=== PATIENT | male | born 1945 | race Caucasian/White ===

== ENCOUNTER 2021-07-19 15:16 | Inpatient (IN) | payer MEDICARE, OTHER, SELFPAY ==
[2021-07-19] VITALS (20 sets, daily range): BP systolic 124–175; BP diastolic 67–95; PULSE 57–127; RESP 18–32; TEMP 36–36.7; O2SAT 82–100; BMI 16.5
--- NOTE | ~2021-07-19 | XR_ITS ---
EXAMINATION: XR chest 1V portable EXAM DATE: 07/19/2021 15:36 INDICATION: COPD exacerbation. TECHNIQUE: Portable AP frontal chest x-ray was obtained. There is no prior study for comparison. FINDINGS: The lungs are hyperinflated which can be seen with chronic obstructive pulmonary disease (a clinical diagnosis of functional impairment), but is not diagnostic of it. There is scattered post infectious residua. Small amount of bibasilar linear opacities, probably atelectasis or scarring. No pneumothorax or pleural effusion. Bones appear osteopenic. Old right rib fractures. There is aortic a rteriosclerosis. Normal cardiac size. Several metallic pellets overlying right axilla. IMPRESSION: 1. Severe chronic hyperinflation. 2. Bibasilar linear opacities probably scarring or atelectasis. 3. Scattered postinfectious residua. Reviewed, dictated and finalized at location B.
--- NOTE | ~2021-07-19 | US_ITS ---
EXAMINATION: US venous doppler [facility] DATE: 07/21/2021 12:11 INDICATION: Lower limb swelling. TECHNIQUE: Grayscale ultrasound images without and with compression and Doppler ultrasound images of the bilateral lower extremity veins were obtained. COMPARISON: None. FINDINGS: The visualized portions of right common femoral vein, profunda (deep) femoral vein, femoral vein, pop liteal vein, peroneal veins, posterior tibial veins, and greater saphenous vein outflow are patent. S ubcutaneous edema is noted. The visualized portions of left common femoral vein, profunda femoral vein, femoral vein, popliteal v ein, peroneal veins, posterior tibial veins, and greater saphenous vein outflow are patent. Subcutane ous edema is noted. IMPRESSION: 1. No deep venous thrombosis. Reviewed, dictated and finalized at location A.
--- NOTE | 2021-07-19 15:19 | ED.GENADULT ---
HPI - General Adult General Chief complaint: Shortness of Breath/Dyspnea Stated complaint: SOB Time Seen by Provider: 07/19/21 15:18 Source: patient and EMS Mode of arrival: EMS Limitations: no limitations History of Present Illness HPI narrative: Patient brought in by EMS, they were called for shortness of breath. In route they treated Mr. Sweet with 125 mg of Solu-Medrol, 2 mg magnesium and an albuterol treatment. On arrival here he did best breathes in a tripod position. He states that he received his Covid vaccine last week, his 1st. he has had a congested but nonproductive cough. Onset (ago): day(s) Related Data Allergies Allergy/AdvReac Type Severity Reaction Status Date / Time No Known Drug Allergies Allergy Verified 07/19/21 18:17 Review of Systems Review of Systems: All systems reviewed & are unremarkable except as noted in HPI and below PMFSH Family History Family History Mother Family history of malignant neoplasm, Onset Age: 75 Father Carcinoma of colon, Onset Age: 75 Patient's father is Social History Social History (Updated 07/19/21 @ 16:34 by Concetta Michaels PA-C) Smoking status: Current every day smoker Alcohol intake: never Substance use: never Living arrangements: with family Additional living arrangements comments: , daughter and grandchildren Exam Const: General: alert Nutritional Appearance: thin (cahectic) Orientation/consciousness: patient oriented x3 HENMT: Head: normal to inspection Eyes: Conjunctivae: conjunctivae normal Pupils: Equal, round and reactive pupils present Resp: Effort & Inspection: labored, retractions and uses accessory muscles Auscultation: diminished lung sounds bilateral and diffuse Cardio: Rate: tachycardic Rhythm: regular rhythm Neuro: General: patient oriented x3 Extrem: General: clubbing Other: swelling to bilat LE up to mid calf Psych: Appearance: disheveled Mental Status: mental status grossly normal Course Course Emergency Course: spoke with hospitalist, will admit for BiPAP and IV abx. Plan discussed with patient, he is in agreement. RN had conversation with and is concerned for patients mental health, hospitalist updated and RN placed note in chart. Vital Signs Vital signs: Vital Signs Pulse Rate 127 H 07/19/21 15:16 Respiratory Rate 32 H 07/19/21 15:16 Blood Pressure 158/84 H 07/19/21 15:16 Pulse Oximetry 82 L 07/19/21 15:16 Pulse Rate 100 07/19/21 18:01 Respiratory Rate 24 H 07/19/21 18:01 Blood Pressure 158/84 H 07/19/21 15:16 Pulse Oximetry 94 07/19/21 18:01 Medical Decision Making Vital Signs Vital Signs: Vital Signs Pulse Rate 127 H 07/19/21 15:16 Respiratory Rate 32 H 07/19/21 15:16 Blood Pressure 158/84 H 07/19/21 15:16 Pulse Oximetry 82 L 07/19/21 15:16 Pulse Rate 100 07/19/21 18:01 Respiratory Rate 24 H 07/19/21 18:01 Blood Pressure 158/84 H 07/19/21 15:16 Pulse Oximetry 94 07/19/21 18:01 Lab Data Result diagrams: 07/19/21 15:42 07/19/21 15:42 Labs: Lab Results 07/19/21 07/19/21 Range/Units 15:42 15:42 WBC 15.8 H (4.5-10.0) K/mm3 RBC 3.91 L (4.6-6.20) M/mm3 Hgb 12.6 L (14.0-18.0) g/dL Hct 38.7 L (42.0-52.0) % MCV 99.0 (80-100) fl MCH 32.2 (26-34) pg MCHC 32.6 (32-36) g/dl RDW 14.1 (11.5-14.5) % Plt Count 341 (150-375) k/mm3 MPV 9.3 (7.4-10.4) fl Immature Gran % (Auto) Not Reportable Neut % (Auto) Not Reportable Lymph % (Auto) Not Reportable [place] % (Auto) Not Reportable Eos % (Auto) Not Reportable Baso % (Auto) Not Reportable Lymph # (Auto) Not Reportable [place] # (Auto) Not Reportable Eos # (Auto) Not Reportable Baso # (Auto) Not Reportable Abs Immat Gran (auto) Not Reportable Absolute Neuts (auto) Not Reportable Absolute Nucleated RBC
--- NOTE | 2021-07-19 15:24 | ECG_ITS ---
Measurements Intervals [place] Rate: 91 P: 83 MI: 147 QRS: 80 QRSD: 146 T: 70 QT: 370 QTc: 457 Interpretive Statements SINUS RHYTHM ATRIAL PREMATURE COMPLEX POSSIBLE LEFT ATRIAL ENLARGEMENT RIGHT BUNDLE BRANCH BLOCK MINIMAL Q WAVES- INFERIOR LEADS BASELINE ARTIFACT- I, II, III, AVR, V3-V6 ABNORMAL ECG Electronically Signed On 07-19-2021 18:58:34 CDT by Nicanor Chino D.O.
--- NOTE | 2021-07-19 15:43 | PC.NURSE ---
Pt's SpO2 91% while tripodding on side of bed. Pt's feet assisted into stretcher for portable chest x-ray. Pt SpO2 then decreased to 84% on the NC. Pt again to tripodding position on side of bed, SpO2 improved again to 93%. Respiratory now at bedside for gas then Bipap. Explain plan to patient, verbalized understanding.
[2021-07-19 15:58] LABS: Hematocrit 38.7 % (42.0-52.0); Hemoglobin 12.6 g/dL (14.0-18.0); Mean Corpuscular HGB Conc 32.6 g/dl (32-36); Mean Corpuscular Hemoglobin 32.2 pg (26-34); Mean Platelet Volume 9.3 fl (7.4-10.4); Platelet Count Result 341 k/mm3 (150-375); Red Blood Count 3.91 M/mm3 (4.6-6.20); Red Cell Distribution Width 14.1 % (11.5-14.5); White Blood Count 15.8 K/mm3 (4.5-10.0)
[2021-07-19 16:08] LABS: Alveolar/Arterial O2 Gradient 137.9 mmHg; Base Excess ABG 5.7 mEq/l (+/-2.0); Fractional Inspired Oxygen 36 %; HCO3 ABG 31.8 mEq/l (22.0-26.0); Oxygen Content ABG 16.6 %vol (16.0-22.0); Oxygen Saturation ABG 89.8 % (95.0-100.0); Oxyhemoglobin 87.5 % THb (90.0-100.0); PCO2 ABG 52.3 mmHg (35.0-45.0); PO2 ABG 58.1 mmHg (80.0-100.0); PO2 FiO2 Ratio Arterial Blood 1.61 %; Total Hemoglobin 13.5 g/dL (12.0-18.0); pH ABG 7.402 (7.350-7.450)
[2021-07-19 16:09] LABS: Device NASAL CANNULA; Modified Allen's Test Pass; Site Drawn LEFT BRACHIAL
[2021-07-19 16:26] LABS: Anion Gap 8 mmol/L (8-16); Blood Urea Nitrogen 20 mg/dL (9-20); Calcium 9.4 mg/dL (8.4-10.2); Carbon Dioxide 32 mmol/L (22-30); Chloride 94 mmol/L (98-107); Estimated CRCL calculation 77 ml/min; Estimated Glomerular Filt Rate > 60; Glucose 128 mg/dL (65-110); Sodium 134 mmol/L (137-145)
[2021-07-19 16:30] LABS: Band Neutrophils Percent 5 % (0-6); Lymphocytes Absolute Manual 0.79 K/mm3 (1.1-4.5); Monocytes Absolute Manual 1.26 K/mm3 (0.1-0.90); Monocytes Percent Manual 8 % (3-9); Neutrophils Absolute Manual 13.74 K/mm3 (1.3-6.7); Neutrophils Percent Manual 82 % (46-73); Platelet Estimate Adequate (Adequate); Total Cells Counted 100
--- NOTE | 2021-07-19 17:30 | PC.NURSE ---
Pt self-removed his Bipap mask, states he doesn't like it. Pt provided thorough education on what the bipap mask is doing for his lungs. Pt temporarily placed on a NRB mask. Pt needed to sit up on side of bed as soon as bipap mask came off, was previously able to rest legs up on bed with it on. Pt verbalized understanding of needing bipap, states he just wants a break for a few minutes, then will put it back on. Provider made aware. SpO2 95% on the NRB.
[2021-07-19] MEDS: IPRATROPIUM BR 0.02% INH SOLN 0.5 MG/2.5 ML VIAL INHALATION ×2 (17:45→20:16)
[2021-07-19] MEDS: ALBUTEROL SULFATE NEB 2.5 MG/3 ML INH INHALATION (17:50)
[2021-07-19] MEDS: levoFLOXacin 500 MG/D5W 100 ML 500 MG/100 ML BAG 100 MG IVPB (18:04)
--- NOTE | 2021-07-19 18:30 | PCCCNOTE ---
Called to ER for care coordination as patient wanting to complete form for DNR status. Spoke with patient he confirms that he is DNR, he does not have any healthcare power of workers compensation attorney, advance directive or living will. Asked if he wanted to discuss with his before completing form but he declines. POLST form completed by patient, NANDA Michaels and witnessed by associate director career services with patient.Copy placed on chart and copy given to patient. Patient understands that this is voluntary and it be changed or revoked.
--- NOTE | 2021-07-19 18:40 | PC.NURSE ---
This RN received phone call from patient's , Silvia. Silvia provided update on patient's condition. Silvia also reported concerns she heard from pt's friend. Silvia states that pt smokes approx 2 packs/day, pt smokes inside, therefore they have separate bedrooms. Silvia states that patient doesn't hardly come out of his bedroom. Silvia reports that pt has a gun in the garage, and that she just heard from his friend that he has been trying to get his friends to obtain bullets for his gun. Per Silvia relaying friends' concerns, this was due to pt having intentions to kill himself, driven by him being tired of not being able to breathe. Silvia reports no recent change in behavior other than his usual not hardly coming out of his bedroom, but she attributed that to his worsened shortness of breath over the last week. Silvia was tearful on the phone. Pt did not endorse SI initially upon arrival to ED/initial [place]. Discussed these concerns with the ED provider, states she will speak with admitting team about this conversation.
[2021-07-19] MEDS: ALBUTEROL SULFATE NEB 2.5 MG/0.5 ML INH 5 MG INHALATION (20:15)
--- NOTE | 2021-07-19 20:26 | PM.IMHP ---
H&P: HPI History of Present Illness Date/Time: 07/19/21 20:26 this is a 76-year-old male patient who resides with his . The patient has a history of COPD and still continues to smoke a pack and half a cigarettes a day. The patient tells me that he wears oxygen at home. He also has been using his albuterol inhaler without relief of symptoms. The patient was brought to the emergency room due to shortness of breath. EN route the patient was given Solu-Medrol and magnesium in the ambulance. The patient received his COVID vaccine last week. The patient was placed on a BiPAP machine and is very hard of hearing. The patient was started on Levaquin and nebulizer treatments. The patient is being admitted to observation status on the date of service of 07/19/2021. Chief Complaint: Shortness of breath shortness of breath Review of Systems Review of Systems: All systems reviewed & are unremarkable except as noted in HPI and below Constitutional: Constitutional: Reports as per HPI and Reports no additional constitutional complaints Eyes: Eyes: Reports as per HPI and Reports no additional eye complaints ENT: Reports system reviewed and no additional complaints, except as documented and Reports Normal hearing present Cardiovascular: Cardiovascular: Reports no additional cardiovascular complaints Respiratory: Respiratory: Reports no additional respiratory complaints and Reports no additional respiratory complaints Gastrointestinal: Gastrointestinal: Reports as per HPI and Reports no additional gastrointestinal complaints Musculoskeletal: Musculoskeletal: Reports no additional musculoskeletal complaints Integumentary/Breasts: Skin/Breast: Reports system reviewed and no additional complaints, except as docu and Reports as per HPI Neurologic: Reports system reviewed and no additional complaints, except as documented, Reports as per HPI and Reports Normal hearing present Psychiatric: Psychiatric: Reports no additional psychiatric complaints and Reports as per HPI Endocrine: Endocrine: Reports no additional endocrine complaints Hematologic/Lymphatic: Hematologic/Lymphatic: Reports no additional hematologic/lymphatic complaints Allergic/Immunologic: Allergic/Immunologic: Reports no additional allergic/immunologic complaints [facility] Past Medical History Medical History (Updated 07/19/21 @ 20:40 by Smitha Damon NP) Benign prostate hyperplasia Chronic respiratory failure with hypoxia and hypercapnia COPD (chronic obstructive pulmonary disease) Hypertension Tobacco abuse Surgical History Surgical History (Updated 07/19/21 @ 20:40 by Smitha Damon NP) H/O colonoscopy with polypectomy History of total left hip arthroplasty Family History Family History Mother Family history of malignant neoplasm, Onset Age: 75 Father Carcinoma of colon, Onset Age: 75 Patient's father is Social History Social History (Updated 07/19/21 @ 20:41 by Smitha Damon NP) Social History: The patient stated that he still continues to smoke 1 and half packs of cigarettes a day. He has had 5 children and he lives with his . The patient does have living well with him. 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 is durable power bankruptcy attorney for healthcare. Code status DNR Smoking status: Current every day smoker Alcohol intake: never Substance use: never Living arrangements: with family Additional living arrangements comments: , daughter and grandchildren Meds Home Medications and Allergies Allergies Allergy/AdvReac Type Severity Reaction Status Date / Time No Known Drug Allergies Allergy Verified 07/19/21 18:17 Vital Signs Vital Signs - 24 hr 07/19/21 15:16 07/19/21 15:38 07/19/21 15:45 Pulse Rate 127 H 94 Respiratory Rate 32 H 24 H Blood Pressure 158/84 H Pulse Oximetry 82 L 87 L 99 07/19/21 15:48 07/19/21 17:45 07/19/21
--- NOTE | 2021-07-19 21:55 | PC.NURSE ---
This RN spoke with patient regarding the previous statements made by his concerning suicidal ideations. Pt reports that these thoughts are not ongoing, that he is not currently having any thoughts of SI. Pt endorses having a gun at home and endorses previously having thoughts of taking his life with it due to his chronic worsening shortness of breath. Pt states that when he can't breath, his chest hurts from coughing, and he is struggling and panicking due to his SOB, that he has thought about ending it . Pt states that now that his breathing is improved since arriving at the hospital, that he does not foresee those thoughts coming back . Pt states the SI were solely related to him struggling to breathe and panicking. Denies any suicidal thoughts currently. Denies depressive feelings. This conversation was discussed with chargemaster specialistAKASH Wooten in ED, as well as warehouse team leader. No sitter needed at this time.
[2021-07-19] MEDS: NICOTINE (*PBKC) 21 MG PATCH 1 PATCH TRANSDERM (21:58)
[2021-07-19] MEDS: SODIUM CHLORIDE 0.9% IV 1,000 ML 125 ML IV CONT (21:58)
--- NOTE | 2021-07-19 22:20 | PC.NURSE ---
Repeat [place] score no risk due to the wording, since last asked . Pt acknowledges previous thoughts, has not had any of these thoughts or intentions since arriving to the hospital/initial [place].
--- NOTE | 2021-07-19 22:45 | ADMGEN ---
This patient, Manolo Sweet, was admitted to IMU Room 204-01. Patient/family oriented to hospital policies and general routines including ID bracelet, bed and alarms, visiting hours, pain management, procedures, bathroom and other care routines, personal items, smoking policy, room service/diet, and visiting hours. Information on how to activate the Rapid Response Team has been discussed. Patient/Family are encouraged to report perceived risks to care and to ask questions if they do not understand what they are told or what they should do.
--- NOTE | 2021-07-19 23:10 | PC.NURSE ---
Patient states he has planned for a long time now to commit suicide once his health deteriorated. States his original plan was to shoot himself with a firearm. States he communicated this plan to a friend who communicated this plan to a family member who then removed the bullets from his firearm. Patient states he recently attempted to use his firearm and noted bullets had been removed. Patient states these events have occured within the last month.
[2021-07-19] MEDS: methylPREDNISolone SOD SUCC 125 MG VIAL 60 MG IV PUSH (23:38)
[2021-07-20] VITALS (22 sets, daily range): BP systolic 148–187; BP diastolic 68–88; PULSE 68–86; RESP 16–26; TEMP 36.4–37; O2SAT 90–94; BMI 16.5
[2021-07-20] MEDS: ALBUTEROL SULFATE NEB 2.5 MG/0.5 ML INH 5 MG INHALATION ×4 (01:09→21:14)
[2021-07-20] MEDS: IPRATROPIUM BR 0.02% INH SOLN 0.5 MG/2.5 ML VIAL INHALATION ×4 (01:09→21:14)
[2021-07-20 04:48] LABS: Basophils Percent Auto 0.1 % (0.2-1.2); Hematocrit 36.8 % (42.0-52.0); Hemoglobin 11.9 g/dL (14.0-18.0); Immature Granulocyte Absolute 0.08 K/mm3 (0.00-0.031); Immature Granulocyte Percent A 0.7 % (0-0.5); Lymphocytes Percent Auto 2.8 % (18.3-44.2); Mean Corpuscular HGB Conc 32.3 g/dl (32-36); Mean Corpuscular Hemoglobin 31.8 pg (26-34); Mean Corpuscular Volume 98.4 fl (80-100); Monocytes Absolute Auto 0.1 K/mm3 (0.1-0.6); Monocytes Percent Auto 0.7 % (2.6-8.5); Neutrophils Absolute Auto 10.2 K/mm3 (1.3-6.7); Neutrophils Percent Auto 95.7 % (45.5-73.1); Platelet Count Result 304 k/mm3 (150-375); Red Blood Count 3.74 M/mm3 (4.6-6.20); White Blood Count 10.7 K/mm3 (4.5-10.0)
[2021-07-20 04:59] LABS: Alanine Aminotransferase 20 U/L (4-50); Albumin Level 3.3 g/dL (3.5-5.1); Alkaline Phosphatase 83 U/L (38-126); Anion Gap 5 mmol/L (8-16); Aspartate Amino Transferase 24 U/L (17-59); Bilirubin,Total 0.6 mg/dL (0.2-1.3); Blood Urea Nitrogen 24 mg/dL (9-20); Calcium 9.2 mg/dL (8.4-10.2); Carbon Dioxide 31 mmol/L (22-30); Chloride 98 mmol/L (98-107); Estimated CRCL calculation 73 ml/min; Estimated Glomerular Filt Rate > 60; Glucose 174 mg/dL (65-110); Magnesium 2.5 mg/dL (1.6-2.3); Potassium 4.6 mmol/L (3.4-5.0); Sodium 134 mmol/L (137-145)
[2021-07-20] MEDS: SODIUM CHLORIDE 0.9% IV 1,000 ML 125 ML IV CONT (06:02)
[2021-07-20] MEDS: methylPREDNISolone SOD SUCC 125 MG VIAL 60 MG IV PUSH ×4 (06:03→23:48)
[2021-07-20] MEDS: ROFLUMILAST 500 MCG TABLET PO (09:02)
[2021-07-20] MEDS: ENOXAPARIN 40 MG/0.4 ML SYRINGE SUB-Q (09:02)
[2021-07-20] MEDS: TAMSULOSIN HCL 0.4 MG CAPSULE PO (09:02)
[2021-07-20] MEDS: NICOTINE (*PBKC) 21 MG PATCH 1 PATCH TRANSDERM (09:03)
--- NOTE | 2021-07-20 13:35 | PM.IMPN ---
Progress Note: A&P Assessment and Plan (1) Suicidal behavior: Code(s): R45.89 - Other symptoms and signs involving emotional state Status: Acute Assessment and Plan: Patient was in the IMU and according the records he made a statement that he wanted to shoot himself in the head, patient was transferred to the ICU for suicidal precautions - Continue sitter at bedside -patient currently denies any homicidal or suicidal ideation or behavior, he states that the interviewer last night did not get it correct as he does not want to harm himself at this time but he had in the past. -once medically stable will have crisis management evaluate the patient (2) COPD (chronic obstructive pulmonary disease): Code(s): J44.9 - Chronic obstructive pulmonary disease, unspecified Status: Chronic Assessment and Plan: COPD exacerbation r -continue levofloxacin -continue roflumilast -continue Solu-Medrol and supplemental oxygen (3) Tobacco abuse: Code(s): Z72.0 - Tobacco use Status: Chronic Assessment and Plan: Discussed with patient regarding cessation of smoking -patient has a nicotine patch (4) Benign prostate hyperplasia: Code(s): N40.0 - Benign prostatic hyperplasia without lower urinary tract symptoms Status: Chronic Assessment and Plan: Continue tamsulosin (5) Hypertension: Code(s): I10 - Essential (primary) hypertension Status: Chronic Assessment and Plan: Will add small dose of amlodipine Subjective Date/time seen: 07/20/21 13:35 Interval history: 76-year-old gentleman with history of COPD on home oxygen, tobacco abuse was admitted for COPD exacerbation. He was transferred to the ICU for suicidal ideation overnight. Patient seen and examined this morning, sitting on the side of the bed having breakfast. Patient states he feels much better, remains on 3 L nasal cannula with adequate O2 sats. Urine output has been adequate, patient is afebrile. White count trending down. Patient states he is not suicidal or homicidal and that the person was interviewing him last night guarded draw as he had said he was suicidal in the past but not at this time. Patient denies any chest pain, nausea, vomiting, abdominal pain, diarrhea Review of Systems Review of Systems: All systems reviewed & are unremarkable except as noted in HPI and below Exam Const: General: comfortable and no acute distress HENMT: Mouth: Yes moist mucous membranes Eyes: Sclera: sclerae normal Pupils: Equal, round and reactive pupils present Neck: Neck: supple Thyroid: thyroid normal Lymphatic: lymphadenopathy not noted Resp: Effort & Inspection: normal respiratory effort Auscultation: rales and diminished lung sounds Cardio: Rate: regular rate Rhythm: regular rhythm GI: Inspection: non-distended GI Palp: Yes Soft to palpation and No Tenderness to palpation present (GI) Auscultation: normal bowel sounds : Other: Deferred Urinary Catheter: Urinary Catheter: urine clear Skin: General skin exam: normal color and no rashes or lesions noted Neuro: Other: Patient is awake, alert, oriented, nonfocal, follows simple commands and answers to questions appropriately Extrem: General: normal to inspection, no edema and no pedal edema Psych: Mental Status: mental status grossly normal Affect: normal affect Objective Data Vital Signs Vital Signs: Vital Signs - 24 hr 07/19/21 15:16 07/19/21 15:38 07/19/21 15:45 Temperature Pulse Rate 127 H 94 Respiratory Rate 32 H 24 H Blood Pressure 158/84 H Pulse Oximetry 82 L 87 L 99 07/19/21 15:48 07/19/21 16:00 07/19/21 16:30 Temperature 98.1 F Pulse Rate 103 H 97 95 Respiratory Rate 30 H 30 H 28 H Blood Pressure 175/75 H 157/74 H Pulse Oximetry 93 93 99 07/19/21 17:45 07/19/21 17:55 07/19/21 17:56 Temperature Pulse Rate 104 H 100 94 Respiratory Rate 24 H 24 H 28 H Blood Pressure Pulse Oximetry
[2021-07-21] VITALS (18 sets, daily range): BP systolic 133–155; BP diastolic 61–86; PULSE 72–100; RESP 16–27; TEMP 36.4–36.6; O2SAT 86–94
[2021-07-21] MEDS: ALBUTEROL SULFATE NEB 2.5 MG/0.5 ML INH 5 MG INHALATION ×2 (02:53→08:52)
[2021-07-21] MEDS: IPRATROPIUM BR 0.02% INH SOLN 0.5 MG/2.5 ML VIAL INHALATION ×2 (02:54→08:53)
[2021-07-21] MEDS: methylPREDNISolone SOD SUCC 125 MG VIAL 60 MG IV PUSH ×2 (05:29→12:28)
[2021-07-21] MEDS: ENOXAPARIN 40 MG/0.4 ML SYRINGE SUB-Q (09:48)
[2021-07-21] MEDS: amLODIPine BESYLATE 5 MG TABLET PO (09:48)
[2021-07-21] MEDS: TAMSULOSIN HCL 0.4 MG CAPSULE PO (09:49)
[2021-07-21] MEDS: ROFLUMILAST 500 MCG TABLET PO (09:49)
[2021-07-21] MEDS: NICOTINE (*PBKC) 21 MG PATCH 1 PATCH TRANSDERM (09:49)
--- NOTE | 2021-07-21 13:56 | PCRCNOTE ---
Pt has home O2 currently with [facility] fx [phone] ph # [phone] Pt requires 2 L at rest and 4L with activity
--- NOTE | 2021-07-21 14:08 | PM.DS ---
DS: Admitting Diagnosis Discharge Date 07/21/2021 Admitting Diagnosis shortness of breath DS: Discharge Diagnosis Discharge Diagnosis (1) Suicidal behavior: Code(s): R45.89 - Other symptoms and signs involving emotional state Status: Acute Assessment and Plan: Patient was in the IMU and according the records he made a statement that he wanted to shoot himself in the head, patient was transferred to the ICU for suicidal precautions - Continue sitter at bedside -patient currently denies any homicidal or suicidal ideation or behavior, he states that the interviewer last night did not get it correct as he does not want to harm himself at this time but he had in the past. -once medically stable will have crisis management evaluate the patient (2) COPD (chronic obstructive pulmonary disease): Code(s): J44.9 - Chronic obstructive pulmonary disease, unspecified Status: Chronic Assessment and Plan: COPD exacerbation r -continue levofloxacin -continue roflumilast -continue Solu-Medrol and supplemental oxygen (3) Tobacco abuse: Code(s): Z72.0 - Tobacco use Status: Chronic Assessment and Plan: Discussed with patient regarding cessation of smoking -patient has a nicotine patch (4) Benign prostate hyperplasia: Code(s): N40.0 - Benign prostatic hyperplasia without lower urinary tract symptoms Status: Chronic Assessment and Plan: Continue tamsulosin (5) Hypertension: Code(s): I10 - Essential (primary) hypertension Status: Chronic Assessment and Plan: Will add small dose of amlodipine DS: Summary Hospital Course Reason for hospitalization: this is a 76-year-old male patient who resides with his . The patient has a history of COPD and still continues to smoke a pack and half a cigarettes a day. The patient tells me that he wears oxygen at home. He also has been using his albuterol inhaler without relief of symptoms. The patient was brought to the emergency room due to shortness of breath. EN route the patient was given Solu-Medrol and magnesium in the ambulance. The patient received his COVID vaccine last week. The patient was placed on a BiPAP machine and is very hard of hearing. The patient was started on Levaquin and nebulizer treatments. The patient is being admitted to observation status on the date of service of 07/19/2021. Chief Complaint: Shortness of breath shortness of breath Hospital Course: patient is 76-year-old male admitted with exacerbation of COPD patient had mentioned given to commit suicide, currently patient says he has no intention harm self, patient was seen by crisis team his med agreement with the patient to contact them and they went patient presenting with worse, will discharge patient home on tapering dose of steroid and he will continue DuoNeb home will give a short course of oral antibiotics. patient to follow-up with his primary care as soon as possible. Status at Discharge Functional status at discharge: uses cane/walker Overall status at discharge: patient is not back to baseline Time Spent with Patient Time attestation: Total time spent providing and/or coordinating discharge services: Patient was seen and examined at the time of the discharge Condition at discharge is stable Code status: Full code. Time spent preparing discharge summary, discharge medications, discussing discharge planning with case repairer and patient is 35 minutes. Time spent: Greater than 30 minutes Exam Narrative: appears chronically ill Patient is comfortable, NAD HEENT: eyes are clear and none icteric LUNGS: bilateral fair air entry with rhonchi and wheezing HEART: RR S1S2 ABD: BS+, Soft and nontender Lower extremities: no edema SKIN: nonjaundiced Neuro: grossly intact. DS: Data Data Completed and Pending Labs on day of discharge: Preliminary micro results at discharge 07/19/21 16:58 Blood Culture - Preliminary Blo
--- NOTE | 2021-07-21 14:47 | HOMEO2EVAL ---
Evaluation was performed at [facility] Home Oxygen Evaluation RC: Home Oxygen (O2) Evaluation Start: 07/21/21 12:46 Freq: ONCE Status: Active Protocol: RPE Activity Type Activity Date Activity User E-Sign Co-Sign Detail Recorded Client Recorded Date Recorded By Document 07/21/21 13:25 TUCKER [id number] 07/21/21 13:51 TUCKER Document 07/21/21 13:26 TUCKER [id number] 07/21/21 13:51 TUCKER Document 07/21/21 13:27 TUCKER [id number] 07/21/21 13:51 TUCKER Document 07/21/21 13:28 TUCKER [id number] 07/21/21 13:51 TUCKER Document 07/21/21 13:30 TUCKER [id number] 07/21/21 13:51 TUCKER Document 07/21/21 13:31 TUCKER [id number] 07/21/21 13:51 TUCKER Document 07/21/21 13:40 TUCKER [id number] 07/21/21 13:51 TUCKER 07/21/21 07/21/21 07/21/21 13:25 13:26 13:27 Home O2 Evaluation Test Phase Resting Resting Resting Oxygen Delivery Room Air Nasal Cannula Nasal Cannula Oxygen Flow Rate (L/min) 1 2 Pulse Oximetry (90-100 %) 86 L 87 L 91 Pulse Rate (60-100 beats/min) 84 84 Home Oxygen Evaluation Comments Treatment Charges O2 Evaluation - Inpatient 07/21/21 07/21/21 07/21/21 13:28 13:30 13:31 Home O2 Evaluation Test Phase Exercise Exercise Exercise Oxygen Delivery Nasal Cannula Nasal Cannula Nasal Cannula Oxygen Flow Rate (L/min) 2 3 4 Pulse Oximetry (90-100 %) 86 L 87 L 90 Pulse Rate (60-100 beats/min) 92 93 Home Oxygen Evaluation Comments Pt requires 2 L at rest and 4 L with activity Treatment Charges 07/21/21 13:40 Home O2 Evaluation Test Phase Resting Oxygen Delivery Nasal Cannula Oxygen Flow Rate (L/min) 2 Pulse Oximetry (90-100 %) 94 Pulse Rate (60-100 beats/min) 83 Home Oxygen Evaluation Comments Treatment Charges
--- NOTE | 2021-07-21 14:50 | HOMEO2EVAL ---
Evaluation was performed at [facility] Home Oxygen Evaluation RC: Home Oxygen (O2) Evaluation Start: 07/21/21 12:46 Freq: ONCE Status: Active Protocol: RPE Activity Type Activity Date Activity User E-Sign Co-Sign Detail Recorded Client Recorded Date Recorded By Document 07/21/21 13:25 TUCKER [id number] 07/21/21 13:51 TUCKER Document 07/21/21 13:26 TUCKER [id number] 07/21/21 13:51 TUCKER Document 07/21/21 13:27 TUCKER [id number] 07/21/21 13:51 TUCKER Document 07/21/21 13:28 TUCKER [id number] 07/21/21 13:51 TUCKER Document 07/21/21 13:30 TUCKER [id number] 07/21/21 13:51 TUCKER Document 07/21/21 13:31 TUCKER [id number] 07/21/21 13:51 TUCKER Document 07/21/21 13:40 TUCKER [id number] 07/21/21 13:51 TUCKER 07/21/21 07/21/21 07/21/21 13:25 13:26 13:27 Home O2 Evaluation Test Phase Resting Resting Resting Oxygen Delivery Room Air Nasal Cannula Nasal Cannula Oxygen Flow Rate (L/min) 1 2 Pulse Oximetry (90-100 %) 86 L 87 L 91 Pulse Rate (60-100 beats/min) 84 84 Home Oxygen Evaluation Comments Treatment Charges O2 Evaluation - Inpatient 07/21/21 07/21/21 07/21/21 13:28 13:30 13:31 Home O2 Evaluation Test Phase Exercise Exercise Exercise Oxygen Delivery Nasal Cannula Nasal Cannula Nasal Cannula Oxygen Flow Rate (L/min) 2 3 4 Pulse Oximetry (90-100 %) 86 L 87 L 90 Pulse Rate (60-100 beats/min) 92 93 Home Oxygen Evaluation Comments Pt requires 2 L at rest and 4 L with activity Treatment Charges 07/21/21 13:40 Home O2 Evaluation Test Phase Resting Oxygen Delivery Nasal Cannula Oxygen Flow Rate (L/min) 2 Pulse Oximetry (90-100 %) 94 Pulse Rate (60-100 beats/min) 83 Home Oxygen Evaluation Comments Treatment Charges
--- NOTE | 2021-07-21 14:50 | PCRCNOTE ---
Home O2 established with [facility]. Family member to bring in portable tank from home for transport home. New order, insurance, cantacts and eval faxed to [facility].
== END 2021-07-21 15:43 | disposition home or self-care (01) | DRG 191 ==
LOC: ANHED 17:07 → ANHIMU 21:50 → ANHICU 07-20 01:33
PROVIDERS: Nurse Practitioner; Physician Assistant; Admitting Provider Family Medicine; Emergency Provider Family Medicine; PCP Family Medicine; Visit Provider Family Medicine
DX: J44.1 Chronic obstructive pulmonary disease with (acute) exacerbation (principal); J96.11 Chronic respiratory failure with hypoxia; J96.12 Chronic respiratory failure with hypercapnia; R64 Cachexia; Z68.1 Body mass index [BMI] 19.9 or less, adult; R45.89 Other symptoms and signs involving emotional state; N40.0 Benign prostatic hyperplasia without lower urinary tract symptoms; I10 Essential (primary) hypertension; F17.210 Nicotine dependence, cigarettes, uncomplicated; Z99.81 Dependence on supplemental oxygen
CPT/HCPCS: 36415; 36600; 71045; 80048; 80053; 82805; 83605; 83735; 85025; 87040; 93005; 93970; 94618; 94640; 96361; 96365; 96372; 96375; 96376; 99285; A9270; G0378; J1650; J1956; J2930; J7030

== ENCOUNTER 2021-08-02 11:51 | Inpatient (IN) | payer MEDICARE, OTHER, SELFPAY ==
[2021-08-02] VITALS (21 sets, daily range): BP systolic 138–152; BP diastolic 58–81; PULSE 67–96; RESP 14–30; TEMP 36.4–37.2; O2SAT 88–100; BMI 18.2
--- NOTE | ~2021-08-02 | CT_ITS ---
EXAMINATION: CTA chest PE protocol EXAM DATE: 08/02/2021 18:01 INDICATION: Increase oxygen demand. TECHNIQUE: Spiral CTA of the chest (pulmonary arteries) was performed with 100 cc Omnipaque 350 intr avenous contrast injection. Images were acquired during the pulmonary arterial phase. Coronal maxi mum intensity projection 3D-reconstructions were created by the technologist on dedicated workstation . Axial, coronal and sagittal reformatted images were reviewed. The dose-length product (DLP) for t his examination was 406.01 mGy-cm. The exposure was tailored according to patient size (auto mA exp osure control), and iterative reconstruction (ASIR) was used as additional dose reduction technique. Comparison is made to prior examination from 07/22/2018. FINDINGS: No pulmonary arterial filling defects, no pulmonary emboli suspected. The main, central pul monary arteries are dilated which can indicate elevated pulmonary arterial pressure, pulmonary arteri al hypertension. Small to moderate bilateral pleural effusions. There is multi segmental left lower lobe, segmental right lower lobe amount of atelectasis. Most of the right lower lobe bronchi appear occluded, probably with endobronchial debris/mucus given the low density. Less amount of endobronchia l debris in the left lower lobe segmental bronchi. There is persistent right upper lobe opacity consistent with scarring. There is severe emphysema and moderate hyperinflation. Mild cardiomegaly. There are no osteoblastic or osteolytic lesions identifie d. IMPRESSION: 1. Bilateral lower lobe atelectasis, multi segmental on the left likely from combination of compress kei atelectasis due to small to moderate pleural effusions, and rather extensive endobronchial mucous plugging. 2. Cardiomegaly. Pulmonary arterial hypertension. 3. Severe emphysema. 4. Cachexia, anasarca. Reviewed, dictated and finalized at location A. DESIGNER IMPRESSION: 1. Bilateral lower lobe atelectasis, multi segmental on the left likely from c ombination of compressive atelectasis due to small to moderate pleural effusion s, and rather extensive endobronchial mucous plugging. 2. Cardiomegaly. Pulmonary arterial hypertension. 3. Severe emphysema. 4. Cachexia, anasarca.
--- NOTE | ~2021-08-02 | XR_ITS ---
EXAMINATION: XR chest 2V DATE: 08/02/2021 13:00 INDICATION: Shortness of breath. TECHNIQUE: Frontal and lateral views of the chest were obtained. COMPARISON: Chest single view 07/19/2021, chest CT 07/22/2018 FINDINGS: There are lucencies in the lungs, consistent with emphysema. There is chronic mild elevatio n of left hemidiaphragm. There is mild scarring at the lung apices. There are airspace opacities in t he mid and lower lung zones with a basilar predominance. There are small pleural effusions. No pneumo thorax. The heart size is normal. IMPRESSION: 1. Airspace opacities in the mid and lower lung zones with a basilar predominance, consistent with at electasis versus pneumonia. 2. Small pleural effusions. 3. Severe emphysema. Reviewed, dictated and finalized at location A. HER IMPRESSION: 1. Airspace opacities in the mid and lower lung zones with a basilar predominan ce, consistent with atelectasis versus pneumonia. 2. Small pleural effusions. 3. Severe emphysema.
--- NOTE | ~2021-08-02 | XR_ITS ---
EXAMINATION: XR chest 2V DATE: 08/05/2021 13:13 INDICATION: Pneumonia. TECHNIQUE: Frontal and lateral views of the chest were obtained on 3 radiographs. COMPARISON: Chest 2 views 08/02/2021, chest CT 08/02/2021, 07/22/2018 FINDINGS: The lungs are hyperexpanded with lucencies, consistent with emphysema. There is chronic mil d relative elevation of left hemidiaphragm. There is mild scarring at the lung apices. There are airs pace opacities at the lung bases. There are small pleural effusions. No pneumothorax. The heart size is normal. There are old healed right rib fractures. There are chronic small radiopaque foreign raghav s in right chest wall. IMPRESSION: 1. Severe emphysema. 2. Improved airspace opacities at the lung bases, consistent with atelectasis versus pneumonia. 3. Stable small pleural effusions. Reviewed, dictated and finalized at location A. IAL CRIMES INVESTIGATOR IMPRESSION: 1. Severe emphysema. 2. Improved airspace opacities at the lung bases, consistent with atelectasis v ersus pneumonia. 3. Stable small pleural effusions.
--- NOTE | ~2021-08-02 | US_ITS ---
EXAMINATION: US venous doppler [facility] DATE: 08/03/2021 15:07 INDICATION: Upper limb swelling. TECHNIQUE: Grayscale ultrasound images without and with compression and Doppler ultrasound images of the right upper extremity veins were obtained. The patient refused evaluation of the left upper limb. COMPARISON: None. FINDINGS: The visualized portions of the right internal jugular vein, subclavian vein, axillary vein, brachial veins, basilic vein, cephalic vein, radial vein, and ulnar vein are patent. IMPRESSION: 1. No deep venous thrombosis in the right upper limb. 2. The patient refused evaluation of the left upper limb. Reviewed, dictated and finalized at location A. OR TUG CAPTAIN
--- NOTE | 2021-08-02 12:28 | ECG_ITS ---
Measurements Intervals David Rate: 76 P: 96 AL: 139 QRS: 31 QRSD: 165 T: 41 QT: 398 QTc: 450 Interpretive Statements SINUS RHYTHM ATRIAL AND VENTRICULAR PREMATURE COMPLEXES RIGHT BUNDLE BRANCH BLOCK BASELINE ARTIFACT- I, II, III, AVR, AVL, AVF, V2-V6 ABNORMAL ECG Electronically Signed On 08-02-2021 13:01:24 GUEST SERVICE AIDE by Nicanor Chino D.O.
[2021-08-02] MEDS: IPRATROPIUM BR 0.02% INH SOLN 0.5 MG/2.5 ML VIAL INHALATION ×2 (12:40→20:03)
[2021-08-02] MEDS: ALBUTEROL SULFATE NEB 2.5 MG/0.5 ML INH 5 MG INHALATION (12:40)
[2021-08-02 12:49] LABS: Basophils Percent Auto 0.1 % (0.2-1.2); Eosinophils Percent Auto 0.1 % (0-4.4); Hematocrit 31.6 % (42.0-52.0); Hemoglobin 10.9 g/dL (14.0-18.0); Immature Granulocyte Absolute 0.04 K/mm3 (0.00-0.031); Immature Granulocyte Percent A 0.5 % (0-0.5); Lymphocytes Absolute Auto 0.24 K/mm3 (0.9-3.2); Lymphocytes Percent Auto 2.7 % (18.3-44.2); Mean Corpuscular HGB Conc 34.5 g/dl (32-36); Mean Corpuscular Hemoglobin 32.5 pg (26-34); Mean Corpuscular Volume 94.3 fl (80-100); Mean Platelet Volume 9.7 fl (7.4-10.4); Monocytes Absolute Auto 0.2 K/mm3 (0.1-0.6); Monocytes Percent Auto 1.9 % (2.6-8.5); Neutrophils Absolute Auto 8.3 K/mm3 (1.3-6.7); Neutrophils Percent Auto 94.7 % (45.5-73.1); Platelet Count Result 203 k/mm3 (150-375); Red Blood Count 3.35 M/mm3 (4.6-6.20); Red Cell Distribution Width 14.9 % (11.5-14.5); White Blood Count 8.8 K/mm3 (4.5-10.0)
[2021-08-02 13:04] LABS: Anion Gap 2 mmol/L (8-16); Blood Urea Nitrogen 24 mg/dL (9-20); Calcium 8.5 mg/dL (8.4-10.2); Carbon Dioxide 29 mmol/L (22-30); Chloride 104 mmol/L (98-107); Estimated CRCL calculation 75 ml/min; Estimated Glomerular Filt Rate > 60; Glucose 135 mg/dL (65-110); Potassium 3.8 mmol/L (3.4-5.0); Sodium 135 mmol/L (137-145)
[2021-08-02 13:16] LABS: NT Pro B Type Natriuretic Pept 1690 pg/mL (5-100); Troponin I < 0.012 ng/mL (0.000-0.034)
--- NOTE | 2021-08-02 13:45 | ED.SOB ---
HPI - SOB/Dyspnea General Chief Complaint: Shortness of Breath/Dyspnea Stated Complaint: difficulty walking Time Seen by Provider: 08/02/21 12:07 Source: patient Mode of arrival: ambulatory Limitations: no limitations History of Present Illness HPI Narrative: 76-year-old male History of COPD, discharge from the hospital here about 2 weeks ago, on a steroid taper and completion of a brief course of Levaquin Returns via EMS with a couple different concerns He tells me that he had a friend that was concerned about some bruising and swelling that he has around his elbows I think he reported to EMS that he was having difficulty getting up and walking around There is some notion also record that he is having worsening shortness of breath However he tells me that his breathing is actually a little bit better and that his cough is actually a little bit improved He continues to use 3 L of home oxygen at all times and does sometimes feel like he needs more with activity He does continue to use his nebulizer usually 4 times a day Related Data Home Medications Medication Instructions Recorded Confirmed Daliresp 500 mcg PO DAILY 07/19/21 07/19/21 albuterol sulfate 2.5 mg CONTINUOUS NEBULIZATION QID 07/19/21 07/19/21 PRN tamsulosin 0.4 mg PO DAILY 07/19/21 07/19/21 Allergies Allergy/AdvReac Type Severity Reaction Status Date / Time No Known Allergies Allergy Verified 08/02/21 12:08 Review of Systems Review of Systems: All systems reviewed & are unremarkable except as noted in HPI and below Constitutional: Constitutional: Reports no additional constitutional complaints, Denies chills, Reports fatigue, Denies fever(s), Denies headache(s) and Reports weakness Eyes: Eyes: Reports no additional eye complaints and Denies change in vision ENT: Denies headache(s) and Denies sore throat Cardiovascular: Cardiovascular: Denies chest pain and Denies dyspnea Respiratory: Respiratory: Reports cough, Reports dyspnea and Reports wheezing Gastrointestinal: Gastrointestinal: Denies abdominal pain, Denies diarrhea and Denies vomiting Genitourinary: Genitourinary: Denies dysuria and Denies urinary frequency Musculoskeletal: Musculoskeletal: Reports myalgias, Denies deformity, Denies arthralgias, Denies joint swelling and Denies numbness Integumentary/Breasts: Skin/Breast: Denies rash and Denies wounds Neurologic: Denies headache(s), Denies focal weakness and Denies numbness Psychiatric: Psychiatric: Reports no additional psychiatric complaints Endocrine: Endocrine: Reports no additional endocrine complaints Hematologic/Lymphatic: Hematologic/Lymphatic: Reports no additional hematologic/lymphatic complaints Allergic/Immunologic: Allergic/Immunologic: Reports no additional allergic/immunologic complaints PMFSH Past Medical History Medical History Benign prostate hyperplasia Chronic respiratory failure with hypoxia and hypercapnia COPD (chronic obstructive pulmonary disease) Hypertension Tobacco abuse Surgical History Surgical History H/O colonoscopy with polypectomy History of total left hip arthroplasty Family History Family History Mother Family history of malignant neoplasm, Onset Age: 75 Father Carcinoma of colon, Onset Age: 75 Patient's father is Social History Social History Social History: The patient stated that he still continues to smoke 1 and half packs of cigarettes a day. He has had 5 children and he lives with his . The patient does have living well with him. 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 Code status DNR Smoking packs per day: 2 Smoking cigarettes per day: 40.0 Years smoked: 65 Smoking pack-years: 130.0
--- NOTE | 2021-08-02 16:14 | PM.IMHP ---
H&P: HPI History of Present Illness Date/Time: 08/02/21 16:14 this is a 76-year-old male patient who was recently discharged from here on 07/21/2021. He has a history of COPD and tobacco use. The patient wears chronic oxygen at home and is typically on about 4.5 L per nasal cannula. The patient did complete his dose of Levaquin that he was taking at home. His is at the bedside and answering questions for him. The stated that she has been monitoring his pulse ox and that he has required more oxygen. The patient received a COVID vaccine approximately 2 weeks ago. The patient does me that he quit smoking almost a week ago. However the was instructed to bring the patient to the emergency room for that his primary care doctor due to increased demand of oxygen levels. The patient is still on a steroid taper however his white count was normal today where his when he was discharged was 10.7 and previously was 15.8. The patient was swabbed for COVID-19 in the emergency room. 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 The patient stated that he does use his nebulizers at home and takes his Daliresp. He also stated that he has been taking a prednisone taper as well he has been taking that religiously. Chest x-ray was read as airspace opacities in the mid and lower lung zones with basilar prominence, consistent with atelectasis versus pneumonia. Small pleural effusions. Some very emphysema. However the ED physician felt that the chest x-ray was worse than his previous x-ray. The patient was placed on cefepime and vancomycin. The patient is afebrile at this time. The patient is being admitted to observation status on the date of service of 08/02/2021. Chief Complaint: Shortness of breath Review of Systems Review of Systems: All systems reviewed & are unremarkable except as noted in HPI and below Constitutional: Constitutional: Reports as per HPI and Reports no additional constitutional complaints Eyes: Eyes: Reports as per HPI and Reports no additional eye complaints ENT: Reports system reviewed and no additional complaints, except as documented and Reports Normal hearing present Cardiovascular: Cardiovascular: Reports no additional cardiovascular complaints Respiratory: Respiratory: Reports no additional respiratory complaints and Reports no additional respiratory complaints Gastrointestinal: Gastrointestinal: Reports as per HPI and Reports no additional gastrointestinal complaints Musculoskeletal: Musculoskeletal: Reports no additional musculoskeletal complaints Integumentary/Breasts: Skin/Breast: Reports system reviewed and no additional complaints, except as docu and Reports as per HPI Neurologic: Reports system reviewed and no additional complaints, except as documented, Reports as per HPI and Reports Normal hearing present Psychiatric: Psychiatric: Reports no additional psychiatric complaints and Reports as per HPI Endocrine: Endocrine: Reports no additional endocrine complaints Hematologic/Lymphatic: Hematologic/Lymphatic: Reports no additional hematologic/lymphatic complaints Allergic/Immunologic: Allergic/Immunologic: Reports no additional allergic/immunologic complaints [facility] Past Medical History Medical History Benign prostate hyperplasia Chronic respiratory failure with hypoxia and hypercapnia COPD (chronic obstructive pulmonary disease) Hypertension Tobacco abuse Surgical History Surgical History H/O colonoscopy with polypectomy History of total left hip arthroplasty Family History Family History Mother Family history of malignant neoplasm, Onset Age: 75 Father Carcinoma of colon, Onset Age: 75 Patient's father is Social History Social History (Updated 08/02/21 @ 16:21
[2021-08-02] MEDS: LACTATED RINGERS 1,000 ML 50 ML IV CONT (16:25)
--- NOTE | 2021-08-02 18:08 | ADMGEN ---
This patient, Manolo Sweet, was admitted to 3 Med Surg Room 303-01. Patient/family oriented to hospital policies and general routines including ID bracelet, bed and alarms, visiting hours, pain management, procedures, bathroom and other care routines, personal items, smoking policy, room service/diet, and visiting hours. Information on how to activate the Rapid Response Team has been discussed. Patient/Family are encouraged to report perceived risks to care and to ask questions if they do not understand what they are told or what they should do.
[2021-08-03] VITALS (15 sets, daily range): BP systolic 130–152; BP diastolic 55–76; PULSE 64–81; RESP 12–20; TEMP 36.1–36.4; O2SAT 88–95; BMI 18.2
[2021-08-03] MEDS: IPRATROPIUM BR 0.02% INH SOLN 0.5 MG/2.5 ML VIAL INHALATION ×4 (02:40→21:05)
[2021-08-03 06:28] LABS: Lactic Acid Reflex 0.6 mmol/L (0.7-2.1)
[2021-08-03 06:29] LABS: Alanine Aminotransferase 40 U/L (4-50); Albumin Level 2.8 g/dL (3.5-5.1); Alkaline Phosphatase 56 U/L (38-126); Anion Gap 3 mmol/L (8-16); Aspartate Amino Transferase 21 U/L (17-59); Blood Urea Nitrogen 19 mg/dL (9-20); Calcium 8.3 mg/dL (8.4-10.2); Carbon Dioxide 27 mmol/L (22-30); Chloride 104 mmol/L (98-107); Estimated CRCL calculation 93 ml/min; Estimated Glomerular Filt Rate > 60; Glucose 81 mg/dL (65-110); Lactate Dehydrogenase 342 U/L (313-618); Magnesium 2.1 mg/dL (1.6-2.3); Potassium 3.5 mmol/L (3.4-5.0); Sodium 134 mmol/L (137-145)
[2021-08-03 06:34] LABS: Basophils Percent Auto 0.1 % (0.2-1.2); Eosinophils Absolute Auto 0.1 K/mm3 (0-0.3); Hematocrit 32.1 % (42.0-52.0); Hemoglobin 10.9 g/dL (14.0-18.0); Immature Granulocyte Absolute 0.04 K/mm3 (0.00-0.031); Immature Granulocyte Percent A 0.5 % (0-0.5); Lymphocytes Absolute Auto 1.05 K/mm3 (0.9-3.2); Lymphocytes Percent Auto 13.3 % (18.3-44.2); Mean Corpuscular Hemoglobin 31.8 pg (26-34); Mean Corpuscular Volume 93.6 fl (80-100); Mean Platelet Volume 9.9 fl (7.4-10.4); Monocytes Absolute Auto 0.5 K/mm3 (0.1-0.6); Monocytes Percent Auto 6.4 % (2.6-8.5); Neutrophils Absolute Auto 6.2 K/mm3 (1.3-6.7); Neutrophils Percent Auto 78.7 % (45.5-73.1); Platelet Count Result 205 k/mm3 (150-375); Red Blood Count 3.43 M/mm3 (4.6-6.20); Red Cell Distribution Width 14.8 % (11.5-14.5); White Blood Count 7.9 K/mm3 (4.5-10.0)
[2021-08-03] MEDS: TAMSULOSIN HCL 0.4 MG CAPSULE PO (09:16)
[2021-08-03] MEDS: guaiFENesin 12 HR 600 MG TABCR PO ×2 (09:16→21:42)
[2021-08-03] MEDS: predniSONE 10 MG TABLET 20 MG PO (09:16)
[2021-08-03] MEDS: amLODIPine BESYLATE 5 MG TABLET PO (09:16)
[2021-08-03] MEDS: ROFLUMILAST 500 MCG TABLET PO (09:16)
[2021-08-03] MEDS: PSEUDOEPHEDRINE HCL 30 MG TABLET PO ×4 (09:18→21:40)
[2021-08-03] MEDS: LACTATED RINGERS 1,000 ML 50 ML IV CONT (13:41)
--- NOTE | 2021-08-03 17:37 | PM.IMPN ---
Progress Note: A&P Assessment and Plan (1) CAP (community acquired pneumonia): Code(s): J18.9 - Pneumonia, unspecified organism Status: Acute Assessment and Plan: Patient was placed on vancomycin and cefepime for healthcare associated pneumonia. Blood and sputum culture are pending. Will also check for COVID-19 in. Continue with inhalers. 08/03/2021 patient states is feeling little better compared to when he arrived not a short of breath, COVID test is pending, patient states 2 weeks ago he got his 1st shot of COVID vaccination and since then his symptoms started, it has history of severe COPD and still smokes, patient being treated with methylprednisone, duo-neb, chest x-ray shows infiltrate suspicious healthcare associated pneumonia as patient was recently in the hospitalized, patient is treated cefepime, and vancomycin will continue to monitor will follow-up on COVID-19 test, currently patient is isolated (2) Chronic respiratory failure with hypoxia and hypercapnia: Code(s): J96.11 - Chronic respiratory failure with hypoxia; J96.12 - Chronic respiratory failure with hypercapnia Status: Chronic Assessment and Plan: The patient is on oxygen at 4 to have L at home. The patient tells me that he quit smoking about 6 days ago. The patient will need to see a plant custodian for PFTs outpatient. (3) COPD (chronic obstructive pulmonary disease): Code(s): J44.9 - Chronic obstructive pulmonary disease, unspecified Status: Chronic Assessment and Plan: Continue with patient's inhalers and his prednisone taper. He is on Daliresp as well. (4) Tobacco abuse: Code(s): Z72.0 - Tobacco use Status: Chronic Assessment and Plan: Patient stated that he quit smoking approximately 5 her 60s ago. He does not want any nicotine patch or Wellbutrin at this time. Please reinforce smoking cessation. (5) Hypertension: Code(s): I10 - Essential (primary) hypertension Status: Chronic Assessment and Plan: Continue with patient's Norvasc. (6) Benign prostate hyperplasia: Code(s): N40.0 - Benign prostatic hyperplasia without lower urinary tract symptoms Status: Chronic Assessment and Plan: Continue with tamsulosin Additional Plan The patient has a petechial rash to bilateral elbows. Patient's platelets are within normal limits. I did not anticoagulate the patient at this time due to his petechiae. Unsure of the cause of his petechiae chest on his elbows. The patient has been prednisone but is not on any anticoagulation at this time. Nor does he have any liver disease. Will do liver function tests in the a.m.. Subjective Date/time seen: 08/03/21 17:37 this is a 76-year-old male patient who was recently discharged from here on 07/21/2021. He has a history of COPD and tobacco use. The patient wears chronic oxygen at home and is typically on about 4.5 L per nasal cannula. The patient did complete his dose of Levaquin that he was taking at home. His is at the bedside and answering questions for him. The stated that she has been monitoring his pulse ox and that he has required more oxygen. The patient received a COVID vaccine approximately 2 weeks ago. The patient does me that he quit smoking almost a week ago. However the was instructed to bring the patient to the emergency room for that his primary care doctor due to increased demand of oxygen levels. The patient is still on a steroid taper however his white count was normal today where his when he was discharged was 10.7 and previously was 15.8. The patient was swabbed for COVID-19 in the emergency room. The patient does not have a plant custodian he sees his primary care doctor for the COPD. The patient stated that he does use his nebulizers at home and takes his Daliresp. He also stated that he has been taking a prednisone taper as well he has been taking that religiously. Chest x-ray was
[2021-08-03 17:50] LABS: SARS-CoV-2 RNA PCR Negative
[2021-08-03] MEDS: methylPREDNISolone SOD SUCC 125 MG VIAL 60 MG IV PUSH (21:43)
[2021-08-04] VITALS (14 sets, daily range): BP systolic 127–142; BP diastolic 54–66; PULSE 65–80; RESP 18–22; TEMP 36.1–36.3; O2SAT 90–95
[2021-08-04] MEDS: IPRATROPIUM BR 0.02% INH SOLN 0.5 MG/2.5 ML VIAL INHALATION ×4 (02:37→20:27)
[2021-08-04] MEDS: methylPREDNISolone SOD SUCC 125 MG VIAL 60 MG IV PUSH ×3 (06:49→20:13)
[2021-08-04] MEDS: LACTATED RINGERS 1,000 ML 50 ML IV CONT (06:49)
--- NOTE | 2021-08-04 07:35 | PCNSR ---
On 08/04/21, the student,Arleen Anaya, provided care and completed [facility] documentation on this patient. I have reviewed the student's documentation and agree with the findings.
[2021-08-04 08:34] LABS: Vancomycin Trough 9.6 ug/mL (10.0-20.0)
[2021-08-04] MEDS: amLODIPine BESYLATE 5 MG TABLET PO (09:26)
[2021-08-04] MEDS: TAMSULOSIN HCL 0.4 MG CAPSULE PO (09:26)
[2021-08-04] MEDS: guaiFENesin 12 HR 600 MG TABCR PO ×2 (09:26→20:12)
[2021-08-04] MEDS: ROFLUMILAST 500 MCG TABLET PO (09:26)
[2021-08-04] MEDS: PSEUDOEPHEDRINE HCL 30 MG TABLET PO ×4 (09:30→20:13)
--- NOTE | 2021-08-04 12:05 | PCNFU ---
Nutrition Follow-Up Complete: Increased nutrient needs related to COPD as evidenced by BMI of 18.1 and generalized weakness. Goal: Patient to meet estimated nutritional needs. Patient progressing towards goal. No new goal at this time. Pt current nutrition is a heart healthy diet. Last recorded weight is 64.5 kg. Recommend re-weighing pt. prior to discharge. Bowel Motility: +BM 08/13/2021 Labs Reviewed: No new labs as of 08/04/2021 Meds Noted: Albuterol, Norvasc, Atrovent neb, Prednisone, Flomax, Vancomycin Skin: No skin breakdown at this time. WNL. Additional Notes: Checked in with pt. to evaluate nutritional progress. Pt. is currently receiving ensure compact once a day providing an additional 220 calories and 9 grams of protein. Pt. wants to increase supplement to TID. He states he has a good appetite but is only consuming on average 17.5% of meals. Family plans to bring snacks in that pt. enjoys to increase his intake. Monitor patient's labs, medications, weight, and oral intake every 3 days.
--- NOTE | 2021-08-04 13:26 | PM.IMPN ---
Progress Note: A&P Assessment and Plan (1) CAP (community acquired pneumonia): Code(s): J18.9 - Pneumonia, unspecified organism Status: Acute Assessment and Plan: Patient was placed on vancomycin and cefepime for healthcare associated pneumonia. Blood and sputum culture are pending. Will also check for COVID-19 in. Continue with inhalers. 08/03/2021 Interval history: patient states is feeling little better compared to when he arrived not a short of breath, COVID test is pending, patient states 2 weeks ago he got his 1st shot of COVID vaccination and since then his symptoms started, it has history of severe COPD and still smokes, patient being treated with methylprednisone, duo-neb, chest x-ray shows infiltrate suspicious healthcare associated pneumonia as patient was recently in the hospitalized, patient is treated cefepime, and vancomycin will continue to monitor will follow-up on COVID-19 test, currently patient is isolated 08/04/2021 Interval history patient COVID test is negative is off isolation, patient is feeling much better compared to when he arrived most likely patient has exacerbation of COPD will continue Solu-Medrol, updraft will continue to monitor, is also concern patient has healthcare associated pneumonia being treated with cefepime and vancomycin, so far blood culture has no growth, will continue to monitor will have a PT OT evaluate the patient further recommendation to follow, his is present in the answered all her questions. (2) Chronic respiratory failure with hypoxia and hypercapnia: Code(s): J96.11 - Chronic respiratory failure with hypoxia; J96.12 - Chronic respiratory failure with hypercapnia Status: Chronic Assessment and Plan: The patient is on oxygen at 4 to have L at home. The patient tells me that he quit smoking about 6 days ago. The patient will need to see a ase certified technician for PFTs outpatient. (3) COPD (chronic obstructive pulmonary disease): Code(s): J44.9 - Chronic obstructive pulmonary disease, unspecified Status: Chronic Assessment and Plan: Continue with patient's inhalers and his prednisone taper. He is on Daliresp as well. (4) Tobacco abuse: Code(s): Z72.0 - Tobacco use Status: Chronic Assessment and Plan: Patient stated that he quit smoking approximately 5 her 60s ago. He does not want any nicotine patch or Wellbutrin at this time. Please reinforce smoking cessation. (5) Hypertension: Code(s): I10 - Essential (primary) hypertension Status: Chronic Assessment and Plan: Continue with patient's Norvasc. (6) Benign prostate hyperplasia: Code(s): N40.0 - Benign prostatic hyperplasia without lower urinary tract symptoms Status: Chronic Assessment and Plan: Continue with tamsulosin Additional Plan The patient has a petechial rash to bilateral elbows. Patient's platelets are within normal limits. I did not anticoagulate the patient at this time due to his petechiae. Unsure of the cause of his petechiae chest on his elbows. The patient has been prednisone but is not on any anticoagulation at this time. Nor does he have any liver disease. Will do liver function tests in the a.m.. Subjective Date/time seen: 08/04/21 13:26 08/03/2021 Interval history: patient states is feeling little better compared to when he arrived not a short of breath, COVID test is pending, patient states 2 weeks ago he got his 1st shot of COVID vaccination and since then his symptoms started, it has history of severe COPD and still smokes, patient being treated with methylprednisone, duo-neb, chest x-ray shows infiltrate suspicious healthcare associated pneumonia as patient was recently in the hospitalized, patient is treated cefepime, and vancomycin will continue to monitor will follow-up on COVID-19 test, currently patient is isolated 08/04/2021 Interval history patient COVID test is negative is off isolati
[2021-08-04] MEDS: MELATONIN 5 MG TABLET PO (22:07)
[2021-08-05] VITALS (14 sets, daily range): BP systolic 141–157; BP diastolic 61–62; PULSE 64–74; RESP 16–24; TEMP 35.9–36.4; O2SAT 90–98
[2021-08-05] MEDS: IPRATROPIUM BR 0.02% INH SOLN 0.5 MG/2.5 ML VIAL INHALATION ×4 (01:52→20:22)
[2021-08-05] MEDS: LACTATED RINGERS 1,000 ML 50 ML IV CONT (06:10)
[2021-08-05] MEDS: methylPREDNISolone SOD SUCC 125 MG VIAL 60 MG IV PUSH ×3 (06:12→20:59)
[2021-08-05] MEDS: ROFLUMILAST 500 MCG TABLET PO (09:08)
[2021-08-05] MEDS: TAMSULOSIN HCL 0.4 MG CAPSULE PO (09:08)
[2021-08-05] MEDS: amLODIPine BESYLATE 5 MG TABLET PO (09:08)
[2021-08-05] MEDS: PSEUDOEPHEDRINE HCL 30 MG TABLET PO ×4 (09:08→20:59)
[2021-08-05] MEDS: guaiFENesin 12 HR 600 MG TABCR PO ×2 (09:08→21:00)
--- NOTE | 2021-08-05 12:00 | PM.IMPN ---
Progress Note: A&P Assessment and Plan (1) CAP (community acquired pneumonia): Code(s): J18.9 - Pneumonia, unspecified organism Status: Acute Assessment and Plan: Patient was placed on vancomycin and cefepime for healthcare associated pneumonia. Blood and sputum culture are pending. Will also check for COVID-19 in. Continue with inhalers. 08/03/2021 Interval history: patient states is feeling little better compared to when he arrived not a short of breath, COVID test is pending, patient states 2 weeks ago he got his 1st shot of COVID vaccination and since then his symptoms started, it has history of severe COPD and still smokes, patient being treated with methylprednisone, duo-neb, chest x-ray shows infiltrate suspicious healthcare associated pneumonia as patient was recently in the hospitalized, patient is treated cefepime, and vancomycin will continue to monitor will follow-up on COVID-19 test, currently patient is isolated 08/04/2021 Interval history patient COVID test is negative is off isolation, patient is feeling much better compared to when he arrived most likely patient has exacerbation of COPD will continue Solu-Medrol, updraft will continue to monitor, is also concern patient has healthcare associated pneumonia being treated with cefepime and vancomycin, so far blood culture has no growth, will continue to monitor will have a PT OT evaluate the patient further recommendation to follow, his is present in the answered all her questions. 08/05/2021Interval history patient with severe COPD now being treated for exacerbation of COPD, patient remains clinically stable states feeling much better compared to when he arrived not a short of breath however still requiring L of oxygen per nasal cannula, will continue present management repeat chest x-ray and further recommendation to follow. (2) Chronic respiratory failure with hypoxia and hypercapnia: Code(s): J96.11 - Chronic respiratory failure with hypoxia; J96.12 - Chronic respiratory failure with hypercapnia Status: Chronic Assessment and Plan: The patient is on oxygen at 4 to have L at home. The patient tells me that he quit smoking about 6 days ago. The patient will need to see a advertising solicitor for PFTs outpatient. (3) COPD (chronic obstructive pulmonary disease): Code(s): J44.9 - Chronic obstructive pulmonary disease, unspecified Status: Chronic Assessment and Plan: Continue with patient's inhalers and his prednisone taper. He is on Daliresp as well. (4) Tobacco abuse: Code(s): Z72.0 - Tobacco use Status: Chronic Assessment and Plan: Patient stated that he quit smoking approximately 5 her 60s ago. He does not want any nicotine patch or Wellbutrin at this time. Please reinforce smoking cessation. (5) Hypertension: Code(s): I10 - Essential (primary) hypertension Status: Chronic Assessment and Plan: Continue with patient's Norvasc. (6) Benign prostate hyperplasia: Code(s): N40.0 - Benign prostatic hyperplasia without lower urinary tract symptoms Status: Chronic Assessment and Plan: Continue with tamsulosin Additional Plan The patient has a petechial rash to bilateral elbows. Patient's platelets are within normal limits. I did not anticoagulate the patient at this time due to his petechiae. Unsure of the cause of his petechiae chest on his elbows. The patient has been prednisone but is not on any anticoagulation at this time. Nor does he have any liver disease. Will do liver function tests in the a.m.. Subjective Date/time seen: 08/05/21 12:00 08/03/2021 Interval history: patient states is feeling little better compared to when he arrived not a short of breath, COVID test is pending, patient states 2 weeks ago he got his 1st shot of COVID vaccination and since then his symptoms started, it has history of severe COPD and still smokes, patient being treated wi
--- NOTE | 2021-08-05 13:51 | PCOTNOTE ---
Attempted to see Pt 2x today for occupation therapy tx, however, at 1st attempt pt declined stating increased fatigue from having just completed physical therapy and at 2nd attempt pt was getting prepared to be taken for chest xray. Will attempt tomorrow per POC duration/frequency.
[2021-08-05] MEDS: NICOTINE (*PBKC) 21 MG PATCH 1 PATCH TRANSDERM (18:55)
[2021-08-05 20:29] LABS: Vancomycin Trough 15.7 ug/mL (10.0-20.0)
[2021-08-05] MEDS: MELATONIN 5 MG TABLET PO (21:05)
[2021-08-06] VITALS (14 sets, daily range): BP systolic 138–152; BP diastolic 57–66; PULSE 64–77; RESP 18–24; TEMP 36.2–36.3; O2SAT 91–95
[2021-08-06] MEDS: IPRATROPIUM BR 0.02% INH SOLN 0.5 MG/2.5 ML VIAL INHALATION ×4 (01:58→20:40)
[2021-08-06] MEDS: LACTATED RINGERS 1,000 ML 50 ML IV CONT (06:25)
[2021-08-06] MEDS: methylPREDNISolone SOD SUCC 125 MG VIAL 60 MG IV PUSH ×3 (06:26→22:19)
[2021-08-06] MEDS: amLODIPine BESYLATE 5 MG TABLET PO (08:15)
[2021-08-06] MEDS: guaiFENesin 12 HR 600 MG TABCR PO ×2 (08:17→20:15)
[2021-08-06] MEDS: NICOTINE (*PBKC) 21 MG PATCH 1 PATCH TRANSDERM (08:17)
[2021-08-06] MEDS: ROFLUMILAST 500 MCG TABLET PO (08:18)
[2021-08-06] MEDS: TAMSULOSIN HCL 0.4 MG CAPSULE PO (08:18)
[2021-08-06 09:12] LABS: Hematocrit 30.8 % (42.0-52.0); Hemoglobin 10.6 g/dL (14.0-18.0); Mean Corpuscular HGB Conc 34.4 g/dl (32-36); Mean Corpuscular Hemoglobin 31.8 pg (26-34); Mean Corpuscular Volume 92.5 fl (80-100); Mean Platelet Volume 9.7 fl (7.4-10.4); Platelet Count Result 243 k/mm3 (150-375); Red Blood Count 3.33 M/mm3 (4.6-6.20); Red Cell Distribution Width 14.6 % (11.5-14.5); White Blood Count 10.8 K/mm3 (4.5-10.0)
[2021-08-06 09:24] LABS: Anion Gap 1 mmol/L (8-16); Blood Urea Nitrogen 28 mg/dL (9-20); Calcium 8.7 mg/dL (8.4-10.2); Carbon Dioxide 28 mmol/L (22-30); Chloride 101 mmol/L (98-107); Estimated CRCL calculation 79 ml/min; Estimated Glomerular Filt Rate > 60; Glucose 219 mg/dL (65-110); Magnesium 2.2 mg/dL (1.6-2.3); Potassium 4.2 mmol/L (3.4-5.0); Sodium 130 mmol/L (137-145)
--- NOTE | 2021-08-06 11:37 | PM.IMPN ---
Progress Note: A&P Assessment and Plan (1) CAP (community acquired pneumonia): Code(s): J18.9 - Pneumonia, unspecified organism Status: Acute Assessment and Plan: Patient was placed on vancomycin and cefepime for healthcare associated pneumonia. Blood and sputum culture are pending. Will also check for COVID-19 in. Continue with inhalers. 08/03/2021 Interval history: patient states is feeling little better compared to when he arrived not a short of breath, COVID test is pending, patient states 2 weeks ago he got his 1st shot of COVID vaccination and since then his symptoms started, it has history of severe COPD and still smokes, patient being treated with methylprednisone, duo-neb, chest x-ray shows infiltrate suspicious healthcare associated pneumonia as patient was recently in the hospitalized, patient is treated cefepime, and vancomycin will continue to monitor will follow-up on COVID-19 test, currently patient is isolated 08/04/2021 Interval history patient COVID test is negative is off isolation, patient is feeling much better compared to when he arrived most likely patient has exacerbation of COPD will continue Solu-Medrol, updraft will continue to monitor, is also concern patient has healthcare associated pneumonia being treated with cefepime and vancomycin, so far blood culture has no growth, will continue to monitor will have a PT OT evaluate the patient further recommendation to follow, his is present in the answered all her questions. 08/05/2021Interval history patient with severe COPD now being treated for exacerbation of COPD, patient remains clinically stable states feeling much better compared to when he arrived not a short of breath however still requiring L of oxygen per nasal cannula, will continue present management repeat chest x-ray and further recommendation to follow. (2) Chronic respiratory failure with hypoxia and hypercapnia: Code(s): J96.11 - Chronic respiratory failure with hypoxia; J96.12 - Chronic respiratory failure with hypercapnia Status: Chronic Assessment and Plan: The patient is on oxygen at 4 to have L at home. The patient tells me that he quit smoking about 6 days ago. The patient will need to see a account resolution specialist for PFTs outpatient. (3) COPD (chronic obstructive pulmonary disease): Code(s): J44.9 - Chronic obstructive pulmonary disease, unspecified Status: Chronic Assessment and Plan: Continue with patient's inhalers and his prednisone taper. He is on Daliresp as well. (4) Tobacco abuse: Code(s): Z72.0 - Tobacco use Status: Chronic Assessment and Plan: Patient stated that he quit smoking approximately 5 her 60s ago. He does not want any nicotine patch or Wellbutrin at this time. Please reinforce smoking cessation. (5) Hypertension: Code(s): I10 - Essential (primary) hypertension Status: Chronic Assessment and Plan: Continue with patient's Norvasc. (6) Benign prostate hyperplasia: Code(s): N40.0 - Benign prostatic hyperplasia without lower urinary tract symptoms Status: Chronic Assessment and Plan: Continue with tamsulosin Subjective Date/time seen: 08/06/21 11:37 08/03/2021 Interval history: patient states is feeling little better compared to when he arrived not a short of breath, COVID test is pending, patient states 2 weeks ago he got his 1st shot of COVID vaccination and since then his symptoms started, it has history of severe COPD and still smokes, patient being treated with methylprednisone, duo-neb, chest x-ray shows infiltrate suspicious healthcare associated pneumonia as patient was recently in the hospitalized, patient is treated cefepime, and vancomycin will continue to monitor will follow-up on COVID-19 test, currently patient is isolated 08/04/2021 Interval history patient COVID test is negative is off isolation, patient is feeling much better compared to when
[2021-08-06] MEDS: PSEUDOEPHEDRINE HCL 30 MG TABLET PO ×2 (17:26→20:15)
[2021-08-06] MEDS: MELATONIN 5 MG TABLET PO (20:15)
[2021-08-07] VITALS (14 sets, daily range): BP systolic 173; BP diastolic 65; PULSE 64–67; RESP 20; TEMP 36.3; O2SAT 82–95
[2021-08-07] MEDS: IPRATROPIUM BR 0.02% INH SOLN 0.5 MG/2.5 ML VIAL INHALATION ×2 (01:57→08:56)
--- NOTE | 2021-08-07 07:41 | PCNSR ---
On 08/04/21, the student, Arleen Anaya, provided care and completed [facility] documentation on this patient. I have reviewed the student's documentation and agree with the findings.
[2021-08-07 07:52] LABS: Hemoglobin 10.8 g/dL (14.0-18.0); Mean Corpuscular HGB Conc 33.8 g/dl (32-36); Mean Corpuscular Hemoglobin 32.5 pg (26-34); Mean Corpuscular Volume 96.4 fl (80-100); Mean Platelet Volume 9.7 fl (7.4-10.4); Platelet Count Result 207 k/mm3 (150-375); Red Blood Count 3.32 M/mm3 (4.6-6.20); Red Cell Distribution Width 14.6 % (11.5-14.5); White Blood Count 8.7 K/mm3 (4.5-10.0)
[2021-08-07 08:05] LABS: Anion Gap 1 mmol/L (8-16); Blood Urea Nitrogen 29 mg/dL (9-20); Calcium 8.8 mg/dL (8.4-10.2); Carbon Dioxide 29 mmol/L (22-30); Chloride 101 mmol/L (98-107); Estimated CRCL calculation 93 ml/min; Estimated Glomerular Filt Rate > 60; Glucose 130 mg/dL (65-110); Magnesium 2.2 mg/dL (1.6-2.3); Potassium 4.4 mmol/L (3.4-5.0); Sodium 131 mmol/L (137-145)
[2021-08-07] MEDS: NICOTINE (*PBKC) 21 MG PATCH 1 PATCH TRANSDERM (08:36)
[2021-08-07] MEDS: ROFLUMILAST 500 MCG TABLET PO (08:36)
[2021-08-07] MEDS: PSEUDOEPHEDRINE HCL 30 MG TABLET PO (08:36)
[2021-08-07] MEDS: guaiFENesin 12 HR 600 MG TABCR PO (08:37)
[2021-08-07] MEDS: amLODIPine BESYLATE 5 MG TABLET PO (08:37)
[2021-08-07] MEDS: TAMSULOSIN HCL 0.4 MG CAPSULE PO (08:37)
[2021-08-07 08:48] LABS: Vancomycin Trough 16.8 ug/mL (10.0-20.0)
--- NOTE | 2021-08-07 09:32 | PM.DS ---
DS: Admitting Diagnosis Discharge Date 08/07/2021 Admitting Diagnosis shortness of breath DS: Discharge Diagnosis Discharge Diagnosis (1) CAP (community acquired pneumonia): Code(s): J18.9 - Pneumonia, unspecified organism Status: Acute Assessment and Plan: Patient was placed on vancomycin and cefepime for healthcare associated pneumonia. Blood and sputum culture are pending. Will also check for COVID-19 in. Continue with inhalers. 08/03/2021 Interval history: patient states is feeling little better compared to when he arrived not a short of breath, COVID test is pending, patient states 2 weeks ago he got his 1st shot of COVID vaccination and since then his symptoms started, it has history of severe COPD and still smokes, patient being treated with methylprednisone, duo-neb, chest x-ray shows infiltrate suspicious healthcare associated pneumonia as patient was recently in the hospitalized, patient is treated cefepime, and vancomycin will continue to monitor will follow-up on COVID-19 test, currently patient is isolated 08/04/2021 Interval history patient COVID test is negative is off isolation, patient is feeling much better compared to when he arrived most likely patient has exacerbation of COPD will continue Solu-Medrol, updraft will continue to monitor, is also concern patient has healthcare associated pneumonia being treated with cefepime and vancomycin, so far blood culture has no growth, will continue to monitor will have a PT OT evaluate the patient further recommendation to follow, his is present in the answered all her questions. 08/05/2021Interval history patient with severe COPD now being treated for exacerbation of COPD, patient remains clinically stable states feeling much better compared to when he arrived not a short of breath however still requiring L of oxygen per nasal cannula, will continue present management repeat chest x-ray and further recommendation to follow. today patient remains clinically stable is feeling much better compared to when he arrived, O2 showed patient is requiring 5 L at rest and 6 L with exertion which is 1 L higher than is normal oxygen requirement, will discharge the patient home on tapering dose of prednisone, patient will follow-up his primary care as soon as possible to check his oxygen. (2) Chronic respiratory failure with hypoxia and hypercapnia: Code(s): J96.11 - Chronic respiratory failure with hypoxia; J96.12 - Chronic respiratory failure with hypercapnia Status: Chronic Assessment and Plan: The patient is on oxygen at 4 to have L at home. The patient tells me that he quit smoking about 6 days ago. The patient will need to see a handbell choir director for PFTs outpatient. (3) COPD (chronic obstructive pulmonary disease): Code(s): J44.9 - Chronic obstructive pulmonary disease, unspecified Status: Chronic Assessment and Plan: Continue with patient's inhalers and his prednisone taper. He is on Daliresp as well. (4) Tobacco abuse: Code(s): Z72.0 - Tobacco use Status: Chronic Assessment and Plan: Patient stated that he quit smoking approximately 5 her 60s ago. He does not want any nicotine patch or Wellbutrin at this time. Please reinforce smoking cessation. (5) Hypertension: Code(s): I10 - Essential (primary) hypertension Status: Chronic Assessment and Plan: Continue with patient's Norvasc. (6) Benign prostate hyperplasia: Code(s): N40.0 - Benign prostatic hyperplasia without lower urinary tract symptoms Status: Chronic Assessment and Plan: Continue with tamsulosin DS: Summary Hospital Course Hospital Course: 08/03/2021 Interval history: patient states is feeling little better compared to when he arrived not a short of breath, COVID test is pending, patient states 2 weeks ago he got his 1st shot of COVID vaccination and since then his symptoms started, it has history of
--- NOTE | 2021-08-07 10:54 | PCNFU ---
Nutrition Follow-Up Complete: Increased nutrient needs related to COPD as evidenced by BMI of 18.1 and generalized weakness. Goal: Patient to meet estimated nutritional needs. Patient is progressing towards goal. No new goal at this time. Pt current nutrition is a heart healthy diet. Last recorded weight is 64.5 kg. Recommend re-weighing pt. prior to discharge. Bowel Motility: + BM 08/04/2021 Labs Reviewed: Hgb 10.8, Hct 32.0, Na 131, BUN 29, Cr 0.5, Glu 130 Meds Noted: Albuterol, Norvasc, Atrovent neb, Prednisone, Flomax, Vancomycin Skin: No skin breakdown at this time. WNL. Additional Notes: Checked in with pt.. Patient reports having a really good' appetite consuming on average 85% of meals ordered. He is receiving ensure TID providing an additional 220 calories and 9 grams of protein and loves it. Once discharged he is going to drink those at home with meals and as snacks to increase overall nutrient intake. Monitor patient's labs, medications, weight, and oral intake every 7 days.
--- NOTE | 2021-08-07 12:17 | PCRCNOTE ---
HOME O2 EVAL COMPLETED. HAS O2 WITH [facility]. WILL CALL AND ENSURE ALL HOME EQUIPMENT IS IN GOOD WORKING ORDER. WILL BRING TANK FROM HOME FOR TRANSPORT. PT WILL NEED MORE TANKS AND A CHECK ON CONCENTRATOR, STATED YELLOW LIGHT COMES ON.
--- NOTE | 2021-08-07 13:36 | PCPTNOTE ---
Attempted to see patient for Physical Therapy this AM at 0935. Patient requested for therapist to come back later after his home O2 evaluation was completed. Attempted to see patient at 1335 and RN stated that she was printing off discharge paper work at that time. RN stated that patient did not need to be seen for Physical Therapy due to him being discharged.
--- NOTE | 2021-08-07 13:39 | PCNSR ---
On 08/07/21, the student, Arleen Anaya, provided care and completed [facility] documentation on this patient. I have reviewed the student's documentation and agree with the findings.
--- NOTE | 2021-08-09 07:53 | HOMEO2EVAL ---
Evaluation was performed at [facility]
--- NOTE | 2021-08-09 07:55 | HOMEO2EVAL ---
Evaluation was performed at [facility]
== END 2021-08-07 14:20 | disposition home health service (06) | DRG 194 ==
LOC: ANHED 15:24 → ANH3MEDSUR 16:15
PROVIDERS: Nurse Practitioner; Admitting Provider Internal Medicine; Emergency Provider Emergency Medicine; PCP Family Medicine; Visit Provider Family Medicine
DX: J18.9 Pneumonia, unspecified organism (principal); J44.0 Chronic obstructive pulmonary disease with (acute) lower respiratory infection; J96.11 Chronic respiratory failure with hypoxia; J96.12 Chronic respiratory failure with hypercapnia; J44.1 Chronic obstructive pulmonary disease with (acute) exacerbation; Y95 Nosocomial condition; Z20.822 Contact with and (suspected) exposure to COVID-19; Z99.81 Dependence on supplemental oxygen; F17.210 Nicotine dependence, cigarettes, uncomplicated; R23.3 Spontaneous ecchymoses; Z79.899 Other long term (current) drug therapy
CPT/HCPCS: 36415; 71046; 71275; 80048; 80053; 80202; 83605; 83615; 83735; 83880; 84443; 84484; 85025; 85027; 87040; 87070; 87205; 93005; 93970; 94618; 94640; 96361; 96365; 96367; 96376; 97110; 97161; 97166; 97530; 97535; 99285; A9270; C9803; G0378; J0692; J2930; J3370; J7120; J7512; Q9967; U0003; U0005

== ENCOUNTER 2021-08-12 05:28 | Emergency (ER) | payer MEDICARE, OTHER, SELFPAY ==
[2021-08-12 05:32] VITALS: BP 141/86; PULSE 87; RESP 20; TEMP 35.9; O2SAT 95
[2021-08-12 05:52] LABS: Basophils Percent Auto 0.1 % (0.2-1.2); Eosinophils Percent Auto 0.1 % (0-4.4); Immature Granulocyte Absolute 0.04 K/mm3 (0.00-0.031); Immature Granulocyte Percent A 0.5 % (0-0.5); Lymphocytes Percent Auto 8.5 % (18.3-44.2); Mean Corpuscular HGB Conc 33.3 g/dl (32-36); Mean Corpuscular Hemoglobin 32.4 pg (26-34); Mean Corpuscular Volume 97.3 fl (80-100); Mean Platelet Volume 9.7 fl (7.4-10.4); Monocytes Absolute Auto 0.4 K/mm3 (0.1-0.6); Neutrophils Absolute Auto 7.1 K/mm3 (1.3-6.7); Neutrophils Percent Auto 85.8 % (45.5-73.1); Platelet Count Result 221 k/mm3 (150-375); Red Cell Distribution Width 15.2 % (11.5-14.5); White Blood Count 8.3 K/mm3 (4.5-10.0)
[2021-08-12 06:04] LABS: Alanine Aminotransferase 54 U/L (4-50); Albumin Level 3.5 g/dL (3.5-5.1); Alkaline Phosphatase 87 U/L (38-126); Anion Gap 1 mmol/L (8-16); Aspartate Amino Transferase 33 U/L (17-59); Bilirubin,Total 0.9 mg/dL (0.2-1.3); Blood Urea Nitrogen 23 mg/dL (9-20); Calcium 9.2 mg/dL (8.4-10.2); Carbon Dioxide 35 mmol/L (22-30); Chloride 97 mmol/L (98-107); Estimated Glomerular Filt Rate > 60; Glucose 94 mg/dL (65-110); Potassium 4.8 mmol/L (3.4-5.0); Sodium 133 mmol/L (137-145)
--- NOTE | 2021-08-12 06:09 | ED.MALEGU ---
HPI - Male Genitourinary General Chief complaint: Urogenital-Male Stated complaint: nauseated Time Seen by Provider: 08/12/21 05:33 Source: patient History of Present Illness HPI Narrative: Patient presents with difficulty urinating. Reports he has not been able to completely empty his bladder over the past 2 days he was concerned so came to the ER for evaluation. He does report he was recently for breathing problems. He denies any abdominal pain nausea vomiting or diarrhea at the time of my evaluation. Patient is not reporting any change his baseline shortness of breath he is denying any chest pain or fevers Related Data Home Medications Medication Instructions Recorded Confirmed Daliresp 500 mcg PO DAILY 07/19/21 08/02/21 albuterol sulfate 2.5 mg CONTINUOUS NEBULIZATION QID 07/19/21 08/02/21 PRN tamsulosin 0.4 mg PO DAILY 07/19/21 08/02/21 pseudoephedrine-guaifenesin 1 tablet PO BID 08/02/21 08/02/21 [Mucinex D] Allergies Allergy/AdvReac Type Severity Reaction Status Date / Time No Known Allergies Allergy Verified 08/12/21 05:37 Review of Systems Review of Systems: CONSTITUTIONAL: Denies fever, chills, or sweats. EYES: Denies visual changes, redness, or discharge. ENT: Denies rhinorrhea, congestion, sore throat, or otalgia. CARDIOVASCULAR: Denies chest pain, palpitations, or edema. RESPIRATORY: Denies cough or dyspnea. GASTROINTESTINAL: Denies abdominal pain, nausea, vomiting, or diarrhea. GENITOURINARY: Denies dysuria or hematuria. SKIN: Denies rash or itching. MUSCULOSKELETAL: Denies back pain, joint pain, or myalgia. NEUROLOGIC: Denies headache, numbness, dizziness, or weakness. PSYCHIATRIC: Denies anxiety or depression. All systems reviewed & are unremarkable except as noted in HPI and below PMFSH Past Medical History Medical History Benign prostate hyperplasia Chronic respiratory failure with hypoxia and hypercapnia COPD (chronic obstructive pulmonary disease) Hypertension Tobacco abuse Surgical History Surgical History H/O colonoscopy with polypectomy History of total left hip arthroplasty Family History Family History Mother Family history of malignant neoplasm, Onset Age: 75 Father Carcinoma of colon, Onset Age: 75 Patient's father is Social History Social History Social History: The patient stated that he use to smoke 1 and half packs of cigarettes a day. The patient has not smoked in at least the last 5-6 days. He has 5 step children and he lives with his . The patient does have living well with him. 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 He denies any alcohol marijuana or illicit drugs. Code status full code Smoking packs per day: 2 Smoking cigarettes per day: 40.0 Years smoked: 65 Smoking pack-years: 130.00 Smoking status: Former smoker Tobacco type: cigarettes Smoking end date: 08/01/21 Alcohol intake: never Substance use: never Additional living arrangements comments: , daughter and grandchildren Spiritual care concerns: No Exam Narrative: GENERAL: Well-appearing, well-nourished, and in no acute distress. HEAD: Normocephalic, atraumatic. EYES: PERRLA and EOMI. ENT: Nares clear, no rhinorrhea or epistaxis. Mucous membranes moist. NECK: Supple. No masses. No JVD CHEST: Clear to auscultation. No respiratory distress. No wheezes rales or rhonchi HEART: Regular rate and rhythm. No murmur heard. Normal peripheral pulses. ABDOMEN: Soft, nontender, nondistended, normal active bowel sounds. EXTREMITIES: Normal range of motion. No edema. SKIN: Warm, dry, no rash. NEURO: No focal deficits. Alert and oriented x3. PSYCH: Normal mood and affect. Course Reeval
[2021-08-12 06:48] VITALS: BP 169/76; PULSE 71; RESP 18; O2SAT 100
[2021-08-12 06:51] LABS: Add Urine Microscopic? YES; Amorphous Sediment Urine Few; Appearance Urine Cloudy (Clear); Bacteria Urine Trace /hpf; Bilirubin Urine Negative (Negative); Blood Urine Negative (Negative); Color Urine Yellow (Yellow); Glucose Urine UA Negative (Negative); Ketones Urine Negative (Negative); Leukocyte Esterase Ur Negative LEU/UL (Negative); Mucus Urine Rare /lpf; Nitrate Urine Negative (Negative); Protein Urine Negative (Negative); Specific Grav Ur 1.015 (1.001-1.035); Squamous Epithelial Cell Urine Rare /hpf (Few); Urobilinogen Urine Negative mg/dL (<2.0); WBC Urine 0-3 /hpf
--- NOTE | 2021-08-12 08:20 | PC.NURSE ---
leg bag to indwelling coleman. pt instructed on use.
== END 2021-08-12 08:26 | disposition home or self-care (01) ==
PROVIDERS: Emergency Provider Emergency Medicine; PCP Family Medicine
DX: N40.1 Benign prostatic hyperplasia with lower urinary tract symptoms (principal); R33.8 Other retention of urine; J44.9 Chronic obstructive pulmonary disease, unspecified; J96.12 Chronic respiratory failure with hypercapnia; J96.11 Chronic respiratory failure with hypoxia; I10 Essential (primary) hypertension; Z96.642 Presence of left artificial hip joint; Z86.010 Personal history of colon polyps; Z87.891 Personal history of nicotine dependence
CPT/HCPCS: 36415; 51702; 80053; 81001; 85025; 99283

== ENCOUNTER 2021-08-22 15:00 | Inpatient (IN) | payer MEDICARE, OTHER, SELFPAY ==
[2021-08-22] VITALS (54 sets, daily range): BP systolic 114–161; BP diastolic 52–98; PULSE 78–123; RESP 16–44; TEMP 37.4; O2SAT 84–100
--- NOTE | ~2021-08-22 | CT_ITS ---
EXAMINATION: CTA chest PE protocol DATE: 08/25/2021 23:41 INDICATION: Midsternal chest pain. Hypoxia. TECHNIQUE: Computed tomography angiography (CTA) of the chest was performed with 100 mL Omnipaque-350 intravenous contrast timed to evaluate the pulmonary arteries. Coronal maximum intensity projection 3D-reconstructions were created by the technologist. Automated exposure control and iterative reconst ruction technique were employed. The dose-length product was 344.15 mGy-cm. COMPARISON: Chest CT 08/02/2021 FINDINGS: There is severe emphysema. There is scarring in the upper lobes. Again seen is elevation of left hemidiaphragm. There are airspace opacities in the lower lobes. There are groundglass opacities in right middle lobe. These findings are consistent with pneumonia. There are small pleural effusion s. The heart size is normal. There are coronary artery calcifications. No pericardial effusion. There is no pulmonary embolus. There is mild bilateral hilar lymphadenopathy, likely reactive. There is a small volume of ascites. There is mild thoracic spondylosis. There is mild chronic height loss of mul tiple vertebral bodies. IMPRESSION: 1. No pulmonary embolus. 2. Worsening pneumonia involving the lower lobes and right middle lobe. 3. Severe emphysema. 4. Small pleural effusions. 5. Mild bilateral hilar lymphadenopathy, likely reactive. 6. Small volume of ascites. Reviewed, dictated and finalized at location A. PLACER
--- NOTE | ~2021-08-22 | XR_ITS ---
EXAMINATION: XR chest 1V portable INDICATION: COVID pneumonia TECHNIQUE: Portable AP chest at 0820 hours COMPARISON: 08/23/2021 FINDINGS: Patchy airspace opacities of the upper lung zones and right midlung zone have improved. Air space opacities of the lung bases persist with slight worsening. Lucencies in the upper lung zones ar e consistent with pneumonia. Small pleural effusions are present. There is no pneumothorax. The cardi omediastinal silhouette is normal. IMPRESSION: 1. Slightly worsened opacities of the lung bases, consistent with atelectasis versus pneumonia. 2. Emphysema. Reviewed, dictated and finalized at location A. ANESTHESIA NURSE IMPRESSION: 1. Slightly worsened opacities of the lung bases, consistent with atelectasis v ersus pneumonia. 2. Emphysema.
--- NOTE | ~2021-08-22 | XR_ITS ---
EXAMINATION: XR chest 1V portable DATE: 08/23/2021 19:26 INDICATION: Cough. TECHNIQUE: A single frontal view of the chest was obtained. COMPARISON: Chest single view 08/22/2021, chest CT 08/02/2021 FINDINGS: There are lucencies in the lungs, consistent with emphysema. There are airspace opacities a t the lung bases. No pleural effusion or pneumothorax. The heart size is normal. IMPRESSION: 1. Airspace opacities at the lung bases, consistent with atelectasis versus pneumonia. 2. Emphysema. Reviewed, dictated and finalized at location A. E SUPERVISOR IMPRESSION: 1. Airspace opacities at the lung bases, consistent with atelectasis versus pne umonia. 2. Emphysema.
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
--- NOTE | ~2021-08-22 | US_ITS ---
EXAMINATION: US venous doppler [facility] DATE: 08/22/2021 16:14 INDICATION: Lower limb edema. TECHNIQUE: Grayscale ultrasound images without and with compression and Doppler ultrasound images of the bilateral lower extremity veins were obtained. COMPARISON: Ultrasound 07/21/2021 FINDINGS: The visualized portions of right common femoral vein, profunda (deep) femoral vein, femoral vein, pop liteal vein, peroneal veins, posterior tibial veins, and greater saphenous vein outflow are patent. The visualized portions of left common femoral vein, profunda femoral vein, femoral vein, popliteal v ein, peroneal veins, posterior tibial veins, and greater saphenous vein outflow are patent. IMPRESSION: 1. No deep venous thrombosis. Reviewed, dictated and finalized at location A. S AGENT INSURANCE
--- NOTE | ~2021-08-22 | XR_ITS ---
EXAMINATION: XR chest 1V portable EXAM DATE: 08/22/2021 15:20 INDICATION: Shortness of air for 3 days. TECHNIQUE: Portable AP frontal chest x-ray was obtained. Comparison is made to prior examination from 08/05/2021. FINDINGS: There is severe apical emphysema. Biapical scarring. Moderate amount of multisegmental basi lar airspace disease, progression compared to previous examination. Could be atelectasis but also sup erimposed pneumonia or edema possible. Cardiac silhouette is normal in size, however given the emphys ky and suspected COPD, congestive heart failure should be considered. No pneumothorax. There are bon y degenerative changes. IMPRESSION: 1. Progression of multi segmental basilar ill-defined pneumonia or edema. 2. Chronic emphysema, hyperinflation. Reviewed, dictated and finalized at location A. GER SHAREPOINT
--- NOTE | 2021-08-22 15:05 | ECG_ITS ---
Measurements Intervals Etta Rate: 110 P: 81 IA: 127 QRS: 38 QRSD: 161 T: 41 QT: 292 QTc: 396 Interpretive Statements SINUS TACHYCARDIA RIGHT BUNDLE BRANCH BLOCK BASELINE ARTIFACT- I, II, III, AVR, AVL, AVF, V1-V6 ABNORMAL ECG Electronically Signed On 08-22-2021 17:57:16 SYSTEMS INTEGRATION MANAGER by Nicanor Chino D.O.
[2021-08-22 15:24] LABS: Base Excess ABG 5.5 mEq/l (+/-2.0); Carboxyhemoglobin 0.6 % THb (0-2.0); Fractional Inspired Oxygen 42 %; HCO3 ABG 28.5 mEq/l (22.0-26.0); Methemoglobin ABG 0.1 %THb (0-1.5); PCO2 ABG 35.4 mmHg (35.0-45.0); PO2 FiO2 Ratio Arterial Blood 1.07 %; Reduced Hemoglobin 15.4 %THb (0-5.0)
[2021-08-22 15:25] LABS: pH ABG 7.523 (7.350-7.450)
[2021-08-22] MEDS: LORazepam INJ (*CRX) 2 MG/ML VIAL 1 MG IV PUSH (15:25)
[2021-08-22 15:26] LABS: Oxygen Saturation ABG 85.9 % (95.0-100.0); PO2 ABG 44.9 mmHg (80.0-100.0)
--- NOTE | 2021-08-22 15:26 | PC.NURSE ---
medicated with ativan for distress/anxiety while trying bipap. pt on o2 nc at 7 lmp at this time
[2021-08-22 15:27] LABS: Device NASAL CANNULA; Modified Allen's Test Pass; Oxyhemoglobin 83.9 % THb (90.0-100.0); Site Drawn RIGHT RADIAL
[2021-08-22 15:41] LABS: Hematocrit 32.9 % (42.0-52.0); Hemoglobin 10.9 g/dL (14.0-18.0); Mean Corpuscular HGB Conc 33.1 g/dl (32-36); Mean Corpuscular Hemoglobin 32.6 pg (26-34); Mean Corpuscular Volume 98.5 fl (80-100); Mean Platelet Volume 9.2 fl (7.4-10.4); Platelet Count Result 119 k/mm3 (150-375); Red Blood Count 3.34 M/mm3 (4.6-6.20); Red Cell Distribution Width 17.2 % (11.5-14.5)
[2021-08-22 15:52] LABS: Alanine Aminotransferase 43 U/L (4-50); Albumin Level 3.2 g/dL (3.5-5.1); Alkaline Phosphatase 76 U/L (38-126); Anion Gap 6 mmol/L (8-16); Aspartate Amino Transferase 26 U/L (17-59); Bilirubin,Total 1.4 mg/dL (0.2-1.3); Blood Urea Nitrogen 28 mg/dL (9-20); Calcium 8.8 mg/dL (8.4-10.2); Carbon Dioxide 30 mmol/L (22-30); Chloride 98 mmol/L (98-107); Estimated CRCL calculation 85 ml/min; Estimated Glomerular Filt Rate > 60; Glucose 122 mg/dL (65-110); Potassium 3.9 mmol/L (3.4-5.0); Sodium 134 mmol/L (137-145)
[2021-08-22 15:53] LABS: Lactic Acid Reflex 1.4 mmol/L (0.7-2.1)
[2021-08-22 16:00] LABS: NT Pro B Type Natriuretic Pept 1270 pg/mL (5-100)
[2021-08-22 16:07] LABS: Band Neutrophils Percent 13 % (0-6); Lymphocytes Absolute Manual 0.22 K/mm3 (1.1-4.5); Monocytes Absolute Manual 0.33 K/mm3 (0.1-0.90); Monocytes Percent Manual 3 % (3-9); Neutrophils Absolute Manual 10.45 K/mm3 (1.3-6.7); Neutrophils Percent Manual 82 % (46-73); Platelet Estimate Decreased (Adequate); Total Cells Counted 100
[2021-08-22 16:08] LABS: Anisocytosis 2+ (NORMAL)
--- NOTE | 2021-08-22 16:10 | ED.SOB ---
HPI - SOB/Dyspnea General Chief Complaint: Shortness of Breath/Dyspnea Stated Complaint: SOB History of Present Illness HPI Narrative: Patient 68-year-old male who presents ER with shortness of breath. Recently admitted to the hospital with pneumonia. Discharged on 6 L of nasal cannula O2. Currently wearing 7 L of O2 and is hypoxic. Reports he has had increased shortness of breath and cough over the last day. Denies fevers or chills. He also is endorsing new edema to his lower extremities and is concerned about his right more than his left. No chest pain/chest pressure. He was previously treated with cefepime and vancomycin. Related Data Home Medications Medication Instructions Recorded Confirmed Daliresp 500 mcg PO DAILY 07/19/21 08/02/21 albuterol sulfate 2.5 mg CONTINUOUS NEBULIZATION QID 07/19/21 08/02/21 PRN tamsulosin 0.4 mg PO DAILY 07/19/21 08/02/21 pseudoephedrine-guaifenesin 1 tablet PO BID 08/02/21 08/02/21 [Mucinex D] Allergies Allergy/AdvReac Type Severity Reaction Status Date / Time No Known Allergies Allergy Verified 08/22/21 15:07 Review of Systems Review of Systems: All systems reviewed & are unremarkable except as noted in HPI and below Constitutional: Constitutional: Denies chills, Reports fatigue, Denies fever(s) and Reports weakness ENT: Denies nasal congestion and Denies sore throat Cardiovascular: Cardiovascular: Denies chest pain, Denies rapid heart rate and Denies radiating jaw, neck or arm pain Respiratory: Respiratory: Reports cough, Reports dyspnea and Reports wheezing Gastrointestinal: Gastrointestinal: Denies abdominal pain, Denies nausea and Denies vomiting PMF Past Medical History Medical History Benign prostate hyperplasia Chronic respiratory failure with hypoxia and hypercapnia COPD (chronic obstructive pulmonary disease) Hypertension Tobacco abuse Surgical History Surgical History H/O colonoscopy with polypectomy History of total left hip arthroplasty Family History Family History Mother Family history of malignant neoplasm, Onset Age: 75 Father Carcinoma of colon, Onset Age: 75 Patient's father is Social History Social History Social History: The patient stated that he use to smoke 1 and half packs of cigarettes a day. The patient has not smoked in at least the last 5-6 days. He has 5 step children and he lives with his . The patient does have living well with him. 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 He denies any alcohol marijuana or illicit drugs. Code status full code Smoking packs per day: 2 Smoking cigarettes per day: 40.0 Years smoked: 65 Smoking pack-years: 130.00 Smoking status: Former smoker Tobacco type: cigarettes Smoking end date: 08/01/21 Alcohol intake: never Substance use: never Additional living arrangements comments: , daughter and grandchildren Spiritual care concerns: No Exam Narrative: GENERAL: Chronically ill-appearing, well-nourished, and in no acute distress. HEAD: Normocephalic, atraumatic. EYES: PERRL and EOMI. ENT: Mucous membranes moist. CHEST: Diminished and wheezing throughout. Moderate respiratory distress. HEART: Tachycardic and regular. Normal peripheral pulses. ABDOMEN: Soft, nontender, nondistended. EXTREMITIES: Normal range of motion. No edema. SKIN: Warm, dry, no rash. NEURO: Alert and oriented x3. PSYCH: Normal mood and affect. Course Course Emergency Course: Admit to hospitalist service. BiPAP initiated and patient tolerating after being given Ativan. Community-acquired antibiotics ordered. Significant leukocytosis with bands. Also given steroids and inline nebulizer treatment.
[2021-08-22] MEDS: methylPREDNISolone SOD SUCC 125 MG VIAL IV PUSH (16:16)
[2021-08-22] MEDS: ALBUTEROL SULFATE NEB 2.5 MG/0.5 ML INH 15 MG INHALATION (16:30)
[2021-08-22] MEDS: IPRATROPIUM BR 0.02% INH SOLN 0.5 MG/2.5 ML VIAL 1.5 MG INHALATION (16:31)
--- NOTE | 2021-08-22 18:36 | PC.NURSE ---
voicemail to pharmacy requesting that azithromycin be sent to ed
--- NOTE | 2021-08-22 19:32 | PC.NURSE ---
leg bag removed Harper bag place secured to left leg with stat lock
--- NOTE | 2021-08-22 19:46 | PM.IMHP ---
H&P: HPI History of Present Illness Date/Time: 08/22/21 19:46 Chief Complaint: Shortness of breath Narrative: This is a 76-year-old male who presents to the ER with shortness of breath. He was recently discharged from the hospital about 2 weeks ago on oxygen 5-6 L via nasal cannula. He has been having increased shortness of breath and cough over the past few days. No fever or chills. He also reported lower extremity edema but no chest pain or pressure. History is limited as he is currently on a BiPAP he was placed in the ED a most of the history was taken from the medical records. He has underlying history of COPD with chronic respiratory failure on home oxygen. In the ED he was initially in moderate respiratory distress with wheezing throughout and hence we he was placed on a BiPAP. He was given some Ativan for him to tolerate the BiPAP. He was febrile and tachycardic with oxygen saturation 85% on arrival. Patient also verbalized she obtain wanted to be intubated or resuscitated if needed. She was noted to have leukocytosis with WBC count of 11,000 with bandemia mild thrombocytopenia mild anemia which is chronic. Lactic acid was normal. ABG showed respiratory alkalosis with low PO2. Chest x-ray showed progression of multiple segmental basilar ill-defined pneumonia or edema will along with chronic emphysema or hypo for inflation. For his lower extremity edema he also had a venous duplex done which was negative for DVT. He is admitted for further evaluation and management Review of Systems Review of Systems: - CONSTITUTIONAL: Denies weight loss, fever and chills. - HEENT: Denies changes in vision and hearing - RESPIRATORY: Reports SOB and cough. - CV: Denies palpitations and CP. - GI: Denies abdominal pain, nausea, vomiting and diarrhea. - : Denies dysuria and urinary frequency. - MSK: Denies myalgia and joint pain. - SKIN: Denies rash and pruritus. - NEUROLOGICAL: Denies headache and syncope. - PSYCHIATRIC: Denies recent changes in mood. Denies anxiety and depression. All systems reviewed & are unremarkable except as noted in HPI and below Constitutional: Constitutional: Reports fatigue and Reports weakness Neurologic: Reports weakness Endocrine: Endocrine: Reports fatigue PMFSH Past Medical History Medical History Benign prostate hyperplasia Chronic respiratory failure with hypoxia and hypercapnia COPD (chronic obstructive pulmonary disease) Hypertension Tobacco abuse Surgical History Surgical History H/O colonoscopy with polypectomy History of total left hip arthroplasty Family History Family History Mother Family history of malignant neoplasm, Onset Age: 75 Father Carcinoma of colon, Onset Age: 75 Patient's father is Social History Social History Social History: The patient stated that he use to smoke 1 and half packs of cigarettes a day. The patient has not smoked in at least the last 5-6 days. He has 5 step children and he lives with his . The patient does have living well with him. 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 He denies any alcohol marijuana or illicit drugs. Code status full code Smoking packs per day: 2 Smoking cigarettes per day: 40.0 Years smoked: 65 Smoking pack-years: 130.00 Smoking status: Former smoker Tobacco type: cigarettes Smoking end date: 08/01/21 Alcohol intake: never Substance use: never Additional living arrangements comments: , daughter and grandchildren Spiritual care concerns: No Meds Home Medications and Allergies Home Medications Medication Instructions Recorded Confirmed Type Daliresp 500 mcg PO DAILY 07/19/21 08/02/21 History
--- NOTE | 2021-08-22 20:37 | PC.NURSE ---
This RN to bedside to assess alarming BiPAP. Patient found to have BiPAP pulled off face and holding pulse ox. Patient oriented to importance of keeping BiPAP and pulse ox applied properly. Patient agreeable.
--- NOTE | 2021-08-22 23:38 | PC.NURSE ---
assisted up in bed
[2021-08-23] VITALS (32 sets, daily range): BP systolic 111–145; BP diastolic 59–76; PULSE 74–132; RESP 17–35; TEMP 36.9; O2SAT 92–100; BMI 18.1
[2021-08-23] MEDS: methylPREDNISolone SOD SUCC 125 MG VIAL 60 MG IV PUSH ×4 (01:30→18:45)
[2021-08-23] MEDS: FUROSEMIDE INJ 40 MG/4 ML VIAL 20 MG IV PUSH (01:32)
[2021-08-23] MEDS: IPRATROPIUM BR 0.02% INH SOLN 0.5 MG/2.5 ML VIAL INHALATION (04:11)
[2021-08-23] MEDS: ALBUTEROL SULFATE NEB 2.5 MG/0.5 ML INH INHALATION (04:11)
--- NOTE | 2021-08-23 06:41 | PC.NURSE ---
spoke with dr fabiola butler to dc bipap and put patient on 5L nc
--- NOTE | 2021-08-23 06:47 | PC.NURSE ---
bipap dcd O2 5L NC Spo2 95%
--- NOTE | 2021-08-23 07:42 | PC.NURSE ---
Pt called and she was updated on patient status.
--- NOTE | 2021-08-23 10:00 | PC.NURSE ---
Pts called and stated someone in the household tested positive for COVID-19. updated and covid swab ordered for pt.
[2021-08-23] MEDS: ALBUTEROL SULFATE (*SP) AEROSOL 1 PUFF 2 PUFF INHALATION ×3 (10:27→15:58)
--- NOTE | 2021-08-23 11:41 | PC.NURSE ---
ordered lunch tray for patient
--- NOTE | 2021-08-23 15:00 | PM.IMPN ---
Progress Note: A&P Assessment and Plan (1) CAP (community acquired pneumonia): Code(s): J18.9 - Pneumonia, unspecified organism Status: Acute Assessment and Plan: Bilateral lower lobe pneumonia Continue ceftriaxone azithromycin Continue albuterol Follow [facility], [place] Granddaughter tested positive for COVID, pt lives in same house, PCR pending (2) Hypertension: Code(s): I10 - Essential (primary) hypertension Status: Chronic Assessment and Plan: Home meds pending verificaiton BP stable Will resume when appropriate Monitor (3) Tobacco abuse: Code(s): Z72.0 - Tobacco use Status: Chronic Assessment and Plan: Cessation advised (4) Chronic respiratory failure with hypoxia and hypercapnia: Code(s): J96.11 - Chronic respiratory failure with hypoxia; J96.12 - Chronic respiratory failure with hypercapnia Status: Chronic Assessment and Plan: Acute on chronic respiratory failure with hypoxia and hypercapnia placed on BiPAP on admission no hypercapnia noted this Chest x-ray with pneumonia underlying severe COPD likely combination of both Does have new lower extremity edema Recent CT 80 shows pulmonary artery hypertension cardiomegaly and small to moderate bilateral pleural effusion so component of congestive heart failure is possible as well (5) Benign prostate hyperplasia: Code(s): N40.0 - Benign prostatic hyperplasia without lower urinary tract symptoms Status: Chronic Assessment and Plan: Resume home meds (6) COPD exacerbation: Code(s): J44.1 - Chronic obstructive pulmonary disease with (acute) exacerbation Status: Acute Assessment and Plan: Severe COPD with exacerbation Continue methylprednisolone to taper Albuterol prn Supplemental O2, on 5 L (7) Bilateral lower extremity edema: Code(s): R60.0 - Localized edema Status: Acute Assessment and Plan: Recent CT 80 shows pulmonary artery hypertension cardiomegaly and small to moderate bilateral pleural effusion so component of congestive heart failure is possible as well BNP 1270 S/p 20 mg IV Lasix x1 BL VD neg for DVT Will check ECHO (8) Anemia: Code(s): D64.9 - Anemia, unspecified Status: Acute Assessment and Plan: H/H 10.9/32.9 PLT 119 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 Additional Plan DVT Ppx: SCDs Code status: DNRdo not resuscitate Subjective Date/time seen: 08/23/21 15:00 Interval history: Pt seen this a.m.; labs, vs, diagnostic reports reviewed; pt +SOB, HIRSCH, cough; denies any CP Review of Systems Review of Systems: All systems reviewed & are unremarkable except as noted in HPI and below Exam Const: General: no acute distress, alert and awake Orientation/consciousness: patient oriented x3 HENMT: Head: normocephalic and atraumatic Ears: external ears normal Face and sinus: face symmetric Mouth: Yes Normal oral and palatal mucosa present Eyes: EOM: EOMs intact bilaterally Neck: Neck: full ROM, trachea midline and no JVD Resp: Effort & Inspection: normal respiratory effort Cardio: Jugular venous distension: no JVD Rate: regular rate Rhythm: regular rhythm Heart sounds: S1 normal heart sound present and S2 normal heart sound present GI: Inspection: normal to inspection GI Palp: Yes Soft to palpation Percussion: Yes normal to percussion Auscultation: normal bowel sounds : General: Yes no CVA tenderness Skin: General skin exam: normal color Rashes: no rashes Neuro: General: patient oriented x3 and no focal motor deficits Speech: normal speech Extrem: General: full ROM and edema Psych: Appearance: grossly normal Affect: normal affect Judgement: Good judgement present (Psych) Objective Data Vital Signs Vital Signs: Vital Signs - 24 hr 08/22/21 15:04 08/22/21 15:05 08/22/21 15:09 Temperature Pulse Rate 112 H 123 H Respiratory Rate 21 H Blood Pressure Pulse Oximetry 85 L 84 L
[2021-08-23 17:58] LABS: SARS-CoV-2 RNA PCR Negative
--- NOTE | 2021-08-23 18:53 | ECG_ITS ---
Measurements Intervals [place] Rate: 120 P: RI: 0 QRS: 51 QRSD: 146 T: 49 QT: 314 QTc: 444 Interpretive Statements ATRIAL FIBRILLATION WITH RAPID VENTRICULAR RESPONSE RIGHT BUNDLE BRANCH BLOCK BASELINE ARTIFACT- I, II, III, AVR, AVF, V3-V6 ABNORMAL ECG Electronically Signed On 08-24-2021 6:28:42 OBSTETRICS GYNECOLOGY MD by Nicanor Chino D.O.
[2021-08-23 20:01] LABS: Troponin I 0.018 ng/mL (0.000-0.034)
[2021-08-23] MEDS: dilTIAZem HCl INJ 25 MG/5 ML VIAL 10 MG IV PUSH (20:41)
--- NOTE | 2021-08-23 22:04 | ADMGEN ---
This patient, Manolo Sweet, was admitted to IMU Room 205-02. Patient/family oriented to hospital policies and general routines including ID bracelet, bed and alarms, visiting hours, pain management, procedures, bathroom and other care routines, personal items, smoking policy, room service/diet, and visiting hours. Information on how to activate the Rapid Response Team has been discussed. Patient/Family are encouraged to report perceived risks to care and to ask questions if they do not understand what they are told or what they should do.
[2021-08-23] MEDS: ENOXAPARIN 40 MG/0.4 ML SYRINGE SUB-Q (23:59)
[2021-08-24] VITALS (11 sets, daily range): BP systolic 119–135; BP diastolic 69–79; PULSE 94–121; RESP 20–24; TEMP 36–36.8; O2SAT 92–97
--- NOTE | 2021-08-24 | ECHO_ITS ---
Patient Info Name: Manolo Sweet Age: 76 years : 1945 Gender: Male Ht: 75 in Wt: 145 lbs BSA: 1.85 m2 HR: 127 bpm BP: 135 / 77 mmHg Heart Rhythm: Tachycardia Technical Quality: Fair Exam Date: 08/24/2021 10:38 AM Exam Location: [facility] Pulmonary Exam Room: [facility] Patient Status: Inpatient Admit Date: 08/22/2021 Staff Ordering Physician: Lisandro Marie MD Handbag Stitcher: Helen Barnes RDCS Attending Provider: Sony Page MD Exam Type: CA echo doppler color flow Study Info Indications - SOB Complete two-dimensional, color flow and Doppler transthoracic echocardiogram is performed. Summary 1. Complete two-dimensional, color flow and Doppler transthoracic echocardiogram is performed. 2. Normal left ventricular size with moderate concentric hypertrophy. Overall the left ventricular function appeared mildly impaired with an EF of 45-55%, but this was highly dependent on the patient's heart rate and filling time. No segmental wall motion abnormalities. Diastolic function is indeterminate. 3. Right ventricular chamber dimension is mildly enlarged. 4. Left atrial chamber dimension is moderately enlarged. 5. Right atrial chamber dimension is moderately enlarged. 6. There is mild tricuspid valve regurgitation. 7. Mild pulmonary hypertension, estimated pulmonary arterial systolic pressure is 39 mmHg. 8. Dilated inferior vena cava with <50% collapse upon inspiration consistent with significantly elevated right atrial pressure, 10 mmHg. 9. Technically difficult study. Most was done subcostal. Patient refused to continue the study so views are limited. 10. Rhythm indeterminate, tachycardic heart rate 120s. Left Ventricle Left ventricular chamber dimension is normal. Left ventricular systolic function is mildly reduced, estimated at 45-50%. There is moderately increased left ventricular wall thickness. Left ventricular septal wall motion is normal. The left ventricular diastolic function is indeterminate. Right Ventricle Right ventricular chamber dimension is mildly enlarged. Right ventricular systolic function is normal. Left Atria Left atrial chamber dimension is moderately enlarged. Right Atria Right atrial chamber dimension is moderately enlarged. Aortic Valve The aortic valve is trileaflet. There is moderate aortic valve sclerosis. There is no aortic valve stenosis. There is no aortic valve regurgitation. There is mild aortic valve calcification. Pulmonic Valve The pulmonic valve is normal. There is no pulmonic valve stenosis. There is no pulmonic regurgitation. Mitral Valve The mitral valve has normal leaflets. There is no mitral valve stenosis. There is no mitral valve regurgitation. Tricuspid Valve The tricuspid valve leaflets are normal. There is no significant tricuspid valve stenosis. There is mild tricuspid valve regurgitation. Mild pulmonary hypertension, estimated pulmonary arterial systolic pressure is 39 mmHg. Pericardium/Pleural The pericardium appears normal. There is no pericardial effusion. Inferior Vena Cava Dilated inferior vena cava with <50% collapse upon inspiration consistent with significantly elevated right atrial pressure, 10 mmHg. Aorta The aortic root size at the sinus of Valsalva is normal. The prox ascending aorta size is normal. Left Ventricular Outflow Tract Name Value
[2021-08-24] MEDS: ALBUTEROL SULFATE (*SP) AEROSOL 1 PUFF 2 PUFF INHALATION ×4 (01:39→16:31)
[2021-08-24 05:46] LABS: Hematocrit 30.2 % (42.0-52.0); Mean Corpuscular HGB Conc 33.1 g/dl (32-36); Mean Corpuscular Hemoglobin 31.9 pg (26-34); Mean Corpuscular Volume 96.5 fl (80-100); Mean Platelet Volume 9.6 fl (7.4-10.4); Platelet Count Result 141 k/mm3 (150-375); Red Blood Count 3.13 M/mm3 (4.6-6.20); Red Cell Distribution Width 17.2 % (11.5-14.5); White Blood Count 7.7 K/mm3 (4.5-10.0)
--- NOTE | 2021-08-24 05:54 | PCRCNOTE ---
Pt did not receive 04:00 inhaler as scheduled. RT unavailable to administer due to other priorities in the hospital.
[2021-08-24 06:12] LABS: Iron 12 ug/dL (49-181)
[2021-08-24 06:21] LABS: Percent Iron Saturation 7 % (20-50)
[2021-08-24 06:24] LABS: Anion Gap 4 mmol/L (8-16); Blood Urea Nitrogen 39 mg/dL (9-20); Calcium 8.5 mg/dL (8.4-10.2); Carbon Dioxide 31 mmol/L (22-30); Chloride 98 mmol/L (98-107); Estimated CRCL calculation 80 ml/min; Estimated Glomerular Filt Rate > 60; Glucose 169 mg/dL (65-110); Potassium 3.5 mmol/L (3.4-5.0); Sodium 133 mmol/L (137-145)
[2021-08-24] MEDS: methylPREDNISolone SOD SUCC 125 MG VIAL 60 MG IV PUSH ×5 (06:33→23:26)
[2021-08-24] MEDS: ENOXAPARIN 40 MG/0.4 ML SYRINGE SUB-Q ×2 (09:43→20:49)
--- NOTE | 2021-08-24 14:07 | PM.IMPN ---
Progress Note: A&P Assessment and Plan (1) CAP (community acquired pneumonia): Code(s): J18.9 - Pneumonia, unspecified organism Status: Acute Assessment and Plan: Bilateral lower lobe pneumonia Continue ceftriaxone azithromycin Continue albuterol Follow BC, [place] Granddaughter tested positive for COVID, negative (2) Hypertension: Code(s): I10 - Essential (primary) hypertension Status: Chronic Assessment and Plan: Home meds pending verificaiton BP stable Will resume when appropriate Monitor (3) Tobacco abuse: Code(s): Z72.0 - Tobacco use Status: Chronic Assessment and Plan: Cessation advised (4) Chronic respiratory failure with hypoxia and hypercapnia: Code(s): J96.11 - Chronic respiratory failure with hypoxia; J96.12 - Chronic respiratory failure with hypercapnia Status: Chronic Assessment and Plan: Acute on chronic respiratory failure with hypoxia and hypercapnia placed on BiPAP on admission no hypercapnia noted this Chest x-ray with pneumonia underlying severe COPD likely combination of both Does have new lower extremity edema Recent CT 80 shows pulmonary artery hypertension cardiomegaly and small to moderate bilateral pleural effusion so component of congestive heart failure is possible as well (5) Benign prostate hyperplasia: Code(s): N40.0 - Benign prostatic hyperplasia without lower urinary tract symptoms Status: Chronic Assessment and Plan: Resume home meds (6) COPD exacerbation: Code(s): J44.1 - Chronic obstructive pulmonary disease with (acute) exacerbation Status: Acute Assessment and Plan: Severe COPD with exacerbation Continue methylprednisolone to taper Albuterol prn Supplemental O2, on 6 L (7) Bilateral lower extremity edema: Code(s): R60.0 - Localized edema Status: Acute Assessment and Plan: Recent CT 80 shows pulmonary artery hypertension cardiomegaly and small to moderate bilateral pleural effusion so component of congestive heart failure is possible as well BNP 1270 S/p 20 mg IV Lasix x1 BL VD neg for DVT Will check ECHO (8) Anemia: Code(s): D64.9 - Anemia, unspecified Status: Acute Assessment and Plan: H/H 10.9/32.9 PLT 119 Check iron panel edge sealer Additional Plan DVT Ppx: SCDs Code status: DNR Subjective Date/time seen: 08/24/21 11:07 Interval history: 08/23 Pt seen this a.m.; labs, vs, diagnostic reports reviewed; pt +SOB, HIRSCH, cough; denies any CP 12/2 Pt seen this a.m.; undergoing ECHO; no new complaints; +SOB and HIRSCH Review of Systems Review of Systems: All systems reviewed & are unremarkable except as noted in HPI and below Exam Const: General: no acute distress, alert and awake Orientation/consciousness: patient oriented x3 HENMT: Head: normocephalic and atraumatic Ears: external ears normal Face and sinus: face symmetric Mouth: Yes Normal oral and palatal mucosa present Eyes: EOM: EOMs intact bilaterally Neck: Neck: full ROM, trachea midline and no JVD Resp: Effort & Inspection: normal respiratory effort Cardio: Jugular venous distension: no JVD Rate: regular rate Rhythm: regular rhythm Heart sounds: S1 normal heart sound present and S2 normal heart sound present GI: Inspection: normal to inspection Auscultation: normal bowel sounds : General: Yes no CVA tenderness Back/Spine/Pelvis: Back: no CVA tenderness Skin: General skin exam: normal color Rashes: no rashes Neuro: General: patient oriented x3 and no focal motor deficits Speech: normal speech Extrem: General: full ROM and edema Psych: Appearance: grossly normal Affect: normal affect Judgement: Good judgement present (Psych) Objective Data Vital Signs Vital Signs: Vital Signs - 24 hr 08/23/21 15:12 08/23/21 20:03 08/23/21 21:30 Temperature Pulse Rate 94 132 H 115 H Respiratory Rate 26 H 23 H 24 H Blood Pressure 139/75 1
[2021-08-24] MEDS: LORazepam (*CRX) 0.5 MG TABLET PO (14:38)
--- NOTE | 2021-08-24 14:52 | PCPTNOTE ---
Attempted PT evaluation this date however pt refused stating that he had just gotten into bed. Will attempt at a later date/time.
--- NOTE | 2021-08-24 16:20 | PCDIET ---
Pt screened in for MST 2 for recent unintentional weight loss of 2-13lb and decreased appetite. Attempted to reach pt via phone x2; asked to call back on first attempt, no answer on second attempt. Per EMR, pt is on a heart healthy diet with a dietary supplement of ensure compact BID providing an additional 220kcal and 9g protein. Per EMR, intake is 100% x2 and 90%. Agree with current diet orders. No nutrition concerns at this time. Will follow up with pt in 7 days.
--- NOTE | 2021-08-24 23:05 | ADMGEN ---
This patient, Manolo Sweet, was transferred to [facility] from . Patient/family oriented to hospital policies and general routines including ID bracelet, bed and alarms, visiting hours, pain management, procedures, bathroom and other care routines, personal items, smoking policy, room service/diet, and visiting hours. Report received from Razia BUSTOS. Patient transferred by bed.
[2021-08-24] MEDS: MELATONIN 5 MG TABLET 10 MG PO (23:22)
--- NOTE | 2021-08-24 23:25 | PC.NURSE ---
Patient transferred to [facility] Bed 7 at 2320 on 08/24/21. Report called to AKASH Forte at [id number].
[2021-08-25] VITALS (21 sets, daily range): BP systolic 108–136; BP diastolic 70–87; PULSE 92–156; RESP 16–24; TEMP 36.1–36.7; O2SAT 88–94; BMI 18.1
[2021-08-25] MEDS: ALBUTEROL SULFATE NEB 2.5 MG/0.5 ML INH INHALATION ×3 (01:00→22:47)
--- NOTE | 2021-08-25 04:18 | ECG_ITS ---
Measurements Intervals [place] Rate: 88 P: [place]: 0 QRS: 28 QRSD: 169 T: 0 QT: 368 QTc: 446 Interpretive Statements ATRIAL FIBRILLATION RIGHT BUNDLE BRANCH BLOCK ABNORMAL ECG Electronically Signed On 08-25-2021 5:59:01 UNIT SUPPORT REPRESENTATIVE by Nicanor Chino D.O.
[2021-08-25] MEDS: METOPROLOL TARTRATE INJ 5 MG/5 ML VIAL IV PUSH (04:19)
[2021-08-25 05:00] LABS: Hematocrit 28.2 % (42.0-52.0); Hemoglobin 9.5 g/dL (14.0-18.0); Mean Corpuscular HGB Conc 33.7 g/dl (32-36); Mean Corpuscular Hemoglobin 32.3 pg (26-34); Mean Corpuscular Volume 95.9 fl (80-100); Mean Platelet Volume 9.2 fl (7.4-10.4); Platelet Count Result 146 k/mm3 (150-375); Red Blood Count 2.94 M/mm3 (4.6-6.20); Red Cell Distribution Width 16.7 % (11.5-14.5)
--- NOTE | 2021-08-25 05:06 | PC.NURSE ---
At 0415 pt called nurses station to report chest pain. Chest pain was 4/10 midsternal radiating upward. [place] RN called Dr. Meneses who ordered EKG, stat troponins, and 5 mg IV push metoprolol based on patients heart rate and chest pain. Metoprolol was given, EKG and troponins obtained. Patient is now resting comfortably and requesting a sandwich.
[2021-08-25 05:12] LABS: Anion Gap 3 mmol/L (8-16); Blood Urea Nitrogen 43 mg/dL (9-20); Calcium 8.5 mg/dL (8.4-10.2); Carbon Dioxide 31 mmol/L (22-30); Chloride 102 mmol/L (98-107); Estimated CRCL calculation 62 ml/min; Estimated Glomerular Filt Rate > 60; Glucose 185 mg/dL (65-110); Potassium 3.8 mmol/L (3.4-5.0); Sodium 136 mmol/L (137-145)
[2021-08-25 05:22] LABS: Troponin I 0.024 ng/mL (0.000-0.034)
[2021-08-25] MEDS: methylPREDNISolone SOD SUCC 125 MG VIAL 60 MG IV PUSH ×2 (05:40→13:00)
[2021-08-25] MEDS: ENOXAPARIN 40 MG/0.4 ML SYRINGE SUB-Q ×2 (08:45→21:49)
[2021-08-25] MEDS: TAMSULOSIN HCL 0.4 MG CAPSULE PO (08:45)
[2021-08-25] MEDS: amLODIPine BESYLATE 5 MG TABLET PO (08:45)
[2021-08-25] MEDS: ROFLUMILAST 500 MCG TABLET PO (08:45)
[2021-08-25] MEDS: ALPRAZolam (*CRX) 0.5 MG TABLET PO (11:27)
--- NOTE | 2021-08-25 11:28 | PCOTNOTE ---
Attempted to see pt. for evaluation. Pt. refused and requested evaluation later this afternoon d/t fatigue. Will follow-up at later time
--- NOTE | 2021-08-25 11:32 | PCPTNOTE ---
Pt refused twice in am.RN aware and will try in pm.
--- NOTE | 2021-08-25 14:13 | PCNSR ---
On 08/25/21, the student,Arleen Anaya, provided care and completed [facility] documentation on this patient. I have reviewed the student's documentation and agree with the findings.
--- NOTE | 2021-08-25 15:05 | PM.IMPN ---
Progress Note: A&P Assessment and Plan (1) CAP (community acquired pneumonia): Code(s): J18.9 - Pneumonia, unspecified organism Status: Acute Assessment and Plan: Bilateral lower lobe pneumonia Continue ceftriaxone azithromycin Continue albuterol BC and sputum culture is pending Granddaughter tested positive for COVID, negative (2) Hypertension: Code(s): I10 - Essential (primary) hypertension Status: Chronic Assessment and Plan: 136/89 BP stable (3) Tobacco abuse: Code(s): Z72.0 - Tobacco use Status: Chronic Assessment and Plan: Cessation advised (4) Chronic respiratory failure with hypoxia and hypercapnia: Code(s): J96.11 - Chronic respiratory failure with hypoxia; J96.12 - Chronic respiratory failure with hypercapnia Status: Chronic Assessment and Plan: Acute on chronic respiratory failure with hypoxia and hypercapnia placed on BiPAP on admission no hypercapnia noted this Chest x-ray with pneumonia underlying severe COPD Recent CT 80 shows pulmonary artery hypertension cardiomegaly and small to moderate bilateral pleural effusion RPt CTA to rule out PE (5) Benign prostate hyperplasia: Code(s): N40.0 - Benign prostatic hyperplasia without lower urinary tract symptoms Status: Chronic Assessment and Plan: Resume home meds (6) COPD exacerbation: Code(s): J44.1 - Chronic obstructive pulmonary disease with (acute) exacerbation Status: Acute Assessment and Plan: Severe COPD with exacerbation Continue methylprednisolone to taper Albuterol prn oxygen iv rocephin and iv zithromax (7) Bilateral lower extremity edema: Code(s): R60.0 - Localized edema Status: Acute Assessment and Plan: Recent CT 80 shows pulmonary artery hypertension cardiomegaly and small to moderate bilateral pleural effusion so component of congestive heart failure is possible as well BNP 1270 continue to continue bnp (8) Anemia: Code(s): D64.9 - Anemia, unspecified Status: Acute Assessment and Plan: Hb is 9 Subjective Date/time seen: 08/25/21 15:05 Interval history: 76-year-old male who presents to the ER with shortness of breath. He was recently discharged from the hospital about 2 weeks ago on oxygen 5-6 L via nasal cannula. He has been having increased shortness of breath and cough over the past few days. No fever or chills. He also reported lower extremity edema but no chest pain or pressure. Pt has been running Af with RVR since the morning. Now at 150s EKG ordered, metoprolol ordered, cardiology consulted. Pt has history of COPD with chronic respiratory failure on home oxygen. CAP tobacco abuse. Review of Systems Review of Systems: All systems reviewed & are unremarkable except as noted in HPI and below Exam Const: Orientation/consciousness: oriented to person HENMT: Head: normal to inspection Resp: Effort & Inspection: other (Bilateral wheezy lungs) Cardio: Rate: regular rate Rhythm: regular rhythm GI: Inspection: normal to inspection GI Palp: No abdominal tenderness, No Guarding due to palpation present (GI) and No Hepatomegaly present Auscultation: normal bowel sounds Neuro: General: oriented to person Objective Data Vital Signs Vital Signs: Vital Signs - 24 hr 08/24/21 16:00 08/24/21 19:48 08/24/21 20:00 Temperature 36.3 C L 36.4 C Pulse Rate 100 107 H 112 H Pulse Rate [With Activity During Therapy Session] Respiratory Rate 22 H 20 Blood Pressure 132/79 127/77 Pulse Oximetry 93 97 Pulse Oximetry [With Activity During Therapy Session] 08/25/21 00:00 08/25/21 01:00 08/25/21 01:10 Temperature Pulse Rate 102 H 102 H 101 H Pulse Rate [With Activity During Therapy Session] Respiratory Rate 23 H 20 20 Blood Pressure 130/70 Pulse Oximetry 92 Pulse Oximetry [With Activity During Therapy Session] 08/25/21 02:00 08/25/21 04
--- NOTE | 2021-08-25 15:19 | PM.CNCAR ---
Assessment and Plan Assessment and plan (1) Atrial fibrillation: Code(s): I48.91 - Unspecified atrial fibrillation Status: Acute Assessment and Plan: New onset during this hospitalization. Possibly related to acute illness with pneumonia, chronic lung disease. He denies any history of atrial fibrillation. He is asymptomatic. Rate 100-120 bpm mostly. He has been started on metoprolol for rate control but in light of his severe COPD I am going to discontinue this and shift him to oral diltiazem. He has a [id number] score of 3 (age >75, HTN), anticoagulation is indicated. He denies having previous bleeding history or any history of falls. Will start him on Xarelto 20mg daily, lovenox will be discontinued after tomorrow's a.m. dose. (2) COPD exacerbation: Code(s): J44.1 - Chronic obstructive pulmonary disease with (acute) exacerbation Status: Acute Assessment and Plan: Better with nebulizer treatments, steroids. Management per primary service. (3) Tobacco abuse: Code(s): Z72.0 - Tobacco use Status: Chronic Assessment and Plan: Current smoker despite severe lung disease. Smoking cessation has been encouraged. (4) CAP (community acquired pneumonia): Code(s): J18.9 - Pneumonia, unspecified organism Status: Acute Assessment and Plan: Abx, supportive care, supplemental O2. Management per primary service. History of Present Illness History of Present Illness Consult date/time: 08/25/21 15:19 Requesting physician: Rosalie Khoury MD Consult reason: atrial fibrillation Reason For Visit: Pneumonia, COPD Narrative: Mr. Sweet is a 76 year old male with a past medical history of COPD, hypertension, and tobacco abuse who presented to the hospital for shortness of breath. This is a patient who had a recent hospitalization for COPD exacerbation and was discharged on oxygen. Patient tells me that he is on 7 L of oxygen at home although documentation in his medical record indicates that he was to be on 5-6 L at home. He has been experiencing worsening shortness of breath over the past week or so. He is currently being treated for community-acquired pneumonia. We have been counseled to see him for atrial fibrillation. When he entered the hospital EKG showed sinus tachycardia but he went into atrial fibrillation with rapid ventricular response the next day. Another EKG from earlier this morning shows atrial fibrillation with controlled rate. Earlier today, patient became tachycardic once again. He tells me that he has no history of atrial fibrillation and denies any cardiac history whatsoever. He is not experiencing any palpitations or feeling a rapid heartbeat. He denies chest pain. He does have shortness of breath but this is a chronic issue as he has severe COPD and now pneumonia. Review of Systems Review of Systems: All systems reviewed & are unremarkable except as noted in HPI and below Constitutional: Constitutional: Reports weakness Eyes: Eyes: Denies change in vision ENT: Reports Normal hearing present Cardiovascular: Cardiovascular: Denies chest pain, Denies lightheadedness and Denies palpitations Respiratory: Respiratory: Reports cough, Reports dyspnea, Reports dyspnea on exertion and Reports wheezing Gastrointestinal: Gastrointestinal: Denies melena, Denies constipation and Denies diarrhea Genitourinary: Genitourinary: Denies dysuria Musculoskeletal: Musculoskeletal: Denies back pain, Denies myalgias and Denies neck pain Integumentary/Breasts: Skin/Breast: Denies dry skin and Denies unusual bruising Neurologic: Denies confusion and Denies headache(s) Psychiatric: Psychiatric: Reports anxiety and Denies depression Endocrine: Endocrine: Denies excessive sweating and Denies fatigue Hematologic/Lymphatic: Hematologic/Lymphatic: Denies easy bleeding and Denies easy bruising Allergic/Immunologic: Allergic/Immunologic: Denies GI up
[2021-08-25] MEDS: METOPROLOL TARTRATE 25 MG TABLET PO (15:55)
--- NOTE | 2021-08-25 16:53 | ADMGEN ---
This patient, Manolo Sweet, was admitted to room 259-1. Patient oriented to hospital policies and general routines including ID bracelet, bed and alarms, visiting hours, pain management, procedures, bathroom and other care routines, personal items, smoking policy, room service/diet, and visiting hours. Information on how to activate the Rapid Response Team has been discussed. Patient/Family are encouraged to report perceived risks to care and to ask questions if they do not understand what they are told or what they should do.
[2021-08-25] MEDS: MELATONIN 5 MG TABLET 10 MG PO (21:49)
[2021-08-25] MEDS: methylPREDNISolone SOD SUCC 40 MG VIAL IV PUSH (21:49)
[2021-08-26] VITALS (28 sets, daily range): BP systolic 109–140; BP diastolic 63–90; PULSE 80–140; RESP 14–24; TEMP 36.1–37.1; O2SAT 90–95
[2021-08-26] MEDS: dilTIAZem HCL 30 MG TABLET PO ×2 (00:02→06:07)
[2021-08-26] MEDS: IPRATROPIUM BR 0.02% INH SOLN 0.5 MG/2.5 ML VIAL INHALATION ×5 (02:25→21:29)
[2021-08-26] MEDS: ALBUTEROL SULFATE NEB 2.5 MG/0.5 ML INH INHALATION (02:25)
[2021-08-26] MEDS: METOPROLOL TARTRATE INJ 5 MG/5 ML VIAL IV PUSH ×2 (03:30→14:01)
[2021-08-26] MEDS: ACETAMINOPHEN 325 MG TABLET 650 MG PO (03:31)
[2021-08-26] MEDS: ALPRAZolam (*CRX) 0.5 MG TABLET PO ×2 (03:32→14:06)
[2021-08-26] MEDS: methylPREDNISolone SOD SUCC 40 MG VIAL IV PUSH ×3 (06:07→20:38)
--- NOTE | 2021-08-26 06:37 | PC.NURSE ---
PT CHEST PAIN HAS RESOLVED. RATES PAIN A 0 AT 0400. WILL CONTINUE TO MONITOR. HEART RATE HAS RESPONDED TO THE LOPRESSOR IV GIVEN AND HEART RATE IS IN THE 90'S AFIB. O2 SAT ON 6L IS 95%
[2021-08-26] MEDS: TAMSULOSIN HCL 0.4 MG CAPSULE PO (08:52)
[2021-08-26] MEDS: ENOXAPARIN 40 MG/0.4 ML SYRINGE SUB-Q (08:52)
[2021-08-26] MEDS: ROFLUMILAST 500 MCG TABLET PO (08:52)
[2021-08-26] MEDS: amLODIPine BESYLATE 5 MG TABLET PO (08:52)
--- NOTE | 2021-08-26 09:07 | PM.IMPN ---
Progress Note: A&P Assessment and Plan (1) CAP (community acquired pneumonia): Code(s): J18.9 - Pneumonia, unspecified organism Status: Acute Assessment and Plan: Bilateral lower lobe pneumonia Continue ceftriaxone azithromycin Continue albuterol BC and sputum culture are negative to date Granddaughter tested positive for COVID (2) Hypertension: Code(s): I10 - Essential (primary) hypertension Status: Chronic Assessment and Plan: 136/89 BP stable (3) Tobacco abuse: Code(s): Z72.0 - Tobacco use Status: Chronic Assessment and Plan: Cessation advised (4) Chronic respiratory failure with hypoxia and hypercapnia: Code(s): J96.11 - Chronic respiratory failure with hypoxia; J96.12 - Chronic respiratory failure with hypercapnia Status: Chronic Assessment and Plan: Acute on chronic respiratory failure with hypoxia and hypercapnia placed on BiPAP on admission no hypercapnia noted this Chest x-ray with pneumonia underlying severe COPD Recent CT 80 shows pulmonary artery hypertension cardiomegaly and small to moderate bilateral pleural effusion RPt CTA -1. No pulmonary embolus. 2. Worsening pneumonia involving the lower lobes and right middle lobe. 3. Severe emphysema. 4. Small pleural effusions. 5. Mild bilateral hilar lymphadenopathy, likely reactive. 6. Small volume of ascites. (5) Benign prostate hyperplasia: Code(s): N40.0 - Benign prostatic hyperplasia without lower urinary tract symptoms Status: Chronic Assessment and Plan: Resume home meds (6) COPD exacerbation: Code(s): J44.1 - Chronic obstructive pulmonary disease with (acute) exacerbation Status: Acute Assessment and Plan: Severe COPD with exacerbation Continue methylprednisolone to taper Albuterol prn oxygen iv rocephin and iv zithromax (7) Bilateral lower extremity edema: Code(s): R60.0 - Localized edema Status: Resolved Assessment and Plan: Resolving (8) Anemia: Code(s): D64.9 - Anemia, unspecified Status: Acute Assessment and Plan: Hb is 9 (9) Person under investigation for COVID-19: Code(s): Z20.822 - Contact with and (suspected) exposure to COVID-19 Status: Acute Assessment and Plan: Family with COVID Pt is high risk pt will need isolation and COVID swab Subjective Date/time seen: 08/26/21 09:07 Interval history: 76-year-old male who presents to the ER with shortness of breath. He was recently discharged from the hospital about 2 weeks ago on oxygen 5-6 L via nasal cannula. He has been having increased shortness of breath and cough over the past few days. No fever or chills. He also reported lower extremity edema but no chest pain or pressure. Pt has been running Af with RVR yesteday heart rate is in the 80s now. EKG ordered, metoprolol ordered, cardiology consulted yesterday . Pt has history of COPD with chronic respiratory failure on home oxygen. CAP tobacco abuse. Pt is currently on 7 liters of oxygen. Pts family have COVID. Review of Systems Review of Systems: All systems reviewed & are unremarkable except as noted in HPI and below Exam Const: Orientation/consciousness: oriented to person HENMT: Head: normal to inspection Resp: Effort & Inspection: other (Bilateral wheezy lungs) Cardio: Rate: regular rate Rhythm: regular rhythm GI: Inspection: normal to inspection Auscultation: normal bowel sounds Neuro: General: oriented to person Objective Data Vital Signs Vital Signs: Vital Signs - 24 hr 08/25/21 10:20 08/25/21 10:27 08/25/21 11:28 Temperature 36.4 C L Pulse Rate 100 94 Pulse Rate [With Activity During Therapy Session] Respiratory Rate 22 H 17 Blood Pressure Pulse Oximetry 94 94 Pulse Oximetry [With Activity During Therapy Session] 08/25/21 12:00 08/25/21 14:08 08/25/21 15:05 Temperature Pulse Rate 94 10
[2021-08-26 10:52] LABS: EDCOVIDSCREEN Positive (Negative)
--- NOTE | 2021-08-26 12:54 | PC.NURSE ---
pt. transferring to Med Surg due to positive COVID. report given to Kathleen
[2021-08-26] MEDS: METOPROLOL TARTRATE 25 MG TABLET PO ×2 (14:01→20:38)
--- NOTE | 2021-08-26 14:24 | PC.NURSE ---
This patient, Manolo Sweet, was received from [[address] [place] [address]] on 08/26/21 at 1320. Patient/family oriented to unit policies and routines
[2021-08-26] MEDS: RIVAROXABAN 20 MG TABLET PO (17:01)
--- NOTE | 2021-08-26 19:50 | PC.NURSE ---
This patient, Manolo Sweet, was received from [ [id number]] on 08/26/21 at 1838. Patient/family oriented to unit policies and routines
[2021-08-26] MEDS: MELATONIN 5 MG TABLET 10 MG PO (20:38)
[2021-08-27] VITALS (22 sets, daily range): BP systolic 120–144; BP diastolic 54–97; PULSE 73–130; RESP 18–28; TEMP 36.2–36.8; O2SAT 89–94
[2021-08-27] MEDS: IPRATROPIUM BR 0.02% INH SOLN 0.5 MG/2.5 ML VIAL INHALATION ×2 (01:03→03:38)
--- NOTE | 2021-08-27 05:08 | ECG_ITS ---
Measurements Intervals [place] Rate: 137 P: [place]: 0 QRS: 48 QRSD: 153 T: 44 QT: 309 QTc: 467 Interpretive Statements ATRIAL FIBRILLATION WITH RAPID VENTRICULAR RESPONSE RIGHT BUNDLE BRANCH BLOCK BASELINE ARTIFACT- III, AVR, AVL, AVF, V1-V3 ABNORMAL ECG Electronically Signed On 08-27-2021 17:00:44 SUPPORT ANALYST by Nicanor Chino D.O.
--- NOTE | 2021-08-27 05:10 | PC.NURSE ---
Patient's heart rate jumped to 140, Afib. Patient developed 8/10 chest pain radiating to the jaw. Ekg done and has not changed from previous Ekgs. Dr. Vogel notified, orders to increase the Cardizem drip to 10mg/hr. B/P 144/97. Dr Meneses also notified of changes.
[2021-08-27] MEDS: METOPROLOL TARTRATE 25 MG TABLET PO ×2 (06:06→14:52)
[2021-08-27] MEDS: methylPREDNISolone SOD SUCC 40 MG VIAL IV PUSH ×3 (06:06→21:06)
--- NOTE | 2021-08-27 06:47 | PC.NURSE ---
Patient feeling better, denies chest pain at this time. Still in Afib, rate 120s.
[2021-08-27] MEDS: ROFLUMILAST 500 MCG TABLET PO (08:29)
[2021-08-27] MEDS: TAMSULOSIN HCL 0.4 MG CAPSULE PO (08:29)
[2021-08-27] MEDS: ALBUTEROL SULFATE (*SP) AEROSOL 1 PUFF 2 PUFF INHALATION ×4 (08:55→21:15)
[2021-08-27 10:40] LABS: Hematocrit 31.5 % (42.0-52.0); Hemoglobin 10.2 g/dL (14.0-18.0); Mean Corpuscular HGB Conc 32.4 g/dl (32-36); Mean Corpuscular Hemoglobin 32.3 pg (26-34); Mean Corpuscular Volume 99.7 fl (80-100); Platelet Count Result 162 k/mm3 (150-375); Red Blood Count 3.16 M/mm3 (4.6-6.20); Red Cell Distribution Width 16.3 % (11.5-14.5); White Blood Count 5.1 K/mm3 (4.5-10.0)
[2021-08-27 10:50] LABS: Alanine Aminotransferase 62 U/L (4-50); Albumin Level 2.9 g/dL (3.5-5.1); Alkaline Phosphatase 55 U/L (38-126); Anion Gap 5 mmol/L (8-16); Aspartate Amino Transferase 37 U/L (17-59); Bilirubin,Total 0.3 mg/dL (0.2-1.3); Blood Urea Nitrogen 42 mg/dL (9-20); Calcium 8.7 mg/dL (8.4-10.2); Carbon Dioxide 28 mmol/L (22-30); Chloride 96 mmol/L (98-107); Estimated CRCL calculation 80 ml/min; Estimated Glomerular Filt Rate > 60; Glucose 244 mg/dL (65-110); Potassium 4.6 mmol/L (3.4-5.0); Sodium 129 mmol/L (137-145)
[2021-08-27 11:04] LABS: Troponin I < 0.012 ng/mL (0.000-0.034)
--- NOTE | 2021-08-27 12:06 | PM.IMPN ---
Progress Note: A&P Assessment and Plan (1) CAP (community acquired pneumonia): Code(s): J18.9 - Pneumonia, unspecified organism Status: Acute Assessment and Plan: Bilateral lower lobe pneumonia Continue ceftriaxone azithromycin Continue albuterol BC and sputum culture are negative to date Granddaughter tested positive for COVID (2) Hypertension: Code(s): I10 - Essential (primary) hypertension Status: Chronic Assessment and Plan: 136/89 BP stable (3) Tobacco abuse: Code(s): Z72.0 - Tobacco use Status: Chronic Assessment and Plan: Cessation advised (4) Chronic respiratory failure with hypoxia and hypercapnia: Code(s): J96.11 - Chronic respiratory failure with hypoxia; J96.12 - Chronic respiratory failure with hypercapnia Status: Chronic Assessment and Plan: Acute on chronic respiratory failure with hypoxia and hypercapnia placed on BiPAP on admission no hypercapnia noted this Chest x-ray with pneumonia underlying severe COPD Recent CT 80 shows pulmonary artery hypertension cardiomegaly and small to moderate bilateral pleural effusion RPt CTA -1. No pulmonary embolus. 2. Worsening pneumonia involving the lower lobes and right middle lobe. 3. Severe emphysema. 4. Small pleural effusions. 5. Mild bilateral hilar lymphadenopathy, likely reactive. 6. Small volume of ascites. (5) Benign prostate hyperplasia: Code(s): N40.0 - Benign prostatic hyperplasia without lower urinary tract symptoms Status: Chronic Assessment and Plan: Resume home meds (6) COPD exacerbation: Code(s): J44.1 - Chronic obstructive pulmonary disease with (acute) exacerbation Status: Acute Assessment and Plan: Severe COPD with exacerbation Continue methylprednisolone to taper Albuterol prn oxygen iv rocephin and iv zithromax (7) Bilateral lower extremity edema: Code(s): R60.0 - Localized edema Status: Resolved Assessment and Plan: Resolving (8) Anemia: Code(s): D64.9 - Anemia, unspecified Status: Acute Assessment and Plan: Hb is 9 (9) Person under investigation for COVID-19: Code(s): Z20.822 - Contact with and (suspected) exposure to COVID-19 Status: Acute Assessment and Plan: Family with COVID Pt is high risk pt will need isolation and COVID swab (10) COVID: Code(s): U07.1 - COVID-19 Status: Acute Assessment and Plan: Continue oxygenation, supportive care, prone positioning and iv steroids and lovenox Subjective Date/time seen: 08/27/21 12:06 Interval history: 76-year-old male who presents to the ER with shortness of breath. He was recently discharged from the hospital about 2 weeks ago on oxygen 5-6 L via nasal cannula. He has been having increased shortness of breath and cough over the past few days. No fever or chills. He also reported lower extremity edema but no chest pain or pressure. Pt has been running Af with RVR yesteday heart rate is in the 80s now. EKG ordered, metoprolol ordered, cardiology consulted yesterday . Pt has history of COPD with chronic respiratory failure on home oxygen. CAP tobacco abuse. Pt is currently on 7 liters of oxygen. Pts family have COVID. Pt was tested positive for COVID continue steroids in the hospital Review of Systems Review of Systems: All systems reviewed & are unremarkable except as noted in HPI and below Objective Data Vital Signs Vital Signs: Vital Signs - 24 hr 08/26/21 12:43 08/26/21 12:52 08/26/21 14:01 Temperature Pulse Rate 114 H 115 H 140 H Respiratory Rate 20 20 Blood Pressure Pulse Oximetry 08/26/21 14:39 08/26/21 16:00 08/26/21 16:50 Temperature 37.1 C Pulse Rate 121 H 122 H 110 H Respiratory Rate 14 20 Blood Pressure 126/66 Pulse Oximetry 90 08/26/21 16:54 08/26/21 18:30 08/26/21 20:00 Temperature 36.6 C Pulse Rate 118 H 110 H 11
--- NOTE | 2021-08-27 14:04 | PM.PNCARD ---
Progress Note: A&P Assessment and Plan (1) Atrial fibrillation: Code(s): I48.91 - Unspecified atrial fibrillation Status: Acute Assessment and Plan: New onset during this hospitalization. Secondary to acute illness with pneumonia, chronic lung disease and COVID positive. He denies any history of atrial fibrillation. He is now more symptomatic with heart rates up to the 150s. Increase diltiazem to 15 milligram/hour. If heart rate poorly controlled in addition to metoprolol will need to stop in favor of amiodarone infusion.: He has already been started on systemic anticoagulation. He has a [id number] score of 3 (age >75, HTN), anticoagulation is indicated. He denies having previous bleeding history or any history of falls. Continue Xarelto 20mg daily, monitor for bleeding. (2) COVID: Code(s): U07.1 - COVID-19 Status: Acute Assessment and Plan: As above, patient is currently on isolation. Medical Management per primary service. (3) Chest pain: Code(s): R07.9 - Chest pain, unspecified Status: Acute Assessment and Plan: Atypical, worse with coughing deep breathing most likely musculoskeletal etiology. Troponins negative, EKG without new acute ischemic changes. (4) COPD exacerbation: Code(s): J44.1 - Chronic obstructive pulmonary disease with (acute) exacerbation Status: Acute Assessment and Plan: Better with nebulizer treatments, steroids now worsening symptoms with COVID Management per primary service. (5) CAP (community acquired pneumonia): Code(s): J18.9 - Pneumonia, unspecified organism Status: Acute Assessment and Plan: Abx, supportive care, supplemental O2. Management per primary service. (6) Tobacco abuse: Code(s): Z72.0 - Tobacco use Status: Chronic Assessment and Plan: Smoking cessation. Patient continues to smoke despite known underlying COPD. Subjective Date/time seen: Date of service: 08/27/21 14:04 Follow-up for atrial fibrillation with RVR, COVID positive COVID returned positive now on isolation. Heart rate had been fair in AFib more rapid yesterday afternoon. Transfer to IMU. Heart rate remains elevated despite p.o. metoprolol and IV diltiazem infusion. Patient feeling better. Still notes intermittent sharp chest pain worse with coughing and shortness of breath. BP stable. Review of Systems Review of Systems: All systems reviewed & are unremarkable except as noted in HPI and below Constitutional: Constitutional: Reports as per HPI, Denies excessive sweating, Reports fatigue, Denies headache(s), Reports lethargy and Reports weakness Eyes: Eyes: Reports as per HPI and Denies change in vision ENT: Reports as per HPI, Reports Normal hearing present, Denies headache(s) and Denies neck pain Cardiovascular: Cardiovascular: Reports as per HPI, Reports chest pain, Denies lightheadedness, Reports palpitations, Reports dyspnea and Reports dyspnea on exertion Respiratory: Respiratory: Reports as per HPI, Reports cough, Reports dyspnea, Reports dyspnea on exertion and Reports wheezing Gastrointestinal: Gastrointestinal: Reports as per HPI, Denies melena, Denies constipation and Denies diarrhea Genitourinary: Genitourinary: Reports as per HPI and Denies dysuria Musculoskeletal: Musculoskeletal: Reports as per HPI, Denies back pain, Denies myalgias and Denies neck pain Integumentary/Breasts: Skin/Breast: Reports as per HPI, Denies dry skin and Denies unusual bruising Neurologic: Reports as per HPI, Reports Normal hearing present, Denies confusion, Denies headache(s) and Reports weakness Psychiatric: Psychiatric: Reports as per HPI, Reports anxiety, Denies confusion and Denies depression Endocrine: Endocrine: Reports as per HPI, Denies excessive sweating, Denies fatigue and Denies palpitations Hematologic/Lymphatic: Hematologic/Lymphatic: Reports as per HPI, Denies easy bleeding and Denies easy
[2021-08-27] MEDS: BENZONATATE 100 MG CAPSULE PO ×2 (14:52→17:12)
[2021-08-27] MEDS: RIVAROXABAN 20 MG TABLET PO (17:13)
[2021-08-27] MEDS: ACETAMINOPHEN 325 MG TABLET 650 MG PO (18:49)
[2021-08-27] MEDS: MELATONIN 5 MG TABLET 10 MG PO (21:06)
[2021-08-28] VITALS (17 sets, daily range): BP systolic 102–138; BP diastolic 53–68; PULSE 76–114; RESP 18–26; TEMP 36.3–36.7; O2SAT 92–99
--- NOTE | 2021-08-28 02:55 | PCRCNOTE ---
Window of time for administration has passed. See next scheduled administration.
[2021-08-28] MEDS: ALBUTEROL SULFATE (*SP) AEROSOL 1 PUFF 2 PUFF INHALATION ×5 (03:00→15:08)
--- NOTE | 2021-08-28 04:07 | PC.NURSE ---
Patient up to [facility]. Since then, heart rate has been consistently > 100, Afib. Cardizem drip resumed at 5mg/hr per MD order.
[2021-08-28] MEDS: methylPREDNISolone SOD SUCC 40 MG VIAL IV PUSH (06:06)
[2021-08-28] MEDS: ACETAMINOPHEN 325 MG TABLET 650 MG PO (06:20)
--- NOTE | 2021-08-28 08:49 | PM.PNCARD ---
Progress Note: A&P Assessment and Plan (1) Atrial fibrillation: Code(s): I48.91 - Unspecified atrial fibrillation Status: Acute Assessment and Plan: New onset during this hospitalization. Secondary to acute illness with pneumonia, chronic lung disease and COVID positive. He denies any history of atrial fibrillation. Had been on diltiazem 15 mg an hour but had some bradycardia overnight therefore, diltiazem was reduced to 5 mg an hour then up titrated to 10 mg an hour because of tachycardia. This morning, his rate is mostly in the 80s and 90s with some brief periods of tachycardia in the low 100s. Generally asymptomatic. We will transition him to oral diltiazem today. He has already been started on systemic anticoagulation. He has a [id number] score of 3 (age >75, HTN), anticoagulation is indicated. He denies having previous bleeding history or any history of falls. Continue Xarelto 20mg daily, monitor for bleeding. (2) COVID: Code(s): U07.1 - COVID-19 Status: Acute Assessment and Plan: As above, patient is currently on isolation. Medical Management per primary service. (3) Chest pain: Code(s): R07.9 - Chest pain, unspecified Status: Acute Assessment and Plan: Atypical, worse with coughing deep breathing most likely musculoskeletal etiology. Troponins negative, EKG without new acute ischemic changes. (4) COPD exacerbation: Code(s): J44.1 - Chronic obstructive pulmonary disease with (acute) exacerbation Status: Acute Assessment and Plan: Better with nebulizer treatments, steroids now worsening symptoms with COVID Management per primary service. (5) CAP (community acquired pneumonia): Code(s): J18.9 - Pneumonia, unspecified organism Status: Acute Assessment and Plan: Abx, supportive care, supplemental O2. Management per primary service. (6) Tobacco abuse: Code(s): Z72.0 - Tobacco use Status: Chronic Assessment and Plan: Smoking cessation. Patient continues to smoke despite known underlying COPD. Subjective Date/time seen: 08/28/21 08:49 Interval history: Cardiology follow up for atrial fibrillation Date of service 08/28/2021: He feels okay today. He says that his breathing today is a little bit worse. He is denying any chest pain but does say that he feels a racing heartbeat occasionally. He had some bradycardia overnight so his diltiazem was paused which resulted in tachycardia. Size and was resumed at 5 and then up titrated to 10mg/hr. Review of Systems Review of Systems: All systems reviewed & are unremarkable except as noted in HPI and below Constitutional: Constitutional: Reports as per HPI, Denies excessive sweating, Denies fatigue, Denies headache(s), Reports lethargy and Reports weakness Eyes: Eyes: Reports as per HPI and Denies change in vision ENT: Reports as per HPI, Reports Normal hearing present, Denies headache(s) and Denies neck pain Cardiovascular: Cardiovascular: Reports as per HPI, Reports chest pain, Denies lightheadedness, Reports palpitations, Reports dyspnea and Reports dyspnea on exertion Respiratory: Respiratory: Reports as per HPI, Reports cough, Reports dyspnea, Reports dyspnea on exertion and Reports wheezing Gastrointestinal: Gastrointestinal: Reports as per HPI, Denies melena, Denies constipation and Denies diarrhea Genitourinary: Genitourinary: Reports as per HPI and Denies dysuria Musculoskeletal: Musculoskeletal: Reports as per HPI, Denies back pain, Denies myalgias and Denies neck pain Integumentary/Breasts: Skin/Breast: Reports as per HPI, Denies dry skin and Denies unusual bruising Neurologic: Reports as per HPI, Reports Normal hearing present, Denies confusion, Denies headache(s) and Reports weakness Psychiatric: Psychiatric: Reports as per HPI, Reports anxiety, Denies confusion and Denies depression Endocrine: Endocrine: Reports as per HPI, Denies excessi
[2021-08-28] MEDS: TAMSULOSIN HCL 0.4 MG CAPSULE PO (09:08)
[2021-08-28] MEDS: ROFLUMILAST 500 MCG TABLET PO (09:08)
[2021-08-28] MEDS: BENZONATATE 100 MG CAPSULE PO ×2 (09:08→16:28)
--- NOTE | 2021-08-28 14:11 | PM.IMPN ---
Progress Note: A&P Assessment and Plan (1) CAP (community acquired pneumonia): Code(s): J18.9 - Pneumonia, unspecified organism Status: Acute Assessment and Plan: Bilateral lower lobe pneumonia noted on CT a and chest x-ray Continue ceftriaxone azithromycin Continue albuterol BC and sputum culture are negative to date. Sputum culture with growth of normal oropharyngeal abebe Granddaughter tested positive for COVID IgG IgM antibody came back positive the RT PCR was negative (2) Hypertension: Code(s): I10 - Essential (primary) hypertension Status: Chronic Assessment and Plan: Stable continue home medication (3) Tobacco abuse: Code(s): Z72.0 - Tobacco use Status: Chronic Assessment and Plan: Cessation advised (4) Chronic respiratory failure with hypoxia and hypercapnia: Code(s): J96.11 - Chronic respiratory failure with hypoxia; J96.12 - Chronic respiratory failure with hypercapnia Status: Chronic Assessment and Plan: Acute on chronic respiratory failure with hypoxia and hypercapnia placed on BiPAP on admission no hypercapnia noted this Chest x-ray with pneumonia underlying severe COPD Recent CTA shows pulmonary artery hypertension cardiomegaly and small to moderate bilateral pleural effusion RPt CTA -1. No pulmonary embolus. 2. Worsening pneumonia involving the lower lobes and right middle lobe. 3. Severe emphysema. 4. Small pleural effusions. 5. Mild bilateral hilar lymphadenopathy, likely reactive. 6. Small volume of ascites. (5) Benign prostate hyperplasia: Code(s): N40.0 - Benign prostatic hyperplasia without lower urinary tract symptoms Status: Chronic Assessment and Plan: Resume home meds (6) COPD exacerbation: Code(s): J44.1 - Chronic obstructive pulmonary disease with (acute) exacerbation Status: Acute Assessment and Plan: Severe COPD with exacerbation Continue methylprednisolone to taper Albuterol prn oxygen iv rocephin and iv zithromax (7) Bilateral lower extremity edema: Code(s): R60.0 - Localized edema Status: Resolved Assessment and Plan: Resolving Recent CTA with cardiomegaly pulmonary artery hypertension and anasarca with small to moderate bilateral pleural effusion noted Echocardiogram on 08/24/2021 with ejection fraction 45-55% indeterminate diastolic function mild pulmonary hypertension left atrium and right atrium moderately enlarged (8) Anemia: Code(s): D64.9 - Anemia, unspecified Status: Acute Assessment and Plan: Hb is 9 (9) Person under investigation for COVID-19: Code(s): Z20.822 - Contact with and (suspected) exposure to COVID-19 Status: Acute Assessment and Plan: Family with COVID Pt is high risk pt will need isolation and COVID swab COVID swab artery PCR was negative however IgG IgM was positive (10) COVID: Code(s): U07.1 - COVID-19 Status: Acute Assessment and Plan: Continue oxygenation, supportive care, prone positioning and iv steroids and lovenox Will switch Solu-Medrol to Decadron due to COVID positive Will also start remdesivir (11) Atrial fibrillation: Code(s): I48.91 - Unspecified atrial fibrillation Status: Acute Assessment and Plan: Month on diltiazem drip Cardiology consulted and following appreciate their recommendation On Xarelto Subjective Date/time seen: 08/28/21 14:11 Interval history: 76-year-old male who presents to the ER with shortness of breath. He was recently discharged from the hospital about 2 weeks ago on oxygen 5-6 L via nasal cannula. He has been having increased shortness of breath and cough over the past few days. No fever or chills. He also reported lower extremity edema but no chest pain or pressure. Pt has been running Af with RVR yesteday heart rate is in the 80s now. EKG ordered, metoprolol ordered, cardiology consulted yesterd
[2021-08-28 15:16] LABS: Alanine Aminotransferase 127 U/L (4-50); Estimated CRCL calculation 80 ml/min; Estimated Glomerular Filt Rate > 60
[2021-08-28 15:22] LABS: INR 1.5; Prothrombin Time 17.9 Seconds (11.1-14.7)
[2021-08-28 15:26] LABS: NT Pro B Type Natriuretic Pept 6790 pg/mL (5-100)
--- NOTE | 2021-08-28 15:46 | PCPTNOTE ---
Attempted to see patient for Physical Therapy this afternoon. Patient declined to participate in Physical Therapy this afternoon secondary to having a hard time breathing. Patient was on 8 L of O2. Patient stated that he breaths better if he has saline. RN notified and said she would get him some saline.
[2021-08-28] MEDS: REMDESIVIR 200 MG/NS 250 ML 200 MG/250 ML BAG 250 MG IVPB (16:28)
[2021-08-28] MEDS: RIVAROXABAN 20 MG TABLET PO (16:28)
[2021-08-28] MEDS: FUROSEMIDE INJ 40 MG/4 ML VIAL 20 MG IV PUSH (16:28)
[2021-08-28 17:53] LABS: CRP 1.6 mg/dL (<1.0); Lactate Dehydrogenase 528 U/L (313-618)
[2021-08-28] MEDS: dilTIAZem HCL 60 MG TABLET PO (17:54)
[2021-08-28] MEDS: SODIUM CHLORIDE NASAL GEL 14.1 GM 1 APPLIC NASAL (21:01)
[2021-08-28] MEDS: HYDROcodone/acetaminophen (*CRX) 5-325 MG TABLET 1 TAB PO (21:01)
[2021-08-28] MEDS: MELATONIN 5 MG TABLET 10 MG PO (21:01)
[2021-08-29] VITALS (16 sets, daily range): BP systolic 105–133; BP diastolic 55–76; PULSE 71–101; RESP 20–24; TEMP 36–36.9; O2SAT 91–98
[2021-08-29] MEDS: ALBUTEROL SULFATE (*SP) AEROSOL 1 PUFF 2 PUFF INHALATION ×6 (00:15→21:29)
[2021-08-29] MEDS: dilTIAZem HCL 60 MG TABLET PO ×4 (01:14→18:15)
[2021-08-29 05:46] LABS: Basophils Percent Auto 0.1 % (0.2-1.2); Hematocrit 31.4 % (42.0-52.0); Hemoglobin 10.5 g/dL (14.0-18.0); Immature Granulocyte Absolute 0.08 K/mm3 (0.00-0.031); Immature Granulocyte Percent A 1.2 % (0-0.5); Lymphocytes Absolute Auto 0.24 K/mm3 (0.9-3.2); Lymphocytes Percent Auto 3.5 % (18.3-44.2); Mean Corpuscular HGB Conc 33.4 g/dl (32-36); Mean Corpuscular Hemoglobin 31.4 pg (26-34); Mean Platelet Volume 9.6 fl (7.4-10.4); Monocytes Absolute Auto 0.1 K/mm3 (0.1-0.6); Monocytes Percent Auto 2.1 % (2.6-8.5); Neutrophils Absolute Auto 6.3 K/mm3 (1.3-6.7); Neutrophils Percent Auto 93.1 % (45.5-73.1); Platelet Count Result 235 k/mm3 (150-375); Red Blood Count 3.34 M/mm3 (4.6-6.20); Red Cell Distribution Width 16.2 % (11.5-14.5); White Blood Count 6.8 K/mm3 (4.5-10.0)
[2021-08-29 06:02] LABS: INR 1.7; Prothrombin Time 19.5 Seconds (11.1-14.7)
[2021-08-29 06:06] LABS: Alanine Aminotransferase 110 U/L (4-50); Albumin Level 2.8 g/dL (3.5-5.1); Alkaline Phosphatase 64 U/L (38-126); Anion Gap 4 mmol/L (8-16); Aspartate Amino Transferase 40 U/L (17-59); Bilirubin,Total 0.3 mg/dL (0.2-1.3); Blood Urea Nitrogen 39 mg/dL (9-20); Calcium 8.4 mg/dL (8.4-10.2); Carbon Dioxide 32 mmol/L (22-30); Chloride 94 mmol/L (98-107); Estimated CRCL calculation 70 ml/min; Estimated Glomerular Filt Rate > 60; Glucose 194 mg/dL (65-110); Sodium 130 mmol/L (137-145)
--- NOTE | 2021-08-29 09:00 | PM.PNCARD ---
Progress Note: A&P Assessment and Plan (1) Atrial fibrillation: Code(s): I48.91 - Unspecified atrial fibrillation <PEDRITO Donnelly - Last Filed: 08/29/21 09:14> Status: Acute <Katya DayMendy PEDRITO Bailey - Last Filed: 08/29/21 09:14> Assessment and Plan: New onset during this hospitalization. Secondary to acute illness with pneumonia, chronic lung disease and COVID positive. He denies any history of atrial fibrillation. He has been transitioned to oral diltiazem and rate has remained well controlled with this, rate mostly in the 80's and 90's. He has already been started on systemic anticoagulation. He has a JRSGl1RUFl score of 3 (age >75, HTN), anticoagulation is indicated. He denies having previous bleeding history or any history of falls. Continue Xarelto 20mg daily, monitor for bleeding. <PEDRITO Donnelly - Last Filed: 08/29/21 09:14> (2) COVID: Code(s): U07.1 - COVID-19 <PEDRITO Donnelly - Last Filed: 08/29/21 09:14> Status: Acute <PEDRITO Donnelly - Last Filed: 08/29/21 09:14> Assessment and Plan: As above, patient is currently on isolation. Medical Management per primary service. <PEDRITO Donnelly - Last Filed: 08/29/21 09:14> (3) Chest pain: Code(s): R07.9 - Chest pain, unspecified <PEDRITO Donnelly - Last Filed: 08/29/21 09:14> Status: Acute <PEDRITO Donnelly - Last Filed: 08/29/21 09:14> Assessment and Plan: Atypical, worse with coughing deep breathing most likely musculoskeletal etiology. Troponins negative, EKG without new acute ischemic changes. <PEDRITO Donnelly - Last Filed: 08/29/21 09:14> (4) COPD exacerbation: Code(s): J44.1 - Chronic obstructive pulmonary disease with (acute) exacerbation <PEDRITO Donnelly - Last Filed: 08/29/21 09:14> Status: Acute <PEDRITO Donnelly - Last Filed: 08/29/21 09:14> Assessment and Plan: Better with nebulizer treatments, steroids now worsening symptoms with COVID Management per primary service. <PEDRITO Donnelly - Last Filed: 08/29/21 09:14> (5) CAP (community acquired pneumonia): Code(s): J18.9 - Pneumonia, unspecified organism <PEDRITO Donnelly - Last Filed: 08/29/21 09:14> Status: Acute <PEDRITO Donnelly - Last Filed: 08/29/21 09:14> Assessment and Plan: supportive care, supplemental O2. Management per primary service. <PEDRITO Donnelly - Last Filed: 08/29/21 09:14> (6) Tobacco abuse: Code(s): Z72.0 - Tobacco use <PEDRITO Donnelly - Last Filed: 08/29/21 09:14> Status: Chronic <PEDRITO Donnelly - Last Filed: 08/29/21 09:14> Assessment and Plan: Smoking cessation. Patient continues to smoke despite known underlying COPD. <PEDRITO Donnelly - Last Filed: 08/29/21 09:14> Additional Plan I personally saw and evaluated the patient. I reviewed Katya Bailey's note and agree with findings and plan of care as documented in the note. <Derian Myles MD - Last Filed: 08/29/21 11:40> Subjective Date/time seen: 08/29/21 09:00 <PEDRITO Donnelly - Last Filed: 08/29/21 09:14> Interval history: Cardiology follow up for atrial fibrillation Date of service 08/28/2021: He feels okay today. He says that his breathing today is a little bit worse. He is denying any chest pain but does say that he feels a racing heartbeat occasionally. He had some bradycardia overnight so his diltiazem was paused which resulted in tachycardia. Diltiazem was resumed at 5 and then up titrated to 10mg/hr. Date of service 08/29/2021: Feels about the same today. Remains on 8L O2 per nasal cannula. Denies any palpitations, chest pain. <Katya Bailey APN-C - Last Filed: 08/29/21 09:14> Review of Systems Review of Systems: All systems reviewed & are unremarkable except as noted in HPI an
[2021-08-29] MEDS: BENZONATATE 100 MG CAPSULE PO ×3 (10:23→18:15)
[2021-08-29] MEDS: ROFLUMILAST 500 MCG TABLET PO (10:24)
[2021-08-29] MEDS: TAMSULOSIN HCL 0.4 MG CAPSULE PO (10:24)
[2021-08-29] MEDS: REMDESIVIR 100 MG/NS 250 ML 100 MG/250 ML BAG 250 MG IVPB (11:36)
[2021-08-29] MEDS: HYDROcodone/acetaminophen (*CRX) 5-325 MG TABLET 1 TAB PO ×2 (13:24→20:12)
--- NOTE | 2021-08-29 14:18 | PM.IMPN ---
Progress Note: A&P Assessment and Plan (1) CAP (community acquired pneumonia): Code(s): J18.9 - Pneumonia, unspecified organism Status: Acute Assessment and Plan: Bilateral lower lobe pneumonia noted on CT a and chest x-ray Continue ceftriaxone azithromycin Continue albuterol BC and sputum culture are negative to date. Sputum culture with growth of normal oropharyngeal abebe Granddaughter tested positive for COVID (2) Hypertension: Code(s): I10 - Essential (primary) hypertension Status: Chronic Assessment and Plan: Stable continue home medication (3) Tobacco abuse: Code(s): Z72.0 - Tobacco use Status: Chronic Assessment and Plan: Cessation advised (4) Chronic respiratory failure with hypoxia and hypercapnia: Code(s): J96.11 - Chronic respiratory failure with hypoxia; J96.12 - Chronic respiratory failure with hypercapnia Status: Chronic Assessment and Plan: Acute on chronic respiratory failure with hypoxia and hypercapnia placed on BiPAP on admission no hypercapnia noted this Chest x-ray with pneumonia underlying severe COPD Recent CTA shows pulmonary artery hypertension cardiomegaly and small to moderate bilateral pleural effusion RPt CTA -1. No pulmonary embolus. 2. Worsening pneumonia involving the lower lobes and right middle lobe. 3. Severe emphysema. 4. Small pleural effusions. 5. Mild bilateral hilar lymphadenopathy, likely reactive. 6. Small volume of ascites. (5) Benign prostate hyperplasia: Code(s): N40.0 - Benign prostatic hyperplasia without lower urinary tract symptoms Status: Chronic Assessment and Plan: Resume home meds (6) COPD exacerbation: Code(s): J44.1 - Chronic obstructive pulmonary disease with (acute) exacerbation Status: Acute Assessment and Plan: Severe COPD with exacerbation Continue methylprednisolone to taper Albuterol prn oxygen iv rocephin and iv zithromax (7) Bilateral lower extremity edema: Code(s): R60.0 - Localized edema Status: Resolved Assessment and Plan: Resolving Recent CTA with cardiomegaly pulmonary artery hypertension and anasarca with small to moderate bilateral pleural effusion noted Echocardiogram on 08/24/2021 with ejection fraction 45-55% indeterminate diastolic function mild pulmonary hypertension left atrium and right atrium moderately enlarged (8) Anemia: Code(s): D64.9 - Anemia, unspecified Status: Acute Assessment and Plan: Hb is 9 (9) Person under investigation for COVID-19: Code(s): Z20.822 - Contact with and (suspected) exposure to COVID-19 Status: Acute Assessment and Plan: Family with COVID COVID POSITIVE (10) COVID: Code(s): U07.1 - COVID-19 Status: Acute Assessment and Plan: Continue oxygenation, supportive care, prone positioning and iv steroids and lovenox Will switch Solu-Medrol to Decadron due to COVID positive Will also start remdesivir Pt oxygen requirement worsened i will consult pulmonology. (11) Atrial fibrillation: Code(s): I48.91 - Unspecified atrial fibrillation Status: Acute Assessment and Plan: on oral diltiazem AF is controlled now Cardiology consulted and following appreciate their recommendation On Xarelto Subjective Date/time seen: 08/29/21 14:18 Interval history: 76-year-old male who presents to the ER with shortness of breath. He was recently discharged from the hospital about 2 weeks ago on oxygen 5-6 L via nasal cannula. He has been having increased shortness of breath and cough over the past few days. No fever or chills. He also reported lower extremity edema but no chest pain or pressure. Pt has been running Af with RVR yesteday heart rate is in the 80s now. EKG ordered, metoprolol ordered, cardiology consulted yesterday . Pt has history of COPD with chronic respiratory failure on home oxygen. CAP
--- NOTE | 2021-08-29 15:44 | PM.CNPUL ---
Assessment and Plan Assessment and plan (1) Pneumonia due to COVID-19 virus: Code(s): U07.1 - COVID-19; J12.82 - Pneumonia due to coronavirus disease 2019 Status: Acute Assessment and Plan: Patient tested positive for COVID-19 on 08/28 And has family contact that is also positive for COVID.. Started on remdesivir, dexamethasone on 08/28. Emperically on ceftriaxone and azithromycin. if he requires high-flow nasal cannula oxygen he would benefit from tocilizumab or baricitinib. - Remdesivir for 10 days Unless he should recover and tolerate room air with rest, ambulation and while sleeping. - Dexamethasone 6 mg IV for 10 days - Continuous pulse oximetry - Prone positioning as tolerated. - Avoid any fluid overload. - emperic azihtromycin and ceftraixone for CAP. Would complete 5 days of azithromycin and 7 days of ceftriaxone. - Albuterol inhaler Q 4 for now, no wheezes. Keep saturations are 90-94% with nasal cannula to 15 L, if fails then Airvo high flow nasal cannula. I discussed code status with patient and he does not wish to be intubated and does not wish to be placed on BiPAP. (2) Respiratory failure with hypoxia: Code(s): J96.91 - Respiratory failure, unspecified with hypoxia Status: Acute Assessment and Plan: Etiology of hypoxic respiratory failure is likely COVID pneumonia. Patient does have an elevated BNP and is hemodynamically stable and I will give 1 dose of Lasix now. New onset Afib and cardiology following. 08/22 16:31 p.m. patient placed on BiPAP. 08/23 10:28 patient off BiPAP on 5 L nasal cannula sats 96%. 08/27 20:00 8 L nasal cannula with sats 93%. 08/28 08:00 8 L nasal cannula with sats 92%. 08/29 08:13 8 L nasal cannula with sats 93%. 08/29 12:00 10 L nasal cannula with sats 98%. 08/29 16:00 8 L nasal cannula with sats 96% Will follow with you. History of Present Illness History of Present Illness Consult date: 08/29/21 Chief complaint: Pneumonia, COPD Narrative: This is a new Pulmonary consult for COVID pneumonia with hypoxemia patient with a history of tobacco use, severe panlobular emphysema on a CT scan and a diagnosis of COPD on 2 L at rest and 4 with ambulation presented to the hospital on 08/22/2021 with shortness of breath and cough. Patient was treated for COPD exacerbation and had an initial RT PCR test for COVID that was negative. Patient had a rapid point of care COVID test on for that was positive. Patient tells me that his daughter and 2 granddaughters that he lives with are symptomatic and 1 of them is also tested positive for COVID. He also lives with his is asymptomatic at this time. Patient had a Pfizer vaccine he says 1 shot in July at some time but then was unable to get a 2nd shot. Patient was admitted to the hospital and treated with steroids, bronchodilators and ceftriaxone and azithromycin for pneumonia. He was hypoxemic and initially placed on BiPAP on 08/22 and wore BiPAP overnight until 08 23 at 10:25 a.m. 8 in the morning. At that time he was switched to 5 L nasal cannula. On 08/27 at 20 100 he was switched 8 L nasal cannula and he has remained on 8 L nasal cannula until 12 7 when he had desats and was increased to [address] a [address] angiogram of the chest on 08/25 that demonstrated no PE, severe panlobular emphysema and bibasilar infiltrates. Patient was started on dexamethasone on 08/28 and REMdesivir on 08/28. when I saw the patient currently he was on 10 L nasal cannula in no respiratory distress with saturations 99%. I decreased him to 8 L nasal cannula and his saturations remained 96%. Overall the patient's tells me that he is breathing better than when he came to the hospital. He denies any fever, chills, rigors. He has minimal production of clear to pink phlegm. DATA: EXAMINATION: CTA chest PE protocol DATE: 08/25/2021 23:41 INDICATION: Midsternal
[2021-08-29] MEDS: RIVAROXABAN 20 MG TABLET PO (18:15)
[2021-08-29] MEDS: MELATONIN 5 MG TABLET 10 MG PO (20:13)
[2021-08-29] MEDS: SODIUM CHLORIDE NASAL GEL 14.1 GM 1 APPLIC NASAL (20:20)
[2021-08-30] VITALS (16 sets, daily range): BP systolic 116–127; BP diastolic 56–72; PULSE 70–100; RESP 20–24; TEMP 36.3–37.2; O2SAT 90–100
[2021-08-30] MEDS: dilTIAZem HCL 60 MG TABLET PO ×5 (00:21→23:18)
[2021-08-30] MEDS: ALBUTEROL SULFATE (*SP) AEROSOL 1 PUFF 2 PUFF INHALATION ×5 (01:52→20:44)
[2021-08-30 05:46] LABS: INR 2.5; Prothrombin Time 26.1 Seconds (11.1-14.7)
[2021-08-30 05:56] LABS: Alanine Aminotransferase 86 U/L (4-50); Albumin Level 2.6 g/dL (3.5-5.1); Alkaline Phosphatase 64 U/L (38-126); Anion Gap 5 mmol/L (8-16); Aspartate Amino Transferase 26 U/L (17-59); Bilirubin,Total 0.5 mg/dL (0.2-1.3); Blood Urea Nitrogen 41 mg/dL (9-20); Calcium 8.3 mg/dL (8.4-10.2); Carbon Dioxide 32 mmol/L (22-30); Chloride 97 mmol/L (98-107); Estimated CRCL calculation 70 ml/min; Estimated Glomerular Filt Rate > 60; Glucose 173 mg/dL (65-110); Potassium 4.1 mmol/L (3.4-5.0); Sodium 134 mmol/L (137-145)
--- NOTE | 2021-08-30 06:32 | PCRCNOTE ---
Window of time for administration has passed. See next scheduled administration.
[2021-08-30] MEDS: ACETAMINOPHEN 325 MG TABLET 650 MG PO ×2 (08:39→20:35)
[2021-08-30] MEDS: BENZONATATE 100 MG CAPSULE PO ×3 (08:39→17:08)
[2021-08-30] MEDS: TAMSULOSIN HCL 0.4 MG CAPSULE PO (09:56)
[2021-08-30] MEDS: REMDESIVIR 100 MG/NS 250 ML 100 MG/250 ML BAG 250 MG IVPB (09:57)
[2021-08-30] MEDS: ROFLUMILAST 500 MCG TABLET PO (09:57)
--- NOTE | 2021-08-30 10:55 | PM.PNPUL ---
Progress Note: A&P Assessment and Plan (1) Pneumonia due to COVID-19 virus: Code(s): U07.1 - COVID-19; J12.82 - Pneumonia due to coronavirus disease 2019 Status: Acute Assessment and Plan: 08/29 Patient with severe COPD on 2 L at ret and 4 with activity but using 5-7 L at home over the last few weeks tested positive for COVID-19 on 08/28 And has family contact that is also positive for COVID.. Started on remdesivir, dexamethasone on 08/28. Emperically on ceftriaxone and azithromycin. if he requires high-flow nasal cannula oxygen he would benefit from tocilizumab or baricitinib. - Remdesivir for 10 days Unless he should recover and tolerate room air with rest, ambulation and while sleeping. - Dexamethasone 6 mg IV for 10 days - Continuous pulse oximetry - Prone positioning as tolerated. - Avoid any fluid overload. - emperic azihtromycin and ceftraixone for CAP. Would complete 5 days of azithromycin and 7 days of ceftriaxone. DC on 08/30. - Albuterol inhaler Q 4 for now, no wheezes. - Will check influenza swab. Keep saturations are 90-94% with nasal cannula up to 15 L, if fails then Airvo high flow nasal cannula. I discussed code status with patient and he does not wish to be intubated and does not wish to be placed on BiPAP. 08/30 Clinically he is slowly improving. 08/30 Patient states he is slowly getting better. He states he is better than yesterday and today he has no cough and no phlegm production. Currently the patient is on 10 L nasal cannula saturations 95%. There are no wheezes. He has received 7 days of azithromycin and ceftriaxone and I will discontinue them today. He is on day 2 dexamethasone and remdesivir. Today the patient confirmed that his daughter and granddaughter that he lives with have tested positive for COVID. chest x-ray with increased interstitial and alveolar infiltrates compared to 08/26. (2) Respiratory failure with hypoxia: Code(s): J96.91 - Respiratory failure, unspecified with hypoxia Status: Acute Assessment and Plan: Etiology of hypoxic respiratory failure is likely COVID pneumonia. New onset Afib and cardiology following. 08/22 16:31 p.m. patient placed on BiPAP. 08/23 10:28 patient off BiPAP on 5 L nasal cannula sats 96%. 08/27 20:00 8 L nasal cannula with sats 93%. 08/28 08:00 8 L nasal cannula with sats 92%. 08/29 08:13 8 L nasal cannula with sats 93%. 08/29 12:00 10 L nasal cannula with sats 98%. 08/29 16:00 8 L nasal cannula with sats 96% 08/30 08:00 10 L nasal cannula with sats 94% Keep saturations are 90-94% with nasal cannula up to 15 L, if fails then Airvo high flow nasal cannula and tocilizumab or baricitinib. I discussed code status with patient and he does not wish to be intubated and does not wish to be placed on BiPAP. Patient should have home O2 assessment an overnight oximetry prior to discharge to determine his oxygen needs. Patient should have chest x-ray prior to discharge to serve as a new baseline. Discussed with Dr. Khoury, will sign off, call with worsening oxygenation or with any additinal questions. Subjective Date/time seen: 08/30/21 10:55 Interval history: 08/29/21 Chief complaint: Pneumonia, COPD Narrative: This is a new Pulmonary consult for COVID pneumonia with hypoxemia patient with a history of tobacco use, severe panlobular emphysema on a CT scan and a diagnosis of COPD on 2 L at rest and 4 with ambulation presented to the hospital on 08/22/2021 with shortness of breath and cough. Patient was treated for COPD exacerbation and had an initial RT PCR test for COVID that was negative. Patient had a rapid point of care COVID test on for that was positive. Patient tells me that his daughter and 2 granddaughters that he lives with are symptomatic and 1 of them is also tested positive for COVID. He also lives with his is asymptomatic at this time. Patient had a eXelate vaccine he says 1 shot in July at s
[2021-08-30] MEDS: HYDROcodone/acetaminophen (*CRX) 5-325 MG TABLET 1 TAB PO (11:12)
--- NOTE | 2021-08-30 11:12 | PM.PNCARD ---
Progress Note: A&P Assessment and Plan (1) Atrial fibrillation: Code(s): I48.91 - Unspecified atrial fibrillation Status: Acute Assessment and Plan: New onset during this hospitalization. Secondary to acute illness with pneumonia, chronic lung disease and COVID positive. He denies any history of atrial fibrillation. He has been transitioned to oral diltiazem and rate has remained well controlled with this, rate mostly in the 80's and 90's. He has already been started on systemic anticoagulation. He has a [id number] score of 3 (age >75, HTN), anticoagulation is indicated. He denies having previous bleeding history or any history of falls. Continue Xarelto 20mg daily, monitor for bleeding. I have no idea why he is having daily INRs drawn given the fact he is on Xarelto. Will discontinue these daily INR tests. Transition to long-acting diltiazem within the next day or 2 (2) COVID: Code(s): U07.1 - COVID-19 Status: Acute Assessment and Plan: As above, patient is currently on isolation. Medical Management per primary service. (3) Chest pain: Code(s): R07.9 - Chest pain, unspecified Status: Acute Assessment and Plan: Atypical, worse with coughing deep breathing most likely musculoskeletal etiology. Troponins negative, EKG without new acute ischemic changes. (4) COPD exacerbation: Code(s): J44.1 - Chronic obstructive pulmonary disease with (acute) exacerbation Status: Acute Assessment and Plan: Better with nebulizer treatments, steroids now worsening symptoms with COVID Management per primary service. (5) CAP (community acquired pneumonia): Code(s): J18.9 - Pneumonia, unspecified organism Status: Acute Assessment and Plan: supportive care, supplemental O2. Management per primary service. (6) Tobacco abuse: Code(s): Z72.0 - Tobacco use Status: Chronic Assessment and Plan: Smoking cessation. Patient continues to smoke despite known underlying COPD. Subjective Date/time seen: 08/30/21 11:12 Interval history: Cardiology follow up for atrial fibrillation Date of service 08/28/2021: He feels okay today. He says that his breathing today is a little bit worse. He is denying any chest pain but does say that he feels a racing heartbeat occasionally. He had some bradycardia overnight so his diltiazem was paused which resulted in tachycardia. Diltiazem was resumed at 5 and then up titrated to 10mg/hr. Date of service 08/29/2021: Feels about the same today. Remains on 8L O2 per nasal cannula. Denies any palpitations, chest pain. Date of service 08/30/2021: No chest pain. Breathing seems a little better today. Overall feels a little bit better. Review of Systems Review of Systems: All systems reviewed & are unremarkable except as noted in HPI and below Constitutional: Constitutional: Reports as per HPI, Denies excessive sweating, Denies fatigue, Denies headache(s), Reports lethargy and Reports weakness Eyes: Eyes: Reports as per HPI and Denies change in vision ENT: Reports as per HPI, Reports Normal hearing present, Denies headache(s) and Denies neck pain Cardiovascular: Cardiovascular: Reports as per HPI, Reports chest pain, Denies lightheadedness, Reports palpitations, Reports dyspnea and Reports dyspnea on exertion Respiratory: Respiratory: Reports as per HPI, Reports cough, Reports dyspnea, Reports dyspnea on exertion and Reports wheezing Gastrointestinal: Gastrointestinal: Reports as per HPI, Denies melena, Denies constipation and Denies diarrhea Genitourinary: Genitourinary: Reports as per HPI and Denies dysuria Musculoskeletal: Musculoskeletal: Reports as per HPI, Denies back pain, Denies myalgias and Denies neck pain Integumentary/Breasts: Skin/Breast: Reports as per HPI, Denies dry skin and Denies unusual bruising Neurologic: Reports as per HPI, Reports Normal hearing present, Denies confusion, Den
[2021-08-30 12:11] LABS: Influenza Control Positive
--- NOTE | 2021-08-30 12:48 | PCNWS ---
Weekly nutritional screen. Patient is tolerating current diet with adequate intake. No weight loss reported. No nutritional needs at this time.
--- NOTE | 2021-08-30 14:45 | PM.IMPN ---
Progress Note: A&P Assessment and Plan (1) CAP (community acquired pneumonia): Code(s): J18.9 - Pneumonia, unspecified organism Status: Acute Assessment and Plan: Bilateral lower lobe pneumonia noted on CTA and chest x-ray Completed IV ceftriaxone azithromycin can stop Continue albuterol BC and sputum culture are negative to date. Sputum culture with growth of normal oropharyngeal abebe Granddaughter tested positive for COVID (2) Hypertension: Code(s): I10 - Essential (primary) hypertension Status: Chronic Assessment and Plan: Stable continue home medication (3) Tobacco abuse: Code(s): Z72.0 - Tobacco use Status: Chronic Assessment and Plan: Cessation advised (4) Chronic respiratory failure with hypoxia and hypercapnia: Code(s): J96.11 - Chronic respiratory failure with hypoxia; J96.12 - Chronic respiratory failure with hypercapnia Status: Chronic Assessment and Plan: Acute on chronic respiratory failure with hypoxia and hypercapnia placed on BiPAP on admission pt has history of COPD wearing oxygen at home Recent CTA shows pulmonary artery hypertension cardiomegaly and small to moderate bilateral pleural effusion RPt CTA -1. No pulmonary embolus. 2. Worsening pneumonia involving the lower lobes and right middle lobe. 3. Severe emphysema. 4. Small pleural effusions. 5. Mild bilateral hilar lymphadenopathy, likely reactive. 6. Small volume of ascites. (5) Benign prostate hyperplasia: Code(s): N40.0 - Benign prostatic hyperplasia without lower urinary tract symptoms Status: Chronic Assessment and Plan: Resume home meds (6) COPD exacerbation: Code(s): J44.1 - Chronic obstructive pulmonary disease with (acute) exacerbation Status: Acute Assessment and Plan: Severe COPD with exacerbation Continue methylprednisolone to taper Albuterol prn oxygen (7) Bilateral lower extremity edema: Code(s): R60.0 - Localized edema Status: Resolved Assessment and Plan: Resolving Recent CTA with cardiomegaly pulmonary artery hypertension and anasarca with small to moderate bilateral pleural effusion noted Echocardiogram on 08/24/2021 with ejection fraction 45-55% indeterminate diastolic function mild pulmonary hypertension left atrium and right atrium moderately enlarged (8) Anemia: Code(s): D64.9 - Anemia, unspecified Status: Acute Assessment and Plan: Hb is 9 (9) Person under investigation for COVID-19: Code(s): Z20.822 - Contact with and (suspected) exposure to COVID-19 Status: Acute Assessment and Plan: Family with COVID COVID POSITIVE (10) COVID: Code(s): U07.1 - COVID-19 Status: Acute Assessment and Plan: Continue oxygenation, supportive care, prone positioning and iv steroids and lovenox Will switch Solu-Medrol to Decadron due to COVID positive Continue remedesivir pulmology advices up to 10 days of treatment. (11) Atrial fibrillation: Code(s): I48.91 - Unspecified atrial fibrillation Status: Acute Assessment and Plan: on oral diltiazem AF is controlled now Cardiology consulted and following appreciate their recommendation On Xarelto for anticoagulation Af more stable now Subjective Date/time seen: 08/30/21 14:45 Interval history: 76-year-old male who presents to the ER with shortness of breath. He was recently discharged from the hospital about 2 weeks ago on oxygen 5-6 L via nasal cannula. He has been having increased shortness of breath and cough over the past few days. No fever or chills. He also reported lower extremity edema but no chest pain or pressure. Pt has been running Af with RVR yesteday heart rate is in the 80s now. EKG ordered, metoprolol ordered, cardiology consulted yesterday . Pt has history of COPD with chronic respiratory failure on home oxygen. CAP tobacco abuse. Pt is mitch
[2021-08-30] MEDS: RIVAROXABAN 20 MG TABLET PO (17:08)
[2021-08-30] MEDS: MELATONIN 5 MG TABLET 10 MG PO (20:34)
[2021-08-30] MEDS: SODIUM CHLORIDE NASAL GEL 14.1 GM 1 APPLIC NASAL (20:36)
[2021-08-31] VITALS (16 sets, daily range): BP systolic 101–126; BP diastolic 58–84; PULSE 71–112; RESP 20–28; TEMP 36.1–37.2; O2SAT 90–97
[2021-08-31] MEDS: ALBUTEROL SULFATE (*SP) AEROSOL 1 PUFF 2 PUFF INHALATION ×6 (00:05→20:31)
[2021-08-31 05:29] LABS: Alanine Aminotransferase 73 U/L (4-50); Estimated CRCL calculation 80 ml/min; Estimated Glomerular Filt Rate > 60
[2021-08-31] MEDS: dilTIAZem HCL 60 MG TABLET PO ×3 (05:44→17:49)
[2021-08-31] MEDS: HYDROcodone/acetaminophen (*CRX) 5-325 MG TABLET 1 TAB PO (05:45)
[2021-08-31] MEDS: BENZONATATE 100 MG CAPSULE PO ×3 (09:17→17:49)
[2021-08-31] MEDS: ROFLUMILAST 500 MCG TABLET PO (09:17)
[2021-08-31] MEDS: TAMSULOSIN HCL 0.4 MG CAPSULE PO (09:17)
[2021-08-31 10:10] LABS: INR 1.5; Prothrombin Time 17.5 Seconds (11.1-14.7)
--- NOTE | 2021-08-31 11:04 | PM.PNCARD ---
Progress Note: A&P Assessment and Plan (1) Atrial fibrillation: Code(s): I48.91 - Unspecified atrial fibrillation Status: Acute Assessment and Plan: New onset during this hospitalization. Secondary to acute illness with pneumonia, chronic lung disease and COVID positive. He denies any history of atrial fibrillation. He has been transitioned to oral diltiazem and rate has remained well controlled with this, rate mostly in the 80's and 90's. He has already been started on systemic anticoagulation. He has a [id number] score of 3 (age >75, HTN), anticoagulation is indicated. He denies having previous bleeding history or any history of falls. Continue Xarelto 20mg daily, monitor for bleeding. Transition to long-acting diltiazem within the next day or 2 (2) COVID: Code(s): U07.1 - COVID-19 Status: Acute Assessment and Plan: As above, patient is currently on isolation. Medical Management per primary service. (3) Chest pain: Code(s): R07.9 - Chest pain, unspecified Status: Acute Assessment and Plan: Atypical, worse with coughing deep breathing most likely musculoskeletal etiology. He did have more chest pain today. Will repeat an EKG. (4) COPD exacerbation: Code(s): J44.1 - Chronic obstructive pulmonary disease with (acute) exacerbation Status: Acute Assessment and Plan: Better with nebulizer treatments, steroids now worsening symptoms with COVID Management per primary service. (5) CAP (community acquired pneumonia): Code(s): J18.9 - Pneumonia, unspecified organism Status: Acute Assessment and Plan: supportive care, supplemental O2. Management per primary service. (6) Tobacco abuse: Code(s): Z72.0 - Tobacco use Status: Chronic Assessment and Plan: Smoking cessation. Patient continues to smoke despite known underlying COPD. Subjective Date/time seen: 08/31/21 11:04 Interval history: Cardiology follow up for atrial fibrillation Date of service 08/28/2021: He feels okay today. He says that his breathing today is a little bit worse. He is denying any chest pain but does say that he feels a racing heartbeat occasionally. He had some bradycardia overnight so his diltiazem was paused which resulted in tachycardia. Diltiazem was resumed at 5 and then up titrated to 10mg/hr. Date of service 08/29/2021: Feels about the same today. Remains on 8L O2 per nasal cannula. Denies any palpitations, chest pain. Date of service 08/30/2021: No chest pain. Breathing seems a little better today. Overall feels a little bit better. Date of service 08/31/2021: He did have some chest pain today. Chest pain was after he ?over did it ?. No longer has any chest pain actually feels little bit better except for his bowel movements. No significant shortness of breath. He reportedly had a significant coughing episode prior to his chest pain. Review of Systems Review of Systems: All systems reviewed & are unremarkable except as noted in HPI and below Constitutional: Constitutional: Reports as per HPI, Denies excessive sweating, Denies fatigue, Denies headache(s), Reports lethargy and Reports weakness Eyes: Eyes: Reports as per HPI and Denies change in vision ENT: Reports as per HPI, Reports Normal hearing present, Denies headache(s) and Denies neck pain Cardiovascular: Cardiovascular: Reports as per HPI, Reports chest pain, Denies lightheadedness, Reports palpitations, Reports dyspnea and Reports dyspnea on exertion Respiratory: Respiratory: Reports as per HPI, Reports cough, Reports dyspnea, Reports dyspnea on exertion and Reports wheezing Gastrointestinal: Gastrointestinal: Reports as per HPI, Denies melena, Denies constipation and Denies diarrhea Genitourinary: Genitourinary: Reports as per HPI and Denies dysuria Musculoskeletal: Musculoskeletal: Reports as per HPI, Denies back pain, Denies myalgias and Denies neck pain Int
--- NOTE | 2021-08-31 11:12 | ECG_ITS ---
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
[2021-08-31] MEDS: REMDESIVIR 100 MG/NS 250 ML 100 MG/250 ML BAG 250 MG IVPB (12:26)
--- NOTE | 2021-08-31 13:27 | PM.IMPN ---
Progress Note: A&P Assessment and Plan (1) Acute and chronic respiratory failure: Code(s): J96.20 - Acute and chronic respiratory failure, unspecified whether with hypoxia or hypercapnia Status: Acute Assessment and Plan: Acute on chronic respiratory failure with hypoxia placed on BiPAP on admission. Recently discharged on 08/07 on 5-6L O2 (Per the notes: O2 showed patient is requiring 5 L at rest and 6 L with exertion which is 1 L higher than his normal oxygen requirement). CT Chest 08/24 as mentioned below. Intially felt related to COPD exacerbation and PNA but now with COVID PNA. Completed 7 days of abx. Currently on treatment for COVID. lasix IV to see if pulmonary edema playing a part. He is close to his baseline O2 requirement now. Continue to wean O2 as tolerated. (2) COVID: Code(s): U07.1 - COVID-19 Status: Acute Assessment and Plan: As above. Suspect COVID PNA. COVID by rapid screen on 08/26. Switched to Solu-Medrol to Decadron. Remdesivir started. Continue supplemental O2, supportive care, prone positioning and current treatment plan. Continue isolation (3) Atrial fibrillation: Code(s): I48.91 - Unspecified atrial fibrillation Status: Acute Assessment and Plan: Patient developed AFib with RVR while hospitalized related to COVID, COPD and PNA. Currently on oral diltiazem and rate controlled. [id number] 3-4. Continue Xarelto for stroke prophylaxis. Cardiology following and appreciate their recommendations. (4) CAP (community acquired pneumonia): Code(s): J18.9 - Pneumonia, unspecified organism Status: Acute Assessment and Plan: Bilateral lower lobe pneumonia noted on CTA and chest x-ray. Patient was started on IV abx and has completed a course of IV ceftriaxone and azithromycin. BCx and sputum culture are negative. Granddaughter tested positive for COVID and now patietn is positive. As above. (5) COPD exacerbation: Code(s): J44.1 - Chronic obstructive pulmonary disease with (acute) exacerbation Status: Acute Assessment and Plan: Severe emphysema but CT chest. [place] to have COPD with exacerbation. Methylprednisolone changed to Decadron. Continue Albuterol prn. Wean O2 as toelrated (6) Bilateral lower extremity edema: Code(s): R60.0 - Localized edema Status: Resolved Assessment and Plan: Probably CHF with pedal edema, BNp [id number] and low EF. CTA chest 08/25 showing no PE but worsening PNA involving the bilateral lower lobes and RML with severe emphysema. Echo on 08/24 with EF 45-55%, indeterminate diastolic function, no wall motion abnormalities and mild pHTN. Still with pedal edema. BP stable and renal function okay so will start IV Lasix to see if this will improve his respiratory condition. (7) Hypertension: Code(s): I10 - Essential (primary) hypertension Status: Chronic Assessment and Plan: Patient's blood pressure was reviewed on 08/31 Blood pressure remains well controlled. Will continue current medications. (8) Anemia: Code(s): D64.9 - Anemia, unspecified Status: Acute Assessment and Plan: Hgb low but stable in the 10 range. Iron studies consistent with anemia of chronic disease. Will check B12 for completion. (9) Tobacco abuse: Code(s): Z72.0 - Tobacco use Status: Chronic Assessment and Plan: Patient was educated about the benefits of smoking cessation (10) Benign prostate hyperplasia: Code(s): N40.0 - Benign prostatic hyperplasia without lower urinary tract symptoms Status: Chronic Assessment and Plan: Stable. Continue Flomax. Voiding trial once more ambulatory. 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
[2021-08-31] MEDS: FUROSEMIDE INJ 40 MG/4 ML VIAL 20 MG IV PUSH ×2 (15:24→22:02)
--- NOTE | 2021-08-31 16:14 | PHAR ---
CALLED SPOKE TO RN AND LET HER KNOW PT'S NORCO IS DUE FOR RENEWAL. ALSO PUT IN A CLARIFICATION REQUEST TO RENEW IT IF NEEDED.
[2021-08-31] MEDS: RIVAROXABAN 20 MG TABLET PO (17:49)
[2021-08-31] MEDS: SODIUM CHLORIDE NASAL GEL 14.1 GM 1 APPLIC NASAL (20:02)
[2021-08-31] MEDS: MELATONIN 5 MG TABLET 10 MG PO (20:02)
[2021-09-01] VITALS (16 sets, daily range): BP systolic 112–129; BP diastolic 63–90; PULSE 83–100; RESP 14–23; TEMP 36.4–37.3; O2SAT 85–99
[2021-09-01] MEDS: ALBUTEROL SULFATE (*SP) AEROSOL 1 PUFF 2 PUFF INHALATION ×6 (00:04→20:00)
[2021-09-01] MEDS: dilTIAZem HCL 60 MG TABLET PO ×4 (00:24→16:58)
[2021-09-01 05:32] LABS: Basophils Percent Auto 0.1 % (0.2-1.2); Hematocrit 30.6 % (42.0-52.0); Hemoglobin 10.5 g/dL (14.0-18.0); Immature Granulocyte Absolute 0.19 K/mm3 (0.00-0.031); Immature Granulocyte Percent A 1.3 % (0-0.5); Lymphocytes Absolute Auto 0.26 K/mm3 (0.9-3.2); Lymphocytes Percent Auto 1.7 % (18.3-44.2); Mean Corpuscular HGB Conc 34.3 g/dl (32-36); Mean Corpuscular Hemoglobin 31.6 pg (26-34); Mean Corpuscular Volume 92.2 fl (80-100); Mean Platelet Volume 9.8 fl (7.4-10.4); Monocytes Absolute Auto 0.5 K/mm3 (0.1-0.6); Neutrophils Percent Auto 93.9 % (45.5-73.1); Platelet Count Result 302 k/mm3 (150-375); Red Blood Count 3.32 M/mm3 (4.6-6.20); Red Cell Distribution Width 16.1 % (11.5-14.5)
[2021-09-01 05:45] LABS: Alanine Aminotransferase 67 U/L (4-50); Albumin Level 2.6 g/dL (3.5-5.1); Alkaline Phosphatase 60 U/L (38-126); Anion Gap 0 mmol/L (8-16); Aspartate Amino Transferase 23 U/L (17-59); Bilirubin,Total 0.6 mg/dL (0.2-1.3); Blood Urea Nitrogen 40 mg/dL (9-20); Calcium 8.1 mg/dL (8.4-10.2); Carbon Dioxide 35 mmol/L (22-30); Chloride 95 mmol/L (98-107); Estimated CRCL calculation 80 ml/min; Estimated Glomerular Filt Rate > 60; Glucose 160 mg/dL (65-110); Phosphorus 3.6 mg/dL (2.5-4.5); Potassium 3.4 mmol/L (3.4-5.0); Sodium 130 mmol/L (137-145)
[2021-09-01 06:48] LABS: Folic Acid 14.4 ng/mL (2.76->20)
[2021-09-01 07:50] LABS: INR 1.8; Prothrombin Time 20.1 Seconds (11.1-14.7)
--- NOTE | 2021-09-01 09:27 | PM.PNCARD ---
Progress Note: A&P Assessment and Plan (1) Atrial fibrillation: Code(s): I48.91 - Unspecified atrial fibrillation Status: Acute Assessment and Plan: New onset during this hospitalization. Secondary to acute illness with pneumonia, chronic lung disease and COVID positive. He denies any history of atrial fibrillation. He has been transitioned to oral diltiazem and rate has remained well controlled with this, rate mostly in the 80's and 90's. He has already been started on systemic anticoagulation. He has a [id number] score of 3 (age >75, HTN), anticoagulation is indicated. He denies having previous bleeding history or any history of falls. Continue Xarelto 20mg daily, monitor for bleeding. Transition to long-acting diltiazem within the next day or 2 (2) COVID: Code(s): U07.1 - COVID-19 Status: Acute Assessment and Plan: As above, patient is currently on isolation. Medical Management per primary service. Will repeat a chest x-ray today as his cough seems deeper and more productive and his white count is more elevated today. (3) Chest pain: Code(s): R07.9 - Chest pain, unspecified Status: Acute Assessment and Plan: Atypical, worse with coughing deep breathing most likely musculoskeletal etiology. (4) COPD exacerbation: Code(s): J44.1 - Chronic obstructive pulmonary disease with (acute) exacerbation Status: Acute Assessment and Plan: Better with nebulizer treatments, steroids now worsening symptoms with COVID Management per primary service. (5) CAP (community acquired pneumonia): Code(s): J18.9 - Pneumonia, unspecified organism Status: Acute Assessment and Plan: supportive care, supplemental O2. Management per primary service. (6) Tobacco abuse: Code(s): Z72.0 - Tobacco use Status: Chronic Assessment and Plan: Smoking cessation. Patient continues to smoke despite known underlying COPD. (7) Hypokalemia: Code(s): E87.6 - Hypokalemia Status: Acute Assessment and Plan: KCL 40 mg p.o. x1 Subjective Date/time seen: 09/01/21 09:27 Interval history: Cardiology follow up for atrial fibrillation Date of service 08/28/2021: He feels okay today. He says that his breathing today is a little bit worse. He is denying any chest pain but does say that he feels a racing heartbeat occasionally. He had some bradycardia overnight so his diltiazem was paused which resulted in tachycardia. Diltiazem was resumed at 5 and then up titrated to 10mg/hr. Date of service 08/29/2021: Feels about the same today. Remains on 8L O2 per nasal cannula. Denies any palpitations, chest pain. Date of service 08/30/2021: No chest pain. Breathing seems a little better today. Overall feels a little bit better. Date of service 08/31/2021: He did have some chest pain today. Chest pain was after he ?over did it ?. No longer has any chest pain actually feels little bit better except for his bowel movements. No significant shortness of breath. He reportedly had a significant coughing episode prior to his chest pain. Date of service 09/01/2021: He denies any chest pain. Shortness breath is about the same. His cough seems deeper and more productive today. His white count is elevated. Review of Systems Review of Systems: All systems reviewed & are unremarkable except as noted in HPI and below Constitutional: Constitutional: Reports as per HPI, Denies excessive sweating, Denies fatigue, Denies headache(s), Reports lethargy and Reports weakness Eyes: Eyes: Reports as per HPI and Denies change in vision ENT: Reports as per HPI, Reports Normal hearing present, Denies headache(s) and Denies neck pain Cardiovascular: Cardiovascular: Reports as per HPI, Reports chest pain, Denies lightheadedness, Reports palpitations, Reports dyspnea and Reports dyspnea on exertion Respiratory: Respiratory: Reports as per HPI, Reports
[2021-09-01] MEDS: FUROSEMIDE INJ 40 MG/4 ML VIAL 20 MG IV PUSH (09:33)
[2021-09-01] MEDS: TAMSULOSIN HCL 0.4 MG CAPSULE PO (09:34)
[2021-09-01] MEDS: BENZONATATE 100 MG CAPSULE PO ×3 (09:34→16:58)
[2021-09-01] MEDS: ROFLUMILAST 500 MCG TABLET PO (09:34)
[2021-09-01] MEDS: POTASSIUM CHLORIDE 20 MEQ TABLET 40 MEQ PO (09:34)
[2021-09-01] MEDS: REMDESIVIR 100 MG/NS 250 ML 100 MG/250 ML BAG 250 MG IVPB (11:14)
--- NOTE | 2021-09-01 12:04 | PM.IMPN ---
Progress Note: A&P Assessment and Plan (1) Acute and chronic respiratory failure: Code(s): J96.20 - Acute and chronic respiratory failure, unspecified whether with hypoxia or hypercapnia Status: Acute Assessment and Plan: Acute on chronic respiratory failure with hypoxia placed on BiPAP on admission. Recently discharged on 08/07 on 5-6L O2 (Per the notes: O2 showed patient is requiring 5 L at rest and 6 L with exertion which is 1 L higher than his normal oxygen requirement). CT Chest 08/24 as mentioned below. Initially felt related to COPD exacerbation and PNA but now with COVID PNA. Completed 7 days of abx. Currently on treatment for COVID. Condition worsened overnight and this morning. Consider aspiration. Will have Speech therapy consulted. Continue to wean O2 as tolerated. Speech had difficulty assessing patient but he seemed to do oaky with thin liquids (2) COVID: Code(s): U07.1 - COVID-19 Status: Acute Assessment and Plan: As above. Suspect COVID PNA. COVID by rapid screen on 08/26. Switched from Solu-Medrol to Decadron. He is completing Remdesivir today. Continue Steroids. Continue supplemental O2. Wean O2 as toelrated. Encouraged prone positioning. Continue supportive care and current treatment plan. Continue isolation. (3) Atrial fibrillation: Code(s): I48.91 - Unspecified atrial fibrillation Status: Acute Assessment and Plan: Patient developed AFib with RVR while hospitalized related to COVID, COPD and PNA. Currently on oral diltiazem and rate controlled. [id number] 3-4. Continue Xarelto for stroke prophylaxis. Cardiology following and appreciate their recommendations. (4) CAP (community acquired pneumonia): Code(s): J18.9 - Pneumonia, unspecified organism Status: Acute Assessment and Plan: Bilateral lower lobe pneumonia noted on CTA and chest x-ray. Patient was started on abx and has completed a course of IV ceftriaxone and azithromycin. BCx and sputum culture are negative. Granddaughter tested positive for COVID and now patient is positive. As above. (5) COPD exacerbation: Code(s): J44.1 - Chronic obstructive pulmonary disease with (acute) exacerbation Status: Acute Assessment and Plan: Severe emphysema by CT chest. [place] to have COPD with exacerbation. Methylprednisolone changed to Decadron. Continue Albuterol prn. Wean O2 as tolerated (6) Bilateral lower extremity edema: Code(s): R60.0 - Localized edema Status: Resolved Assessment and Plan: Probably CHF with pedal edema with BNP 6790 and low EF. CTA chest 08/25 showing no PE but worsening PNA involving the bilateral lower lobes and RML with severe emphysema. Echo on 08/24 with EF 45-55%, indeterminate diastolic function, no wall motion abnormalities and mild pHTN. Was started on low dose Lasix. Still with pedal edema but better (suspect elbow edema is dependent). BP stable and renal function okay so will continue as oral Lasix. (7) Hypertension: Code(s): I10 - Essential (primary) hypertension Status: Chronic Assessment and Plan: Patient's blood pressure was reviewed on 09/01 Blood pressure remains well controlled. Will continue current medications. (8) Anemia: Code(s): D64.9 - Anemia, unspecified Status: Acute Assessment and Plan: Hgb low but stable in the 10 range. B12 normal. Iron studies consistent with anemia of chronic disease. Continue to follow. (9) Tobacco abuse: Code(s): Z72.0 - Tobacco use Status: Chronic Assessment and Plan: Patient was educated about the benefits of smoking cessation (10) Benign prostate hyperplasia: Code(s): N40.0 - Benign prostatic hyperplasia without lower urinary tract symptoms Status: Chronic Assessment and Plan: Stable. Continue Flomax. Voiding trial once more ambulatory. (11) DVT prophylaxis: Code(s):
--- NOTE | 2021-09-01 13:53 | PCSTNOTE ---
Attempted a bedside swallow evaluation this afternoon with the patient's lunch tray. The patient took 2 sips of coffee and his O2 dropped to 83; no other overt signs/symptoms of aspiration. The patient refused solid trials and any additional trials following that, saying he needed to catch his breath, and he just didn't want to. Patient made aware that he would remain NPO until the evaluation is completed tomorrow, he was agreeable. Communicated with AKASH Adkins that I am comfortable with small sips of thin liquid at this time, monitoring oxygen. Cannot recommend solids at this time as the patient did not trial any at bedside. Anticipate solid downgrade secondary to high flow oxygen. ST to attempt tomorrow.
[2021-09-01] MEDS: RIVAROXABAN 20 MG TABLET PO (16:58)
[2021-09-01] MEDS: FUROSEMIDE 20 MG TABLET PO (16:58)
[2021-09-01] MEDS: SODIUM CHLORIDE NASAL GEL 14.1 GM 1 APPLIC NASAL (20:25)
[2021-09-01] MEDS: MELATONIN 5 MG TABLET 10 MG PO (20:25)
[2021-09-02] VITALS (14 sets, daily range): BP systolic 104–128; BP diastolic 60–87; PULSE 70–104; RESP 14–26; TEMP 36–37; O2SAT 88–99
[2021-09-02] MEDS: dilTIAZem HCL 60 MG TABLET PO ×4 (00:02→17:28)
[2021-09-02] MEDS: ALBUTEROL SULFATE (*SP) AEROSOL 1 PUFF 2 PUFF INHALATION ×5 (00:30→17:48)
[2021-09-02 05:18] LABS: Basophils Percent Auto 0.2 % (0.2-1.2); Hematocrit 33.1 % (42.0-52.0); Hemoglobin 11.3 g/dL (14.0-18.0); Immature Granulocyte Absolute 0.21 K/mm3 (0.00-0.031); Immature Granulocyte Percent A 1.4 % (0-0.5); Lymphocytes Absolute Auto 0.27 K/mm3 (0.9-3.2); Lymphocytes Percent Auto 1.8 % (18.3-44.2); Mean Corpuscular HGB Conc 34.1 g/dl (32-36); Mean Corpuscular Hemoglobin 31.9 pg (26-34); Mean Corpuscular Volume 93.5 fl (80-100); Mean Platelet Volume 9.7 fl (7.4-10.4); Monocytes Absolute Auto 0.5 K/mm3 (0.1-0.6); Monocytes Percent Auto 3.1 % (2.6-8.5); Neutrophils Absolute Auto 13.7 K/mm3 (1.3-6.7); Neutrophils Percent Auto 93.5 % (45.5-73.1); Platelet Count Result 342 k/mm3 (150-375); Red Blood Count 3.54 M/mm3 (4.6-6.20); Red Cell Distribution Width 16.3 % (11.5-14.5); White Blood Count 14.7 K/mm3 (4.5-10.0)
[2021-09-02 05:19] LABS: Alanine Aminotransferase 68 U/L (4-50); Albumin Level 2.7 g/dL (3.5-5.1); Alkaline Phosphatase 65 U/L (38-126); Anion Gap 2 mmol/L (8-16); Aspartate Amino Transferase 24 U/L (17-59); Bilirubin,Total 0.8 mg/dL (0.2-1.3); Blood Urea Nitrogen 40 mg/dL (9-20); Calcium 8.1 mg/dL (8.4-10.2); Carbon Dioxide 31 mmol/L (22-30); Chloride 96 mmol/L (98-107); Estimated CRCL calculation 80 ml/min; Estimated Glomerular Filt Rate > 60; Glucose 138 mg/dL (65-110); Magnesium 2.1 mg/dL (1.6-2.3); Potassium 3.9 mmol/L (3.4-5.0); Sodium 129 mmol/L (137-145)
--- NOTE | 2021-09-02 09:51 | PM.PNCARD ---
Progress Note: A&P Additional Plan Pleasant but unfortunately ill 76-year-old man with severe COPD as well as coronavirus. He is in atrial fibrillation which is a new onset and has been managed with anticoagulation and rate control with diltiazem. He is doing well no need to change his regimen today. Patient is interested in information as to when he may be discharged. His atrial fibrillation of course does not have to keep him in the hospital. Told the patient that his disposition is per the primary team. Harry Foster MD [facility] Subjective Date/time seen: Date of service: 09/02/21 09:51 Interval history: Follow-up visit in this 76-year-old man with severe baseline COPD unfortunately now with coronavirus pneumonia as well. In this setting the patient developed atrial fibrillation. Being treated with diltiazem for rate rate control as well as systemic anticoagulation. The patient is in relatively good spirits this morning he is still requiring a fair amount of oxygen. He is hopeful that he can go home relatively soon. Discussed with him rate control and anticoagulation strategy which seems to be satisfactory at this time Exam Const: General: comfortable and no acute distress Other: Pleasant chronically ill-appearing elderly man watching television wearing high-flow nasal cannula oxygen no distress HENMT: Mouth: Yes moist mucous membranes Eyes: Sclera: sclerae normal Pupils: Equal, round and reactive pupils present Neck: Neck: supple and no JVD Resp: Effort & Inspection: normal respiratory effort Other: Breath sounds are markedly diminished throughout both lung russo Cardio: Rhythm: abnormal rhythm irregularly irregular GI: GI Palp: Yes Soft to palpation Auscultation: normal bowel sounds Skin: General skin exam: normal color Neuro: Cognition (Neuro): normal cognition Extrem: General: normal to inspection Objective Data Vital Signs Vital Signs: Vital Signs - 24 hr 09/01/21 10:00 09/01/21 12:00 09/01/21 14:00 Temperature 36.4 C Pulse Rate 84 83 85 Respiratory Rate 16 Blood Pressure 118/74 Pulse Oximetry 94 09/01/21 16:00 09/01/21 16:57 09/01/21 18:00 Temperature 36.6 C Pulse Rate 94 97 90 Respiratory Rate 16 Blood Pressure 115/90 Pulse Oximetry 93 93 09/01/21 20:00 09/01/21 20:20 09/01/21 22:00 Temperature 37.1 C Pulse Rate 96 96 Respiratory Rate 18 Blood Pressure 127/63 Pulse Oximetry 99 96 09/02/21 00:00 09/02/21 00:15 09/02/21 02:00 Temperature 37.0 C Pulse Rate 96 96 92 Respiratory Rate 18 18 Blood Pressure 124/81 Pulse Oximetry 99 99 09/02/21 04:00 09/02/21 06:00 09/02/21 08:35 Temperature 36.7 C Pulse Rate 90 90 Respiratory Rate 18 Blood Pressure 118/60 Pulse Oximetry 92 93 Intake/Output Intake/Output: Intake & Output 08/30/21 08/31/21 09/01/21 09/02/21 23:59 23:59 23:59 23:59 Intake Total 1570 2350 950 100 Output Total 600 1500 1850 500 Balance 970 850 -900 -400 Meds/Results Medications: Active Medications Generic Name Dose Route Start Last Admin Trade Name Freq PRN Reason Stop Dose Admin Acetaminophen 650 mg 08/22/21 16:11 08/30/21 20:35 Acetaminophen 325 Mg Tablet PO 650 mg Q4H PRN Administration Mild Pain (1-3) or Fever Hydrocodone Bitart/Acetaminophen 1 tab 08/22/21 16:11 08/31/21 05:45 Hydrocodone/Acetaminophen (*Crx) 5-325 Mg Tablet PO 1 tab Q4H PRN Administration Pain Rated 4-6 Albuterol 2 puff 08/27/21 08:45 09/02/21 08:34 Albuterol Sulfate (*Sp) Aerosol 1 Puff INHALATION 2 puff Q4HRT ZARIA Administration Benzonatate 100 mg 08/27/21 13:00 09/01/21 16:58 Benzonatate 100 Mg Capsule PO 100 mg TID ZARIA Administration Dexamethasone Sodium Phosphate 6 mg 08/28/21 14:30 09/01/21 09:33 Dexamethasone Sod Phos Inj 10 Mg/Ml 1 Ml Vial IV PUSH 09/06/21 09:01 6 mg DAILY ZARIA Administration Diltiazem HCl 60 mg 08/28/21 18:00 09/02/21 06:
[2021-09-02] MEDS: BENZONATATE 100 MG CAPSULE PO ×3 (10:11→17:27)
[2021-09-02] MEDS: FUROSEMIDE 20 MG TABLET PO ×2 (10:11→17:28)
[2021-09-02] MEDS: TAMSULOSIN HCL 0.4 MG CAPSULE PO (10:12)
[2021-09-02] MEDS: ROFLUMILAST 500 MCG TABLET PO (10:12)
--- NOTE | 2021-09-02 10:20 | PM.IMPN ---
Progress Note: A&P Assessment and Plan (1) Acute and chronic respiratory failure: Code(s): J96.20 - Acute and chronic respiratory failure, unspecified whether with hypoxia or hypercapnia Status: Acute Assessment and Plan: Acute on chronic respiratory failure with hypoxia placed on BiPAP on admission. Recently discharged on 08/07 on 5-6L O2 (Per the notes: O2 showed patient is requiring 5 L at rest and 6 L with exertion which is 1 L higher than his normal oxygen requirement). CT Chest 08/24 as mentioned below. Initially felt related to COPD exacerbation and PNA but now with COVID PNA. Completed 7 days of abx. Currently on treatment for COVID. Condition worsened overnight and this morning. Consider aspiration. Will have Speech therapy consulted. Continue to wean O2 as tolerated. Completed remdesivir, ceftriaxone, azithromax. Continue dexamethasone. (2) COVID: Code(s): U07.1 - COVID-19 Status: Acute Assessment and Plan: As above. Suspect COVID PNA. COVID by rapid screen on 08/26. Switched from Solu-Medrol to Decadron. He completed Remdesivir 09/01. Received tocilizumab 09/01. Continue dexamethasone. Continue supplemental O2. Wean O2 as tolerated. (3) Atrial fibrillation: Code(s): I48.91 - Unspecified atrial fibrillation Status: Acute Assessment and Plan: Patient developed AFib with RVR while hospitalized related to COVID, COPD and PNA. Currently on oral diltiazem and rate controlled. [id number] 3-4. Continue Xarelto for stroke prophylaxis. (4) CAP (community acquired pneumonia): Code(s): J18.9 - Pneumonia, unspecified organism Status: Acute Assessment and Plan: Bilateral lower lobe pneumonia noted on CTA and chest x-ray. Patient was started on abx and has completed a course of IV ceftriaxone and azithromycin. BCx and sputum culture are negative. Granddaughter tested positive for COVID and 08/26 patient was positive. As above. (5) COPD exacerbation: Code(s): J44.1 - Chronic obstructive pulmonary disease with (acute) exacerbation Status: Acute Assessment and Plan: Severe emphysema by CT chest. [place] to have COPD with exacerbation. Methylprednisolone changed to Decadron. Continue Albuterol prn. Wean O2 as tolerated (6) Bilateral lower extremity edema: Code(s): R60.0 - Localized edema Status: Resolved Assessment and Plan: Probably CHF with pedal edema with BNP 6790 and low EF. CTA chest 08/25 showing no PE but worsening PNA involving the bilateral lower lobes and RML with severe emphysema. Echo on 08/24 with EF 45-55%, indeterminate diastolic function, no wall motion abnormalities and mild pHTN. Was started on low dose Lasix. Still with pedal edema but better (suspect elbow edema is dependent). BP stable and renal function okay so will continue as oral Lasix. (7) Hypertension: Code(s): I10 - Essential (primary) hypertension Status: Chronic Assessment and Plan: Patient's blood pressure was reviewed on 09/01 Blood pressure remains well controlled. Will continue current medications. (8) Anemia: Code(s): D64.9 - Anemia, unspecified Status: Acute Assessment and Plan: Hgb low but stable in the 10 range. B12 normal. Iron studies consistent with anemia of chronic disease. Continue to follow. (9) Tobacco abuse: Code(s): Z72.0 - Tobacco use Status: Chronic Assessment and Plan: Patient was educated about the benefits of smoking cessation (10) Benign prostate hyperplasia: Code(s): N40.0 - Benign prostatic hyperplasia without lower urinary tract symptoms Status: Chronic Assessment and Plan: Stable. Continue Flomax. Voiding trial once more ambulatory. (11) DVT prophylaxis: Code(s): Z29.9 - Encounter for prophylactic measures, unspecified Status: Acute Assessment and Plan: Brand[place] Subjective Date/t
--- NOTE | 2021-09-02 11:35 | PCSTNOTE ---
Please refer to the Bedside Swallow Evaluation in the EMR. Please note, silent aspiration cannot be ruled out at bedside.
--- NOTE | 2021-09-02 13:15 | PCOTNOTE ---
Attempted to see pt for occupational therapy tx this PM, however, pt refused to participate per RN. RN reports that pt states he is performing his hand exercises. Will continue per poc duration/frequency tomorrow.
[2021-09-02] MEDS: LORazepam (*CRX) 0.5 MG TABLET PO (13:17)
[2021-09-02] MEDS: RIVAROXABAN 20 MG TABLET PO (17:28)
[2021-09-02] MEDS: SODIUM CHLORIDE NASAL GEL 14.1 GM 1 APPLIC NASAL (20:26)
[2021-09-02] MEDS: MELATONIN 5 MG TABLET 10 MG PO (20:26)
[2021-09-03] VITALS (19 sets, daily range): BP systolic 102–122; BP diastolic 49–66; PULSE 77–110; RESP 16–26; TEMP 36.1–37.2; O2SAT 90–99
[2021-09-03] MEDS: dilTIAZem HCL 60 MG TABLET PO ×5 (00:50→23:50)
--- NOTE | 2021-09-03 08:20 | PCPTNOTE ---
Attempted to see pt on 09/02/2021, pt refused.
[2021-09-03] MEDS: DEXAMETHASONE 2 MG TABLET 6 MG PO (08:37)
[2021-09-03] MEDS: FUROSEMIDE 20 MG TABLET PO ×2 (08:38→16:29)
[2021-09-03] MEDS: BENZONATATE 100 MG CAPSULE PO ×3 (08:38→16:48)
[2021-09-03] MEDS: TAMSULOSIN HCL 0.4 MG CAPSULE PO (08:38)
[2021-09-03] MEDS: ROFLUMILAST 500 MCG TABLET PO (08:38)
[2021-09-03] MEDS: LORazepam (*CRX) 0.5 MG TABLET PO ×3 (08:38→20:39)
[2021-09-03 09:00] LABS: Hemoglobin 11.2 g/dL (14.0-18.0); Mean Corpuscular HGB Conc 33.9 g/dl (32-36); Mean Corpuscular Hemoglobin 32.1 pg (26-34); Mean Corpuscular Volume 94.6 fl (80-100); Mean Platelet Volume 9.7 fl (7.4-10.4); Platelet Count Result 335 k/mm3 (150-375); Red Blood Count 3.49 M/mm3 (4.6-6.20); Red Cell Distribution Width 16.7 % (11.5-14.5); White Blood Count 17.7 K/mm3 (4.5-10.0)
[2021-09-03] MEDS: ALBUTEROL SULFATE (*SP) AEROSOL 1 PUFF 2 PUFF INHALATION ×5 (09:03→23:51)
[2021-09-03 09:16] LABS: Anion Gap 5 mmol/L (8-16); Blood Urea Nitrogen 43 mg/dL (9-20); Calcium 7.9 mg/dL (8.4-10.2); Carbon Dioxide 29 mmol/L (22-30); Chloride 96 mmol/L (98-107); Estimated CRCL calculation 95 ml/min; Estimated Glomerular Filt Rate > 60; Glucose 138 mg/dL (65-110); Potassium 3.3 mmol/L (3.4-5.0); Sodium 130 mmol/L (137-145)
--- NOTE | 2021-09-03 10:03 | PM.IMPN ---
Progress Note: A&P Assessment and Plan (1) Acute and chronic respiratory failure: Code(s): J96.20 - Acute and chronic respiratory failure, unspecified whether with hypoxia or hypercapnia Status: Acute Assessment and Plan: Acute on chronic respiratory failure with hypoxia placed on BiPAP on admission. Recently discharged on 08/07 on 5-6L O2 (Per the notes: O2 showed patient is requiring 5 L at rest and 6 L with exertion which is 1 L higher than his normal oxygen requirement). CT Chest 08/24 as mentioned below. Initially felt related to COPD exacerbation and PNA but now with COVID PNA. Completed 7 days of abx. Currently on treatment for COVID. Completed remdesivir, ceftriaxone, azithromax. Continue dexamethasone. 09/03 sats continue in the upper 80's (2) COVID: Code(s): U07.1 - COVID-19 Status: Acute Assessment and Plan: As above. Suspect COVID PNA. COVID by rapid screen on 08/26. Switched from Solu-Medrol to Decadron. He completed Remdesivir 09/01. Received tocilizumab 09/01. Continue dexamethasone. Continue to support with supplemental 09/02 added prn lorazepam for anxiety 09/03 increased prn lorazepam and added low dose morphine for dyspnea MR. CELIS DOES NOT WISH TO BE INTUBATED PROGNOSIS IS POOR (3) Atrial fibrillation: Code(s): I48.91 - Unspecified atrial fibrillation Status: Acute Assessment and Plan: Patient developed AFib with RVR while hospitalized related to COVID, COPD and PNA. Currently on oral diltiazem and rate controlled. [id number] 3-4. Continue Xarelto for stroke prophylaxis. (4) CAP (community acquired pneumonia): Code(s): J18.9 - Pneumonia, unspecified organism Status: Acute Assessment and Plan: Bilateral lower lobe pneumonia noted on CTA and chest x-ray. Patient was started on abx and has completed a course of IV ceftriaxone and azithromycin. BCx and sputum culture are negative. Granddaughter tested positive for COVID and 08/26 patient was positive. As above. (5) COPD exacerbation: Code(s): J44.1 - Chronic obstructive pulmonary disease with (acute) exacerbation Status: Acute Assessment and Plan: Severe emphysema by CT chest. [place] to have COPD with exacerbation. Methylprednisolone changed to Decadron. Continue Albuterol prn. Wean O2 as tolerated (6) Bilateral lower extremity edema: Code(s): R60.0 - Localized edema Status: Resolved Assessment and Plan: Probably CHF with pedal edema with BNP 6790 and low EF. CTA chest 08/25 showing no PE but worsening PNA involving the bilateral lower lobes and RML with severe emphysema. Echo on 08/24 with EF 45-55%, indeterminate diastolic function, no wall motion abnormalities and mild pHTN. Was started on low dose Lasix. Still with pedal edema but better (suspect elbow edema is dependent). 09/03 Labs with prerenal pattern with mild hypokalemia, so furosemide di/c and PO potassium ordered (7) Hypertension: Code(s): I10 - Essential (primary) hypertension Status: Chronic Assessment and Plan: Patient's blood pressure was reviewed on 09/03 Blood pressure remains well controlled. Will continue current medications. (8) Anemia: Code(s): D64.9 - Anemia, unspecified Status: Acute Assessment and Plan: Hgb low but stable in the 10 range. B12 normal. Iron studies consistent with anemia of chronic disease. Continue to follow. (9) Benign prostate hyperplasia: Code(s): N40.0 - Benign prostatic hyperplasia without lower urinary tract symptoms Status: Chronic Assessment and Plan: Stable. Continue Flomax. Voiding trial once more ambulatory. (10) DVT prophylaxis: Code(s): Z29.9 - Encounter for prophylactic measures, unspecified Status: Acute Assessment and Plan: Felisarelto (11) Tobacco abuse: Code(s): Z72.0 - Tobacco use Status: Chronic Subjective Fidel
--- NOTE | 2021-09-03 11:49 | PCPTNOTE ---
Pts o2 sats are low with increased anxiety- no PT today per RN. Will attempt tomorrow
--- NOTE | 2021-09-03 12:37 | PCOTNOTE ---
Attempted to see pt for occupational therapy tx, however, due to needing increased oxygen, RN does not feel therapy is appropriate at this time. Will continue per POC duration/frequency tomorrow.
--- NOTE | 2021-09-03 16:10 | PCRCNOTE ---
Window of time for administration has passed. See next scheduled administration.
[2021-09-03] MEDS: RIVAROXABAN 20 MG TABLET PO (16:29)
[2021-09-03] MEDS: MORPHINE SULFATE (*CRX) 2 MG/ML INJ 0.5 MG IV PUSH (20:38)
[2021-09-03] MEDS: POTASSIUM CHLORIDE 20 MEQ PACKET (FOR LIQUID) 40 MEQ PO (20:38)
[2021-09-03] MEDS: MELATONIN 5 MG TABLET 10 MG PO (20:38)
[2021-09-03] MEDS: SODIUM CHLORIDE NASAL GEL 14.1 GM 1 APPLIC NASAL (20:51)
[2021-09-04] VITALS (12 sets, daily range): BP systolic 99–134; BP diastolic 47–64; PULSE 73–105; RESP 22–34; TEMP 36.1–36.8; O2SAT 88–99
[2021-09-04] MEDS: ALBUTEROL SULFATE (*SP) AEROSOL 1 PUFF 2 PUFF INHALATION ×2 (03:11→08:33)
[2021-09-04] MEDS: dilTIAZem HCL 60 MG TABLET PO ×2 (05:26→12:14)
[2021-09-04 06:33] LABS: Prothrombin Time 22.4 Seconds (11.1-14.7)
[2021-09-04 06:36] LABS: Alanine Aminotransferase 46 U/L (4-50); Albumin Level 2.5 g/dL (3.5-5.1); Alkaline Phosphatase 53 U/L (38-126); Anion Gap 4 mmol/L (8-16); Aspartate Amino Transferase 21 U/L (17-59); Bilirubin,Total 0.8 mg/dL (0.2-1.3); Blood Urea Nitrogen 45 mg/dL (9-20); CRP < 0.5 mg/dL (<1.0); Calcium 7.9 mg/dL (8.4-10.2); Carbon Dioxide 26 mmol/L (22-30); Chloride 100 mmol/L (98-107); Estimated CRCL calculation 80 ml/min; Estimated Glomerular Filt Rate > 60; Glucose 149 mg/dL (65-110); Lactate Dehydrogenase 517 U/L (313-618); Potassium 3.8 mmol/L (3.4-5.0); Sodium 130 mmol/L (137-145)
[2021-09-04 07:00] LABS: Basophils Percent Auto 0.1 % (0.2-1.2); Hematocrit 29.9 % (42.0-52.0); Hemoglobin 10.2 g/dL (14.0-18.0); Immature Granulocyte Absolute 0.16 K/mm3 (0.00-0.031); Lymphocytes Absolute Auto 0.28 K/mm3 (0.9-3.2); Lymphocytes Percent Auto 1.7 % (18.3-44.2); Mean Corpuscular HGB Conc 34.1 g/dl (32-36); Mean Corpuscular Hemoglobin 31.8 pg (26-34); Mean Corpuscular Volume 93.1 fl (80-100); Mean Platelet Volume 9.9 fl (7.4-10.4); Monocytes Absolute Auto 0.7 K/mm3 (0.1-0.6); Monocytes Percent Auto 4.2 % (2.6-8.5); Neutrophils Absolute Auto 15.6 K/mm3 (1.3-6.7); Platelet Count Result 311 k/mm3 (150-375); Red Blood Count 3.21 M/mm3 (4.6-6.20); Red Cell Distribution Width 16.7 % (11.5-14.5); White Blood Count 16.7 K/mm3 (4.5-10.0)
[2021-09-04] MEDS: MORPHINE SULFATE (*CRX) 2 MG/ML INJ 0.5 MG IV PUSH (07:48)
[2021-09-04] MEDS: LORazepam (*CRX) 0.5 MG TABLET PO ×2 (07:48→15:52)
[2021-09-04] MEDS: TAMSULOSIN HCL 0.4 MG CAPSULE PO (09:40)
[2021-09-04] MEDS: ROFLUMILAST 500 MCG TABLET PO (09:40)
[2021-09-04] MEDS: BENZONATATE 100 MG CAPSULE PO ×2 (09:40→12:14)
[2021-09-04] MEDS: DEXAMETHASONE 2 MG TABLET 6 MG PO (09:40)
[2021-09-04 10:17] LABS: Anisocytosis 1+ (NORMAL); Platelet Estimate Adequate (Adequate); Poikilocytosis 1+ (NORMAL)
[2021-09-04 10:18] LABS: Ovalocytes 1+ (NORMAL); Target Cells 1+ (NORMAL)
--- NOTE | 2021-09-04 11:47 | PM.IMPN ---
Progress Note: A&P Assessment and Plan (1) Acute and chronic respiratory failure: Code(s): J96.20 - Acute and chronic respiratory failure, unspecified whether with hypoxia or hypercapnia Status: Acute Assessment and Plan: Acute on chronic respiratory failure with hypoxia placed on BiPAP on admission. Recently discharged on 08/07 on 5-6L O2 (Per the notes: O2 showed patient is requiring 5 L at rest and 6 L with exertion which is 1 L higher than his normal oxygen requirement). CT Chest 08/24 as mentioned below. Initially felt related to COPD exacerbation and PNA but now with COVID PNA. Completed 7 days of abx with Rocephin and Azithromycin. Suspect COVID present on admission given the CT findings. Currently on treatment for COVID. Completed remdesivir and he remains on dexamethasone Being sustained on AirVo and NRB mask but tachypneic. (2) Pneumonia due to COVID-19 virus: Code(s): U07.1 - COVID-19; J12.82 - Pneumonia due to coronavirus disease 2019 Status: Acute Assessment and Plan: As above. sigmacare vaccine x 1 07/06 but did not get the 2nd vaccine. Suspect COVID PNA on admission but PCR negative on 08/23 but COVID (+) by rapid screen on 08/26. Switched from Solu-Medrol to Decadron. He completed Remdesivir 09/01. Received tocilizumab 09/01. He remains on dexamethasone. Continue to support with supplemental 09/02 added prn lorazepam for anxiety 09/03 increased prn lorazepam and added low dose morphine for dyspnea. Patient did not wish to be intubated. Prognosis is poor. 09/04: spoke with . She states the whole household is COVID+ with coming of quarantine 09/15. She is agreement with DNR and wants to 'keep him comfortable'. She states the pateint has not wanted to continue with his current condition for some time. Patient also is still agreeable with hospice. All questions answered from patient and . Hospice consult. (3) Atrial fibrillation: Code(s): I48.91 - Unspecified atrial fibrillation Status: Acute Assessment and Plan: Patient developed AFib with RVR while hospitalized related to COVID, COPD and PNA. Currently on oral diltiazem and rate controlled. [id number] 3-4. Continue Xarelto for stroke prophylaxis. (4) CAP (community acquired pneumonia): Code(s): J18.9 - Pneumonia, unspecified organism Status: Acute Assessment and Plan: Bilateral lower lobe pneumonia noted on CTA and chest x-ray. COVID PCR was negative. Patient was started on abx and has completed a course of IV ceftriaxone and azithromycin. BCx and sputum culture are negative. Granddaughter tested positive for COVID and 08/26 patient was positive. As above. (5) COPD exacerbation: Code(s): J44.1 - Chronic obstructive pulmonary disease with (acute) exacerbation Status: Acute Assessment and Plan: Severe emphysema by CT chest. [place] to have COPD with exacerbation. Methylprednisolone changed to Decadron. Continue Albuterol HFA. Wean O2 as tolerated. (6) Bilateral lower extremity edema: Code(s): R60.0 - Localized edema Status: Resolved Assessment and Plan: Probably CHF with pedal edema with BNP 6790 and low EF. CTA chest 08/25 showing no PE but worsening PNA involving the bilateral lower lobes and RML with severe emphysema. Echo on 08/24 with EF 45-55%, indeterminate diastolic function, no wall motion abnormalities and mild pHTN. Was started on low dose Lasix. Still with pedal edema but better (suspect elbow edema is dependent). 09/03 Labs with prerenal pattern with mild hypokalemia, so furosemide di/c and PO potassium ordered. 09/04 Still with pedal edema. Na low but more chronic. BUN elevation from the steroids. Ct normal/low related to his poor muscle mass. Potassium corrected. Will follow for now (7) Hypertension: Code(s): I10 - Essential (primary) hypertension Status: Chronic Assessment and Plan: Patient's blood pressure was rev
--- NOTE | 2021-09-04 12:42 | PCNFU ---
Nutrition Follow-Up Complete: Increased protein needs related to wound as evidenced by stage II coccyx pressure ulcer Goal: Pt. to meet estimated nutritional needs Pt. is progressing towards goal. No new goal at this time. Pt current nutrition is heart healthy diet. Last recorded weight is 65.9 kg. Recommend re-weighing patient prior to discharge. Bowel Motility: No bowel movement documented. Labs Reviewed: Hgb 10.2, Hct 29.9, Na, 130, Cr, 0.60, BUN 45, Glu 149, Alb 2.5 Meds Noted: Albuterol, Lorazepam, Xarelto, Flomax Skin: Stage II coccyx pressure ulcer Additional Notes: Patients appetite fluctuates. He eats anywhere from 0-100% of meals. He is receiving Kirk BID providing 90 calories and 2.5 grams of protein to aid in wound healing as well as ensure compact BID providing an additional 220 calories and grams of protein to increase oral intake. Monitor pt. labs, medications, weight and oral intake every 5 days
--- NOTE | 2021-09-04 12:52 | PCPTNOTE ---
DC PT at this time-pt status changed to hospice care/comfort measures only
--- NOTE | 2021-09-04 12:54 | PCOTNOTE ---
Discharge from skilled OT at this time due to status change of hospice care/comfort measures only at this time.
--- NOTE | 2021-09-04 13:00 | PCOTNOTE ---
Pt. d/c to comfort care.
--- NOTE | 2021-09-04 13:56 | PCNSR ---
On 09/04/21, the student, Arleen Anaya, provided care and completed [facility] documentation on this patient. I have reviewed the student's documentation and agree with the findings.
--- NOTE | 2021-09-04 16:28 | PM.IMHP ---
H&P: HPI History of Present Illness Date/Time: 09/04/21 16:28 Chief Complaint: Uncontrolled dyspnea and anxiety Narrative: 76-year-old gentleman was admitted [facility] August 22 with COVID-19 pneumonia and new onset atrial fibrillation with rapid ventricular rate. He was treated with remdesivir dexamethasone and tocilizumab. Atrial fibrillation responded well to rate control and anticoagulation. However his COVID-19 pneumonia progressed. Currently he is requiring 60 L by Airvo and a non-rebreather mask over that. His oxygen saturations are in the upper 80s. He has severe uncontrolled dyspnea in spite of low-dose morphine and lorazepam p.r.n.. He does not wish to be intubated. At this point he wishes to transition to comfort care so that he can go home. He understands that he will likely not survive without mechanical ventilation. [facility] Past Medical History Medical History Benign prostate hyperplasia Chronic respiratory failure with hypoxia and hypercapnia COPD (chronic obstructive pulmonary disease) Hypertension Tobacco abuse Surgical History Surgical History H/O colonoscopy with polypectomy History of total left hip arthroplasty Family History Family History Mother Family history of malignant neoplasm, Onset Age: 75 Father Carcinoma of colon, Onset Age: 75 Patient's father is Social History Social History (Updated 09/04/21 @ 16:29 by Osiel Flowers MD) Social History: The patient stated that he use to smoke 1 and half packs of cigarettes a day. The patient has not smoked since mid-August. He has 5 step children and he lives with his . The patient does have living will. 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 He denies any alcohol marijuana or illicit drugs. Code status DNR Smoking packs per day: 2 Smoking cigarettes per day: 40.0 Years smoked: 65 Smoking pack-years: 130.00 Smoking status: Former smoker Tobacco type: cigarettes Smoking end date: 08/01/21 Alcohol intake: former Substance use: never Additional living arrangements comments: , daughter and grandchildren Spiritual care concerns: No Meds Home Medications and Allergies Home Medications Medication Instructions Recorded Confirmed Type Daliresp 500 mcg PO DAILY 07/19/21 08/23/21 History albuterol sulfate 2.5 mg CONTINUOUS NEBULIZATION QID 07/19/21 08/23/21 History PRN tamsulosin 0.4 mg PO DAILY 07/19/21 08/23/21 History amlodipine [Norvasc] 5 mg PO QAM #30 tablet 07/21/21 08/23/21 Rx ipratropium-albuterol 3 ml INHALATION QID PRN #90 ml 07/21/21 08/23/21 Rx melatonin 10 mg PO HS 08/23/21 08/23/21 History Allergies Allergy/AdvReac Type Severity Reaction Status Date / Time No Known Allergies Allergy Verified 08/22/21 15:07 Vital Signs Vital Signs - 24 hr 09/03/21 16:44 09/03/21 18:00 09/03/21 20:00 Temperature 97.1 F L 97.8 F Pulse Rate 89 82 82 Respiratory Rate 18 22 H Blood Pressure 108/53 L 102/55 L Pulse Oximetry 99 94 09/03/21 20:27 09/03/21 22:00 09/03/21 23:40 Temperature 97.9 F Pulse Rate 79 87 Respiratory Rate 22 H Blood Pressure 122/66 Pulse Oximetry 93 91 09/04/21 00:00 09/04/21 02:00 09/04/21 04:00 Temperature 97.9 F Pulse Rate 87 85 73 Respiratory Rate 22 H 24 H Blood Pressure 134/60 Pulse Oximetry 91 93 09/04/21 05:51 09/04/21 08:00 09/04/21 08:39 Temperature 96.9 F L Pulse Rate 88 85 Respiratory Rate 34 H Blood Pressure 110/64 Pulse Oximetry 92 93 09/04/21 09:59 09/04/21 11:19 09/04/21 12:00 Temperature 98.3 F Pulse Rate 97 87 92 Respiratory Rate 28 H Blood Pressure 99/47 L Pulse Oximetry 97 95 09/04/21 13:53 09/04/21 15:18 09/04/21 15:58 Temperature Pulse Rate 87 8
--- NOTE | 2021-09-04 16:28 | PM.DS ---
DS: Admitting Diagnosis Discharge Date 09/04/21 Admitting Diagnosis Shortness of breath DS: Discharge Diagnosis Discharge Diagnosis (1) Acute and chronic respiratory failure: Code(s): J96.20 - Acute and chronic respiratory failure, unspecified whether with hypoxia or hypercapnia Status: Acute Assessment and Plan: Acute on chronic respiratory failure with hypoxia placed on BiPAP on admission. Recently discharged on 08/07 on 5-6L O2 (Per the notes: O2 showed patient is requiring 5 L at rest and 6 L with exertion which is 1 L higher than his normal oxygen requirement). CT Chest 08/24 as mentioned below. Initially felt related to COPD exacerbation and PNA but now with COVID PNA. Completed 7 days of abx with Rocephin and Azithromycin. Suspect COVID present on admission given the CT findings. Currently on treatment for COVID. Treated with remdesivir and dexamethasone Being sustained on AirVo and NRB mask but tachypneic. He decided and family agreed to proceed to hospice care. Patietn transferred to inpatient hospice care. (2) Pneumonia due to COVID-19 virus: Code(s): U07.1 - COVID-19; J12.82 - Pneumonia due to coronavirus disease 2019 Status: Acute Assessment and Plan: As above. Pfizer vaccine x 1 07/06 but did not get the 2nd vaccine. Suspect COVID PNA on admission but PCR negative on 08/23 but COVID (+) by rapid screen on 08/26. Switched from Solu-Medrol to Decadron. He completed Remdesivir 09/01. Received tocilizumab 09/01. He remained on dexamethasone. 09/02 added prn lorazepam for anxiety 09/03 increased prn lorazepam and added low dose morphine for dyspnea. Patient did not wish to be intubated. Prognosis is poor. 09/04: spoke with . She states the whole household is COVID+ with coming of quarantine 09/15. She is agreement with DNR and wants to 'keep him comfortable'. She states the pateint has not wanted to continue with his current condition for some time. Patient also is still agreeable with hospice. All questions answered from patient and . Patient was transferred to inpatient Hospice (3) Atrial fibrillation: Code(s): I48.91 - Unspecified atrial fibrillation Status: Acute Assessment and Plan: Patient developed AFib with RVR while hospitalized related to COVID, COPD and PNA. Rate controlled with diltiazem. [id number] 3-4. Xarelto ws used for stroke prophylaxis. (4) CAP (community acquired pneumonia): Code(s): J18.9 - Pneumonia, unspecified organism Status: Acute Assessment and Plan: Bilateral lower lobe pneumonia noted on CTA and chest x-ray. COVID PCR was negative. Patient was started on abx and has completed a course of IV ceftriaxone and azithromycin. BCx and sputum culture are negative. Granddaughter tested positive for COVID and 08/26 patient was positive. As above. (5) COPD exacerbation: Code(s): J44.1 - Chronic obstructive pulmonary disease with (acute) exacerbation Status: Acute Assessment and Plan: Severe emphysema by CT chest. [place] to have COPD with exacerbation. Methylprednisolone changed to Decadron. (6) Bilateral lower extremity edema: Code(s): R60.0 - Localized edema Status: Resolved Assessment and Plan: Probably CHF with pedal edema with BNP 6790 and low EF. CTA chest 08/25 showing no PE but worsening PNA involving the bilateral lower lobes and RML with severe emphysema. Echo on 08/24 with EF 45-55%, indeterminate diastolic function, no wall motion abnormalities and mild pHTN. Was started on low dose Lasix. Still with pedal edema but better (suspect elbow edema is dependent). 09/03 Labs with prerenal pattern with mild hypokalemia, so furosemide d/c and PO potassium ordered. 09/04 Still with pedal edema. Na low but more chronic. BUN elevation from the steroids. Cr normal/low related to his poor muscle mass. Potassium corrected. (7) Hypertension: Code(s): I10 - [place]
== END 2021-09-04 16:39 | disposition hospice, inpatient (51) | DRG 177 ==
LOC: ANHED 15:19 → ANH3MEDSUR 21:02 → ANH2MED 08-26 07:38 → ANHIMU 09-04 16:32 → ANH2MED 09-13 09:50 → ANH3MEDSUR 09-13 09:50 → ANHCPC 09-13 09:50 → ANHIMU 09-13 09:50
PROVIDERS: Family Medicine; Internal Medicine; Internal Medicine Pulmonary Disease; Nurse Practitioner Adult Health; Physician Assistant; Admitting Provider Internal Medicine; Emergency Provider Emergency Medicine; PCP Family Medicine; Visit Provider Internal Medicine
DX: U07.1 COVID-19 (principal); J12.82 Pneumonia due to coronavirus disease 2019; J96.21 Acute and chronic respiratory failure with hypoxia; J96.22 Acute and chronic respiratory failure with hypercapnia; J43.9 Emphysema, unspecified; I48.0 Paroxysmal atrial fibrillation; N40.0 Benign prostatic hyperplasia without lower urinary tract symptoms; D63.8 Anemia in other chronic diseases classified elsewhere; I11.0 Hypertensive heart disease with heart failure; I50.9 Heart failure, unspecified; F41.9 Anxiety disorder, unspecified; D69.6 Thrombocytopenia, unspecified; Z66 Do not resuscitate; Z96.642 Presence of left artificial hip joint; Z99.81 Dependence on supplemental oxygen; Z87.891 Personal history of nicotine dependence; E87.6 Hypokalemia
CPT/HCPCS: 36415; 36600; 71045; 71275; 80048; 80053; 82375; 82565; 82607; 82728; 82746; 82805; 83050; 83540; 83550; 83605; 83615; 83735; 83880; 84100; 84460; 84484; 85025; 85027; 85610; 86140; 87040; 87070; 87205; 87426; 87804; 92610; 93005; 93306; 93970; 94640; 96365; 96375; 97110; 97162; 97165; 97530; 97535; 99285; A9270; C9803; G0378; J0456; J0696; J1100; J1650; J1940; J2060; J2270; J2920; J2930; J8540; Q0249; Q9967; U0003; U0005

== ENCOUNTER 2021-09-04 16:33 | HOS | payer OTHER, MEDICARE, SELFPAY ==
[2021-09-04 17:38] VITALS: BMI 18.1
[2021-09-04] MEDS: MORPHINE SULFATE (*CRX) 2 MG/ML INJ 1 MG IV PUSH ×2 (18:21→21:31)
--- NOTE | 2021-09-04 18:37 | PC.NURSE ---
This patient, Manolo Sweet, was received from [[facility]] on 09/04/21 at 1800. Report received from AKASH Leigh. Patient/family oriented to unit policies and routines
[2021-09-05] MEDS: MORPHINE SULFATE (*CRX) 2 MG/ML INJ 1 MG IV PUSH ×4 (01:59→13:46)
[2021-09-05 04:44] VITALS: BP 112/78; PULSE 118; RESP 20; TEMP 36.8; O2SAT 97
[2021-09-05 08:00] VITALS: BP 118/77; PULSE 114; RESP 20; TEMP 36.6; O2SAT 92
[2021-09-05] MEDS: LORazepam INJ (*CRX) 2 MG/ML VIAL 0.5 MG IV PUSH ×2 (09:28→13:45)
--- NOTE | 2021-09-05 13:57 | PM.IMPN ---
Progress Note: A&P Assessment and Plan (1) Palliative care by specialist: Code(s): Z51.5 - Encounter for palliative care Status: Acute Assessment and Plan: Meets general inpatient criteria due to requirement for continuous IV morphine for control of dyspnea and IV lorazepam for control of anxiety (2) Respiratory failure with hypoxia: Qualifiers: Chronicity: acute on chronic Qualified Code(s): J96.21 - Acute and chronic respiratory failure with hypoxia Code(s): J96.91 - Respiratory failure, unspecified with hypoxia Status: Acute (3) Pneumonia due to COVID-19 virus: Code(s): U07.1 - COVID-19; J12.82 - Pneumonia due to coronavirus disease 2019 Status: Acute (4) Atrial fibrillation: Qualifiers: Atrial fibrillation type: unspecified Qualified Code(s): I48.91 - Unspecified atrial fibrillation Code(s): I48.91 - Unspecified atrial fibrillation Status: Acute (5) COPD (chronic obstructive pulmonary disease): Qualifiers: COPD type: unspecified COPD Qualified Code(s): J44.9 - Chronic obstructive pulmonary disease, unspecified Code(s): J44.9 - Chronic obstructive pulmonary disease, unspecified Status: Chronic Subjective Date/time seen: 09/05/21 13:57 Interval history: 09/05 visit. Still short of breath and anxious. Hold little better. Received IV or p.o. med overnight. Received IV morphine every 4 hours and Ativan every 4 hours today. Still awake and anxious. Still feel short of breath. Review of Systems Review of Systems: All systems reviewed & are unremarkable except as noted in HPI and below Exam Narrative: Chronically ill-appearing elderly gentleman who is tachypneic and anxious Sclerae nonicteric Neck without JVD Chest coarse breath sound with scattered crackles Heart irregular with no audible murmurs Abdomen scaphoid with hypoactive bowel sounds nontender Extremities no edema cyanosis or clubbing Musculoskeletal with diffuse muscle wasting Neurologic cranial nerves 3-12 grossly intact Objective Data Vital Signs Vital Signs: Vital Signs - 24 hr 09/05/21 04:44 09/05/21 08:00 Temperature 98.3 F 97.8 F Pulse Rate 118 H 114 H Respiratory Rate 20 20 Blood Pressure 112/78 118/77 Pulse Oximetry 97 92 Intake/Output Intake/Output: Intake & Output 12/1109/03/21 09/04/21 09/05/21 23:59 23:59 23:59 23:59 Intake Total 240 Output Total 300 Balance -60 Meds/Results Medications: Active Medications Generic Name Dose Route Start Last Admin Trade Name Freq PRN Reason Stop Dose Admin Artificial Tears 1 drop 09/04/21 17:26 Artificial Tears Ophth Soln 15 Ml Bottle EACH EYE Q12HR PRN Dry Eye(s) Bisacodyl 10 mg 09/04/21 17:26 Bisacodyl 10 Mg Suppository RECTAL QAM PRN Constipation Glycopyrrolate 0.1 mg 09/04/21 17:48 Glycopyrrolate Inj (*Sp) 0.2 Mg/Ml Vial IV PUSH Q4H PRN Secretions Lorazepam 0.5 mg 09/04/21 17:24 09/05/21 13:45 Lorazepam Inj (*Crx) 2 Mg/Ml Vial IV PUSH 0.5 mg Q4H PRN Administration Anxiety and dyspnea Morphine Sulfate 1 mg 09/04/21 18:00 09/05/21 13:46 Morphine Sulfate (*Crx) 2 Mg/Ml Inj IV PUSH 1 mg Q4H ZARIA Administration Morphine Sulfate 1 mg 09/04/21 17:22 Morphine Sulfate (*Crx) 2 Mg/Ml Inj IV PUSH Q2HR PRN Shortness Of Breath Morphine Sulfate 5 mg 09/04/21 17:28 Morphine Sulfate Oral Conc Elena (*Crx) 10 Mg/0.5 Ml Syringe PO Q2H PRN Shortness Of Breath Morphine Sulfate 5 mg 09/04/21 18:00 09/05/21 13:41 Morphine Sulfate Oral Conc Elena (*Crx) 10 Mg/0.5 Ml Syringe PO Not Given Q4H ZARIA Prochlorperazine Edisylate 10 mg 09/04/21 17:26 Prochlorperazine Edisylate 10 Mg/2 Ml Vial IV PUSH Q6H PRN Nausea And Vomiting
--- NOTE | 2021-09-05 14:27 | HP_ITS ---
This report was moved to the correct visit, on 09/11/21. Original report was signed by Osiel Flowers MD on 09/05/21 [id number]. H&P: HPI History of Present Illness Date/Time: 09/04/21 16:28 Chief Complaint: Uncontrolled dyspnea and anxiety Narrative: 76-year-old gentleman was admitted [facility] August 22 with COVID-19 pneumonia and new onset atrial fibrillation with rapid ventricular rate. He was treated with remdesivir dexamethasone and tocilizumab. Atrial fibrillation responded well to rate control and anticoagulation. However his COVID-19 pneumonia progressed. Currently he is requiring 60 L by Airvo and a non-rebreather mask over that. His oxygen saturations are in the upper 80s. He has severe uncontrolled dyspnea in spite of low-dose morphine and lorazepam p.r.n.. He does not wish to be intubated. At this point he wishes to transition to comfort care so that he can go home. He understands that he will likely not survive without mechanical ventilation. [facility] Past Medical History Medical History Benign prostate hyperplasia Chronic respiratory failure with hypoxia and hypercapnia COPD (chronic obstructive pulmonary disease) Hypertension Tobacco abuse Surgical History Surgical History H/O colonoscopy with polypectomy History of total left hip arthroplasty Family History Family History Mother Family history of malignant neoplasm, Onset Age: 75 Father Carcinoma of colon, Onset Age: 75 Patient's father is Social History Social History (Updated 09/04/21 @ 16:29 by Osiel Flowers MD) Social History: The patient stated that he use to smoke 1 and half packs of cigarettes a day. The patient has not smoked since mid-August. He has 5 step children and he lives with his . The patient does have living will. 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 He denies any alcohol marijuana or illicit drugs. Code status DNR Smoking packs per day: 2 Smoking cigarettes per day: 40.0 Years smoked: 65 Smoking pack-years: 130.00 Smoking status: Former smoker Tobacco type: cigarettes Smoking end date: 08/01/21 Alcohol intake: former Substance use: never Additional living arrangements comments: , daughter and grandchildren Spiritual care concerns: No Meds Home Medications and Allergies Home Medications Medication Instructions Recorded Confirmed Type Daliresp 500 mcg PO DAILY 07/19/21 08/23/21 History albuterol sulfate 2.5 mg CONTINUOUS NEBULIZATION QID 07/19/21 08/23/21 History PRN tamsulosin 0.4 mg PO DAILY 07/19/21 08/23/21 History amlodipine [Norvasc] 5 mg PO QAM #30 tablet 07/21/21 08/23/21 Rx ipratropium-albuterol 3 ml INHALATION QID PRN #90 ml 07/21/21 08/23/21 Rx melatonin 10 mg PO HS 08/23/21 08/23/21 History Allergies Allergy/AdvReac Type Severity Reaction Status Date / Time No Known Allergies Allergy Verified 08/22/21 15:07 Vital Signs Vital Signs - 24 hr 09/03/21 16:44 09/03/21 18:00 09/03/21 20:00 Temperature 97.1 F L 97.8 F Pulse Rate 89 82 82 Respiratory Rate 18 22 H Blood Pressure 108/53 L 102/55 L Pulse Oximetry 99 94 09/03/21 20:27 09/03/21 22:00 09/03/21 23:40 Temperature 97.9 F Pulse Rate 79 87 Respiratory Rate 22 H Blood Pressure 122/66 Pulse Oximet
[2021-09-05] MEDS: MORPHINE SULFATE INJ (*CRX) 50 MG in SODIUM CHLORIDE 0.9% IV 95 ML IV CONT (15:49)
[2021-09-05 20:00] VITALS: BP 135/77; PULSE 102; RESP 22; TEMP 36.2; O2SAT 100; O2SAT 95
[2021-09-05] MEDS: LORazepam INJ (*CRX) 2 MG/ML VIAL 1 MG IV PUSH (20:57)
[2021-09-06] MEDS: LORazepam INJ (*CRX) 2 MG/ML VIAL 1 MG IV PUSH ×4 (02:43→21:00)
[2021-09-06] MEDS: MORPHINE SULFATE (*CRX) 2 MG/ML INJ IV PUSH (02:43)
[2021-09-06 08:00] VITALS: BP 122/79; PULSE 118; RESP 28; TEMP 36.4; O2SAT 90
[2021-09-06] MEDS: ARTIFICIAL TEARS OPHTH SOLN 15 ML BOTTLE 1 DROP EACH EYE (09:37)
[2021-09-06] MEDS: MORPHINE SULFATE INJ (*CRX) 50 MG in SODIUM CHLORIDE 0.9% IV 95 ML IV CONT (16:16)
[2021-09-06] MEDS: GLYCOPYRROLATE INJ (*SP) 0.2 MG/ML VIAL 0.1 MG IV PUSH (17:15)
[2021-09-06 20:00] VITALS: BP 59/34; PULSE 114; RESP 12; TEMP 36; O2SAT 87
--- NOTE | 2021-09-06 23:41 | PM.IMPN ---
Progress Note: A&P Assessment and Plan (1) Palliative care by specialist: Code(s): Z51.5 - Encounter for palliative care Status: Acute Assessment and Plan: Meets general inpatient criteria due to requirement for continuous IV morphine for control of dyspnea and IV lorazepam for control of anxiety (2) Respiratory failure with hypoxia: Qualifiers: Chronicity: acute on chronic Qualified Code(s): J96.21 - Acute and chronic respiratory failure with hypoxia Code(s): J96.91 - Respiratory failure, unspecified with hypoxia Status: Acute (3) Pneumonia due to COVID-19 virus: Code(s): U07.1 - COVID-19; J12.82 - Pneumonia due to coronavirus disease 2019 Status: Acute (4) Atrial fibrillation: Qualifiers: Atrial fibrillation type: unspecified Qualified Code(s): I48.91 - Unspecified atrial fibrillation Code(s): I48.91 - Unspecified atrial fibrillation Status: Acute (5) COPD (chronic obstructive pulmonary disease): Qualifiers: COPD type: unspecified COPD Qualified Code(s): J44.9 - Chronic obstructive pulmonary disease, unspecified Code(s): J44.9 - Chronic obstructive pulmonary disease, unspecified Status: Chronic Subjective Date/time seen: 09/06/21 23:41 Interval history: 09/06 televisit: Comfortable after increased scheduled lorazepam. Continues on morphine. Review of Systems Review of Systems: ROS unobtainable: Yes unobtainable due to medical condition Exam Narrative: Resting comfortably Objective Data Vital Signs Vital Signs: Vital Signs - 24 hr 09/06/21 08:00 09/06/21 20:00 Temperature 97.5 F L 96.8 F L Pulse Rate 118 H 114 H Respiratory Rate 28 H 12 Blood Pressure 122/79 59/34 L Pulse Oximetry 90 87 L Intake/Output Intake/Output: Intake & Output 09/03/21 09/04/21 09/05/21 09/06/21 23:59 23:59 23:59 23:59 Intake Total 980 570 Output Total 650 350 Balance 330 220 Meds/Results Medications: Active Medications Generic Name Dose Route Start Last Admin Trade Name Freq PRN Reason Stop Dose Admin Acetaminophen 650 mg 09/05/21 14:25 Acetaminophen 325 Mg Tablet PO Q4H PRN Headache Artificial Tears 1 drop 09/04/21 17:26 09/06/21 09:37 Artificial Tears Ophth Soln 15 Ml Bottle EACH EYE 1 drop Q12HR PRN Administration Dry Eye(s) Bisacodyl 10 mg 09/04/21 17:26 Bisacodyl 10 Mg Suppository RECTAL QAM PRN Constipation Glycopyrrolate 0.1 mg 09/04/21 17:48 09/06/21 17:15 Glycopyrrolate Inj (*Sp) 0.2 Mg/Ml Vial IV PUSH 0.1 mg Q4H PRN Administration Secretions Morphine Sulfate 50 mg/ Sodium 100 mls @ 2 mls/hr 09/05/21 16:00 09/06/21 16:16 Chloride IV CONT 1 mg/hr .Q24H ZARIA 2 mls/hr Administration 1 MG/HR Lorazepam 1 mg 09/06/21 17:00 09/06/21 21:00 Lorazepam Inj (*Crx) 2 Mg/Ml Vial IV PUSH 1 mg Q4HR ZARIA Administration Morphine Sulfate 2 mg 09/05/21 14:23 09/06/21 02:43 Morphine Sulfate (*Crx) 2 Mg/Ml Inj IV PUSH 2 mg Q2HR PRN Administration dyspnea/pain Prochlorperazine Edisylate 10 mg 09/04/21 17:26 Prochlorperazine Edisylate 10 Mg/2 Ml Vial IV PUSH Q6H PRN Nausea And Vomiting
[2021-09-07] MEDS: LORazepam INJ (*CRX) 2 MG/ML VIAL 1 MG IV PUSH ×6 (00:51→21:09)
[2021-09-07] MEDS: GLYCOPYRROLATE INJ (*SP) 0.2 MG/ML VIAL 0.1 MG IV PUSH (00:52)
[2021-09-07 08:00] VITALS: BP 126/102; PULSE 71; RESP 16; TEMP 36.2; O2SAT 90
[2021-09-07] MEDS: MORPHINE SULFATE INJ (*CRX) 50 MG in SODIUM CHLORIDE 0.9% IV 95 ML IV CONT (16:03)
--- NOTE | 2021-09-07 17:14 | PM.IMPN ---
Progress Note: A&P Assessment and Plan (1) Palliative care by specialist: Code(s): Z51.5 - Encounter for palliative care Status: Acute Assessment and Plan: Meets general inpatient criteria due to requirement for scheduled IV morphine for control of dyspnea and IV lorazepam for control of anxiety (2) Respiratory failure with hypoxia: Qualifiers: Chronicity: acute on chronic Qualified Code(s): J96.21 - Acute and chronic respiratory failure with hypoxia Code(s): J96.91 - Respiratory failure, unspecified with hypoxia Status: Acute (3) Pneumonia due to COVID-19 virus: Code(s): U07.1 - COVID-19; J12.82 - Pneumonia due to coronavirus disease 2019 Status: Acute (4) Atrial fibrillation: Qualifiers: Atrial fibrillation type: unspecified Qualified Code(s): I48.91 - Unspecified atrial fibrillation Code(s): I48.91 - Unspecified atrial fibrillation Status: Acute (5) COPD (chronic obstructive pulmonary disease): Qualifiers: COPD type: unspecified COPD Qualified Code(s): J44.9 - Chronic obstructive pulmonary disease, unspecified Code(s): J44.9 - Chronic obstructive pulmonary disease, unspecified Status: Chronic Subjective Date/time seen: 09/07/21 17:14 Interval history: 09/07 visit. Resting comfortably since lorazepam scheduled. Review of Systems Review of Systems: ROS unobtainable: Yes unobtainable due to medical condition Exam Narrative: Sleeping soundly. Lying recumbent in hospital bed. Mouth open. Minimal tachypnea. No audible rhonchi or wheezes. No cyanosis. Objective Data Vital Signs Vital Signs: Vital Signs - 24 hr 09/06/21 20:00 09/07/21 08:00 Temperature 96.8 F L 97.2 F L Pulse Rate 114 H 71 Respiratory Rate 12 16 Blood Pressure 59/34 L 126/102 H Pulse Oximetry 87 L 90 Intake/Output Intake/Output: Intake & Output 09/04/21 09/05/21 09/06/21 09/07/21 23:59 23:59 23:59 23:59 Intake Total 980 570 100 Output Total 650 350 Balance 330 220 100 Meds/Results Medications: Active Medications Generic Name Dose Route Start Last Admin Trade Name Freq PRN Reason Stop Dose Admin Acetaminophen 650 mg 09/05/21 14:25 Acetaminophen 325 Mg Tablet PO Q4H PRN Headache Artificial Tears 1 drop 09/04/21 17:26 09/06/21 09:37 Artificial Tears Ophth Soln 15 Ml Bottle EACH EYE 1 drop Q12HR PRN Administration Dry Eye(s) Bisacodyl 10 mg 09/04/21 17:26 Bisacodyl 10 Mg Suppository RECTAL QAM PRN Constipation Glycopyrrolate 0.1 mg 09/04/21 17:48 09/07/21 00:52 Glycopyrrolate Inj (*Sp) 0.2 Mg/Ml Vial IV PUSH 0.1 mg Q4H PRN Administration Secretions Morphine Sulfate 50 mg/ Sodium 100 mls @ 2 mls/hr 09/05/21 16:00 09/07/21 16:03 Chloride IV CONT 1 mg/hr .Q24H ZARIA 2 mls/hr Administration 1 MG/HR Lorazepam 1 mg 09/06/21 17:00 09/07/21 13:34 Lorazepam Inj (*Crx) 2 Mg/Ml Vial IV PUSH 1 mg Q4HR ZARIA Administration Morphine Sulfate 2 mg 09/05/21 14:23 09/06/21 02:43 Morphine Sulfate (*Crx) 2 Mg/Ml Inj IV PUSH 2 mg Q2HR PRN Administration dyspnea/pain Prochlorperazine Edisylate 10 mg 09/04/21 17:26 Prochlorperazine Edisylate 10 Mg/2 Ml Vial IV PUSH Q6H PRN Nausea And Vomiting
[2021-09-07 20:00] VITALS: BP 97/51; PULSE 82; RESP 15; TEMP 36.6; O2SAT 91
[2021-09-08] MEDS: LORazepam INJ (*CRX) 2 MG/ML VIAL 1 MG IV PUSH ×4 (01:29→12:26)
[2021-09-08 08:00] VITALS: BP 88/46; PULSE 110; RESP 10; TEMP 36.4; O2SAT 90
[2021-09-08 09:00] VITALS: O2SAT 91
--- NOTE | 2021-09-08 14:20 | PCNWS ---
Weekly nutritional screen. Pt screened in for BMI of 18.2. No weight loss reported. Spoke with nursing who reports that pt is hospice. No nutritional needs at this time. No further nutritional interventions at this time.
--- NOTE | 2021-09-18 23:06 | PM.DDS ---
Discharge Summary Date and Time Date of : 09/08/21 Time of : 15:40 Provider Pronounced By: Lois Motley RN Probable Cause of Probable Cause of : COVID-19 PNEUMONIA Summary Hospital Course: Admitted to inpatient hospice service due to uncontrolled dyspnea. Medications titrated to comfort. Patient peacefully. Additional Data Confirmation of as documented by pronouncing clinician: Pupillary Reflex, Palpable Pulses, Response to Stimuli, Heart Tones and Breath Sounds Name of Provider Notified: Dr. Flowers Time Provider Notified: 16:30 Provider Requests Autopsy: No Family Requests Autopsy: No [facility] Chief Scientist Notified: Yes Date [facility] Notified of : 09/08/21 Time [facility] Notified of : 16:25
== END 2021-09-08 15:40 | disposition expired | DRG 951 ==
LOC: ANHIMU 17:47 → ANH3MEDSUR 17:58
PROVIDERS: Admitting Provider Internal Medicine; PCP Family Medicine; Visit Provider Internal Medicine
DX: Z51.5 Encounter for palliative care (principal); U07.1 COVID-19; J12.82 Pneumonia due to coronavirus disease 2019; J96.21 Acute and chronic respiratory failure with hypoxia; J44.0 Chronic obstructive pulmonary disease with (acute) lower respiratory infection; J44.1 Chronic obstructive pulmonary disease with (acute) exacerbation; I48.91 Unspecified atrial fibrillation; Z66 Do not resuscitate; Z87.891 Personal history of nicotine dependence
CPT/HCPCS: A9270; J2060; J2270